=== PATIENT | male | born 1930 | race Caucasian/White ===

== ENCOUNTER 2019-10-20 19:46 | Inpatient (IN) | payer MEDICARE ==
--- NOTE | 2019-10-20 21:43 | XR ---
EXAMINATION TYPE: XR chest 2V DATE OF EXAM: 10/20/2019 COMPARISON: 07/04/2014 HISTORY: Difficulty breathing TECHNIQUE: Frontal and lateral views of the chest are obtained. FINDINGS: There is an enlarged cardiomediastinal silhouette. Retrocardiac opacity may represent conf luent pulmonary edema as there are is a small right and trace left pleural effusion. Bibasilar opacit ies are seen with moderate pulmonary vascular congestion. Osseous structures are suboptimally viewed however there is diffuse osseous demineralization seen. Right minor fissural fluid is present. No siz able pneumothorax seen. IMPRESSION: Findings suggesting cardiogenic fluid overload with small right and trace left pleural e ffusions, moderate pulmonary vascular congestion and marked cardiomegaly. Bibasilar airspace disease likely represents atelectasis or confluent pulmonary edema. Pneumonia is less likely.
[2019-10-20 21:46] LABS: Basophils % (A) 0 %; Eosinophils # (A) 0.1 k/uL (0-0.7); Eosinophils % (A) 1 %; HCT 47.4 % (39.0-53.0); HGB 14.9 gm/dL (13.0-17.5); Hypochromasia Slight; Lymphocytes # (A) 1.5 k/uL (1.0-4.8); Lymphocytes % (A) 15 %; MCH 29.2 pg (25.0-35.0); MCHC 31.5 g/dL (31.0-37.0); MCV 92.7 fL (80.0-100.0); Mean Platelet Volume 11.5; Monocytes # (A) 0.5 k/uL (0-1.0); Monocytes % (A) 5 %; Neutrophils # (A) 7.7 k/uL (1.3-7.7); Neutrophils % (A) 77 %; RBC 5.11 m/uL (4.30-5.90); RDW 13.8 % (11.5-15.5)
[2019-10-20 21:58] LABS: ALT 25 U/L (4-49); AST 29 U/L (17-59); African American GFR (CKD) >90 (>60 ml/min/1.73 sqM); Albumin 3.9 g/dL (3.5-5.0); Alkaline Phosphatase 114 U/L (38-126); Anion Gap 9 mmol/L; Blood Urea Nitrogen 24 mg/dL (9-20); Calcium 8.6 mg/dL (8.4-10.2); Carbon Dioxide 25 mmol/L (22-30); Chloride 109 mmol/L (98-107); Glucose 129 mg/dL (74-99); Magnesium 2.1 mg/dL (1.6-2.3); Non-African American GFR(CKD) 79 (>60 ml/min/1.73 sqM); Potassium 4.6 mmol/L (3.5-5.1); Sodium 143 mmol/L (137-145); Total Bilirubin 0.8 mg/dL (0.2-1.3)
[2019-10-20 22:01] LABS: Partial Thromboplastin Time 24.4 sec (22.0-30.0); Prothrombin Time 10.1 sec (9.0-12.0)
[2019-10-20 22:34] LABS: Platelet Count 136 k/uL (150-450)
[2019-10-20] MEDS ORDERED: FUROSEMIDE 10 MG/ML 4 ML VIAL IV STA (22:55)
--- NOTE | 2019-10-20 22:59 | ED ---
General Adult HPI - General Chief complaint: Shortness of Breath Stated complaint: SOB Time Seen by Provider: 10/20/19 20:06 Source: patient, EMS, RN notes reviewed Mode of arrival: EMS Limitations: no limitations - History of Present Illness Initial comments: 89-year-old male with a past medical history of CAD, heart failure, diabetes mellitus, hyperlipidemia, hypertension presents to the emergency department for a chief complaint of shortness of breath. Patient has had shortness of breath since yesterday. He states this worsens when he lies flat. Patient states he actually feels better at this time. He denies any associated chest pain whatso ever. Patient does have baseline dementia. We spoke with patient's legal guardian who does want him evaluated although he wanted to leave because he felt better.Patient has no other complaints at this time including chest pain, abdominal pain, nausea or vomiting, headache, or visual changes. - Related Data Home Medications Medication Instructions Recorded Confirmed Multivitamins, Thera [Multivitamin 1 tab PO DAILY 10/20/19 10/20/19 (formulary)] Allergies Allergy/AdvReac Type Severity Reaction Status Date / Time No Known Allergies Allergy Verified 10/20/19 23:02 Review of Systems ROS Statement: Those systems with pertinent positive or pertinent negative responses have been documented in the HPI. ROS Other: All systems not noted in ROS Statement are negative. Past Medical History Past Medical History: Coronary Artery Disease (CAD), Heart Failure, Diabetes Mellitus, Hyperlipidemia, Hypertension, Osteoarthritis (OA) Additional Past Medical History / Comment(s): obesity valley fever History of Any Multi-Drug Resistant Organisms: None Reported Additional Past Surgical History / Comment(s): lung surg Past Anesthesia/Blood Transfusion Reactions: No Reported Reaction Past Psychological History: No Psychological Hx Reported Smoking Status: Former smoker Past Alcohol Use History: Rare Past Drug Use History: None Reported - Past Family History Father Family Medical History: Myocardial Infarction ([place]) Additional Family Medical History / Comment(s): emphysema General Exam Limitations: no limitations General appearance: alert, in no apparent distress Head exam: Present: atraumatic, normocephalic, normal inspection Eye exam: Present: normal appearance, PERRL, EOMI. Absent: scleral icterus, conjunctival injection, periorbital swelling ENT exam: Present: normal exam, mucous membranes moist Neck exam: Present: normal inspection, full ROM. Absent: tenderness, meningismus, lymphadenopathy Respiratory exam: Present: decreased breath sounds. Absent: respiratory distress, wheezes, rales, rhonchi, stridor Cardiovascular Exam: Present: regular rate, normal rhythm, normal heart sounds. Absent: systolic murmur, diastolic murmur, rubs, gallop, clicks GI/Abdominal exam: Present: soft, normal bowel sounds. Absent: distended, tenderness, guarding, rebound, rigid Neurological exam: Present: alert Course Vital Signs 10/20/19 10/20/19 19:59 22:19 Temperature 98.1 F Pulse Rate 67 98 Respiratory 18 18 Rate Blood Pressure 148/109 151/100 O2 Sat by Pulse 97 96 Oximetry EKG Findings - EKG Comments: EKG Findings:: Sinus rhythm, right bundle branch, ventricular rate 110, VA to 140, QTC 535. This was compared to previous EKG from 2015 and appears similar Medical Decision Making - Medical Decision Making Vitals are stable however patient is requiring 4 L nasal cannula which she does not normally require at home. Heart rate is 67. Patient had exacerbation of CHF in 2014 and had an echo cardiogram performed which showed an ejection fraction of 25-30%. Today CBC CMP unremarkable. BNP is 13,500. Troponin 1 is 0.065. Chest x-ray suggestive of cardiogenic fluid overload with small right and trace left pleural effusion, moderate pulmonary vascular congestion and marked cardiomegaly. Bibasilar disease likely represents atelectasis or confluent pulmonary edema. She was started on Lasix. He does not have any chest pain and was therefore not heparinize. This is likely troponin leak. He will be admitted to [facility]. Dr. Hall did accept admission. - Lab Data Result diagrams: 10/20/19 21:28 10/20/19 21:28 Lab Results 10/20/19 10/20/19 10/20/19 Range/Units 21:28 21:28 21:28 WBC 10.0 (3.8-10.6) k/uL RBC 5.11 (4.30-5.90) m/uL Hgb 14.9 (13.0-17.5) gm/dL Hct 47.4 (39.0-53.0) % MCV 92.7 (80.0-100.0) fL MCH 29.2 (25.0-35.0) pg MCHC 31.5 (31.0-37.0) g/dL RDW 13.8 (11.5-15.5) % Plt Count 136 L (150-450) k/uL Neutrophils % 77 % Lymphocytes % 15 % Monocytes % 5 % Eosinophils % 1 % Basophils % 0 % Neutrophils # 7.7 (1.3-7.7) k/uL Lymphocytes # 1.5 (1.0-4.8) k/uL Monocytes # 0.5 (0-1.0) k/uL Eosinophils # 0.1 (0-0.7) k/uL Basophils # 0.0 (0-0.2) k/uL Hypochromasia Slight PT 10.1 (9.0-12.0) sec INR 1.0 (<1.2) APTT 24.4 (22.0-30.0) sec Sodium 143 (137-145) mmol/L Potassium 4.6 (3.5-5.1) mmol/L Chloride 109 H (98-107) mmol/L Carbon Dioxide 25 (22-30) mmol/L Anion Gap 9 mmol/L BUN 24 H (9-20) mg/dL Creatinine 0.84 (0.66-1.25) mg/dL Est GFR (CKD-EPI)AfAm >90 (>60 ml/min/1.73 sqM) Est GFR (CKD-EPI)NonAf 79 (>60 ml/min/1.73 sqM) Glucose 129 H (74-99) mg/dL Calcium 8.6 (8.4-10.2) mg/dL Magnesium 2.1 (1.6-2.3) mg/dL Total Bilirubin 0.8 (0.2-1.3) mg/dL AST 29 (17-59) U/L ALT 25 (4-49) U/L Alkaline Phosphatase 114 (38-126) U/L Troponin I (0.000-0.034) ng/mL NT-Pro-B Natriuret Pep pg/mL Total Protein 7.0 (6.3-8.2) g/dL Albumin 3.9 (3.5-5.0) g/dL 10/20/19 10/20/19 Range/Units 21:28 21:28 WBC (3.8-10.6) k/uL RBC (4.30-5.90) m/uL Hgb (13.0-17.5) gm/dL Hct (39.0-53.0) % MCV (80.0-100.0) fL MCH (25.0-35.0) pg MCHC (31.0-37.0) g/dL RDW (11.5-15.5) % Plt Count (150-450) k/uL Neutrophils % % Lymphocytes % % Monocytes % % Eosinophils % % Basophils % % Neutrophils # (1.3-7.7) k/uL Lymphocytes # (1.0-4.8) k/uL Monocytes # (0-1.0) k/uL Eosinophils # (0-0.7) k/uL Basophils # (0-0.2) k/uL Hypochromasia PT (9.0-12.0) sec INR (<1.2) APTT (22.0-30.0) sec Sodium (137-145) mmol/L Potassium (3.5-5.1) mmol/L Chloride (98-107) mmol/L Carbon Dioxide (22-30) mmol/L Anion Gap mmol/L BUN (9-20) mg/dL Creatinine (0.66-1.25) mg/dL Est GFR (CKD-EPI)AfAm (>60 ml/min/1.73 sqM) Est GFR (CKD-EPI)NonAf (>60 ml/min/1.73 sqM) Glucose (74-99) mg/dL Calcium (8.4-10.2) mg/dL Magnesium (1.6-2.3) mg/dL Total Bilirubin (0.2-1.3) mg/dL AST (17-59) U/L ALT (4-49) U/L Alkaline Phosphatase (38-126) U/L Troponin I 0.065 H* (0.000-0.034) ng/mL NT-Pro-B Natriuret Pep 24677 pg/mL Total Protein (6.3-8.2) g/dL Albumin (3.5-5.0) g/dL Disposition Clinical Impression: Bilateral pleural effusion, Acute pulmonary edema, HTN (hypertension), Shortness of breath, CHF exacerbation Disposition: ADMITTED IP TO THIS [facility] Condition: Fair Is patient prescribed a controlled substance at d/c from ED?: No Referrals: None,Stated [Primary Care Provider] - 1-2 days Time of Disposition: 22:59
[2019-10-20] MEDS ORDERED: NITROGLYCERIN SL TABS 0.4 MG TAB SUBLINGUAL PRN (23:14)
[2019-10-20] MEDS ORDERED: ASPIRIN 81 MG PO STA (23:14)
[2019-10-20] MEDS: FUROSEMIDE 10 MG/ML 4 ML VIAL IV SCH (23:51)
[2019-10-21 00:41] LABS: Glucose,Whole Blood 114 mg/dL (75-99)
[2019-10-21 04:06] LABS: Cholesterol 182 mg/dL (<200); HDL Cholesterol 33 mg/dL (40-60); LDL Cholesterol,Calculated 135 mg/dL (0-99); Triglycerides 69 mg/dL (<150)
[2019-10-21] MEDS: FUROSEMIDE 10 MG/ML 4 ML VIAL IV SCH ×2 (08:43→22:37)
[2019-10-21] MEDS ORDERED: ASPIRIN 325 MG TAB PO SCH (09:00)
[2019-10-21 11:26] LABS: Glucose,Whole Blood 99 mg/dL (75-99)
[2019-10-21 11:28] VITALS: BMI 35.6
[2019-10-21] MEDS: LOSARTAN 50 MG TAB PO SCH (12:57)
[2019-10-21 16:13] LABS: Glucose,Whole Blood 107 mg/dL (75-99)
[2019-10-21] MEDS: CARVEDILOL 3.125 MG TAB PO SCH (16:47)
--- NOTE | 2019-10-21 18:05 | HP ---
HISTORY AND PHYSICAL CHIEF COMPLAINT: Shortness of breath. HISTORY OF PRESENT ILLNESS: This is the first known admission for this 89-year-old white male who apparently lives in some type of a chcf. He does have a history of coronary artery disease and heart failure as well as diabetes and hyperlipidemia, but he is not on any medication. He is brought into the emergency room with shortness of breath. He was found to have cardiomegaly and small bilateral pleural effusions. He had no chest pain. He was admitted. REVIEW OF SYSTEMS: He denies any headaches, neurologic problems, difficulty with vision or hearing, chest pain, murmurs, rheumatic fever, abdominal pain, vomiting, diarrhea, melena, hematochezia, renal failure, hematuria, frequency, urgency, incontinence, nocturia, symptoms of hyperglycemia, etc. Past medical history, family history and personal and social histories are essentially otherwise unknown. He is only on a multivitamin apparently. He has no known allergies. He denies any surgery and denies smoking or drinking. 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 LABORATORY STUDIES: Demonstrated hemoglobin of 14 [place] [address]. Platelets were 166,000. INR was normal. Electrolytes were normal. BUN was slightly elevated at 24 with the creatinine 0.84. Blood sugar was 129. His troponin was elevated [place] [address]. PHYSICAL EXAMINATION: Blood pressure is 148/109 with a pulse of 67, respirations of 18. He is afebrile. Pulse ox was 97. In general, he appeared to be well developed, well nourished, in no acute distress. Skin color is normal. Skin is warm and dry. Lymph nodes are not enlarged. Head, ears, eyes, nose, mouth, and throat were normal. Neck veins not distended. Thyroid was not enlarged. Chest was clear. The cardiac exam demonstrated a grade 2/6 systolic murmur heard over the left precordium. The abdomen was slightly protuberant, soft, nontender without visceromegaly or masses. Bowel sounds were present. Extremities normal. Neurologically he was intact. 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 IMPRESSION: 1. Congestive heart failure. 2. Probable non ST segment elevation myocardial infarction. 3. Cardiac murmur. 4. Skin neoplasm on the left cheek. 5. Type 2 insulin dependent diabetes mellitus. 6. History of coronary artery disease. PLAN: 1. Bed rest. 2. IV fluids. 3. Serial EKGs and enzymes. 4. Consult with Cardiology. MMCODYL / IJN: [id number] /
--- NOTE | 2019-10-21 18:11 | PN ---
PROGRESS NOTE CHIEF COMPLAINT: Shortness of breath and congestive heart failure. HISTORY OF PRESENT ILLNESS: This gentleman is doing well. He has had no chest pain. Enzymes have been up. PHYSICAL EXAMINATION: Chest is clear posteriorly. Cardiac exam demonstrates his murmur and the abdomen is soft and nontender. Extremities are normal. IMPRESSION: 1. Acute congestive heart failure. 2. Chronic congestive heart failure. 3. Dilated cardiomyopathy. 4. Non ST segment elevation myocardial infarction. 5. Diabetes. 6. Lesion on the left cheek. PLAN: No change in program and await recommendations from Cardiology. MMODL / IJN: [id number] /
[2019-10-21 20:14] LABS: Glucose,Whole Blood 103 mg/dL (75-99)
[2019-10-22 06:11] LABS: Glucose,Whole Blood 89 mg/dL (75-99)
[2019-10-22] MEDS: CARVEDILOL 3.125 MG TAB PO SCH ×2 (06:20→17:27)
[2019-10-22] MEDS: LOSARTAN 50 MG TAB PO SCH (10:21)
[2019-10-22] MEDS: ASPIRIN 81 MG PO SCH (10:21)
[2019-10-22] MEDS: ATORVASTATIN 40 MG TAB PO SCH (10:21)
[2019-10-22 11:36] LABS: Glucose,Whole Blood 87 mg/dL (75-99)
[2019-10-22] MEDS: FUROSEMIDE 10 MG/ML 4 ML VIAL IV SCH ×2 (11:51→22:33)
--- NOTE | 2019-10-22 12:19 | P.CRDCN ---
History of Present Illness History of present illness: Miguel Angel Melchor This is Dr. Pradhan dictating a consult on this patient The patient was interviewed and examined by me IMPRESSION / ASSESSMENT: Patient admitted with increasing shortness of breath Hypertension and elevated blood pressure readings upon admission Abnormal troponins with a rising trend, non-Q-wave myocardial infarction Elevated LDL low HDL Past history of cardio myopathy and current symptoms of congestive heart failure likely systolic PLAN: Continue IV Lasix Start carvedilol 3.125 mg twice daily and losartan 50 mg by mouth daily Start atorvastatin Reduce aspirin to 81 mg daily IV heparin Strict intake output HPI Patient presents with increasing shortness of breath. Deny chest discomfort but his chronic enzymes are abnormal He has a history of cardio myopathy does not take his medications There is question in more detail his history was not very forthcoming. 70 stereo short of breath ROS: No fever chills or rigors, no cough, phlegm or expectoration, no nausea, vomiting or diarrhea, no hematuria, dysuria, no musculoskeletal complaints, no strokes or seizures, no skin lesions. EXAMINATION: Afebrile, blood pressure 157-89 and 126/80 short of breath Heart rates in the 60s REVIEW OF LABS, ECG & MEDICAL DATA Chest x-ray was reviewed and shows to increased pulmonary vascular markings/congestion Posterior retrocardiac density on the lateral view Twelve-lead ECG shows sinus tachycardia right bundle branch block left anterior fascicular block no ST segment abnormalities In 2015 he had severe LV dysfunction ejection fraction 25% (Across the aortic valve around 21 mmHg White count 10, hemoglobin 14.9, platelet count 136,000 Sodium 143 potassium 4.6 BUN 24 creatinine 0.84 Troponin 0.065 and 0.1 LDL 135 ProBNP 13,000 Renal function normal 0.84 creatinine Past Medical History Past Medical History: Coronary Artery Disease (CAD), Heart Failure, Diabetes Mellitus, Hyperlipidemia, Hypertension, Osteoarthritis (OA) Additional Past Medical History / Comment(s): obesity valley fever History of Any Multi-Drug Resistant Organisms: None Reported Additional Past Surgical History / Comment(s): lung surg Past Anesthesia/Blood Transfusion Reactions: No Reported Reaction Past Psychological History: No Psychological Hx Reported Smoking Status: Former smoker Past Alcohol Use History: Rare Past Drug Use History: None Reported - Past Family History Father Family Medical History: Myocardial Infarction ([place]) Additional Family Medical History / Comment(s): emphysema Medications and Allergies Home Medications Medication Instructions Recorded Confirmed Type Multivitamins, Thera [Multivitamin 1 tab PO DAILY 10/20/19 10/20/19 History (formulary)] Allergies Allergy/AdvReac Type Severity Reaction Status Date / Time No Known Allergies Allergy Verified 10/20/19 23:02 Physical Exam Vitals: Vital Signs Temp Pulse Pulse Resp BP BP Pulse Ox 10/21/19 08:00 96.9 F L 66 16 126/80 97 10/21/19 04:00 69 18 157/89 96 10/21/19 00:00 18 10/20/19 23:54 99 18 137/84 96 10/20/19 23:39 98.7 F 22 160/96 97 10/20/19 23:14 97 10/20/19 22:19 98 18 151/100 96 10/20/19 19:59 98.1 F 67 18 148/109 97 Intake and Output 10/20/19 10/21/19 10/21/19 22:59 06:59 14:59 Output Total 1500 550 Balance -1500 -550 Output: Urine 1500 550 Other: # Voids 2 Weight 112.491 kg 112.9 kg Results 10/20/19 21:28 10/20/19 21:28 Cardiac Enzymes 10/20/19 10/20/19 10/21/19 Range/Units 21:28 21:28 03:31 AST 29 (17-59) U/L Troponin I 0.065 H* 0.106 H* (0.000-0.034) ng/mL Coagulation 10/20/19 Range/Units 21:28 PT 10.1 (9.0-12.0) sec APTT 24.4 (22.0-30.0) sec Lipids 10/21/19 Range/Units 03:31 Triglycerides 69 (<150) mg/dL Cholesterol 182 (<200) mg/dL HDL Cholesterol 33 L (40-60) mg/dL CBC 10/20/19 Range/Units 21:28 WBC 10.0 (3.8-10.6) k/uL RBC 5.11 (4.30-5.90) m/uL Hgb 14.9 (13.0-17.5) gm/dL Hct 47.4 (39.0-53.0) % Plt Count 136 L (150-450) k/uL Comprehensive Metabolic Panel 10/20/19 Range/Units 21:28 Sodium 143 (137-145) mmol/L Potassium 4.6 (3.5-5.1) mmol/L Chloride 109 H (98-107) mmol/L Carbon Dioxide 25 (22-30) mmol/L BUN 24 H (9-20) mg/dL Creatinine 0.84 (0.66-1.25) mg/dL Glucose 129 H (74-99) mg/dL Calcium 8.6 (8.4-10.2) mg/dL AST 29 (17-59) U/L ALT 25 (4-49) U/L Alkaline Phosphatase 114 (38-126) U/L Total Protein 7.0 (6.3-8.2) g/dL Albumin 3.9 (3.5-5.0) g/dL Current Medications Generic Name Dose Route Start Last Admin Trade Name Freq PRN Reason Stop Dose Admin Aspirin 81 mg 10/22/19 09:00 Aspirin PO DAILY [facility] Atorvastatin Calcium 40 mg 10/22/19 09:00 Lipitor PO DAILY [facility] Carvedilol 3.125 mg 10/21/19 17:30 Coreg PO BID-W/MEALS [facility] Furosemide 40 mg 10/20/19 23:30 10/21/19 08:43 Lasix IV 40 mg Q12H [facility] Administration Losartan Potassium 50 mg 10/21/19 10:45 Cozaar PO DAILY [facility] Nitroglycerin 0.4 mg 10/20/19 23:14 Nitrostat SUBLINGUAL Q5M PRN Chest Pain Intake and Output 10/20/19 10/21/19 10/21/19 22:59 06:59 14:59 Output Total 1500 550 Balance -1500 -550 Output: Urine 1500 550 Other: # Voids 2 Weight 112.491 kg 112.9 kg 10/20/19 21:28 10/20/19 21:28
--- NOTE | 2019-10-22 12:32 | P.PN ---
Subjective Mr. Melchor Blood pressures 101/51, 126/78 mmHg afebrile pulse rate in the 50s and 60s Yesterday his blood pressure was elevated He is doing a lot better today. He is able to lie flat in bed not short of breath is a full history denies any chest discomfort No chest discomfort prior to admission either Only shortness of breath and coughing Feeling a lot better now On examination sitting up comfortably in bed No JVD, Blood pressures are well controlled Bibasilar crackles Systolic murmur No lower extremity edema Mucosae are moist He does not appear short of breath at all Impression Congestive heart failure likely systolic, 2-D echo pending Borderline abnormal troponins, likely non-Q-wave myocardial infarction Significant improvement with medical treatment This patient does not take any medications at home but in the past has had a history of cardio myopathy, systolic in the Suggest 2-D echo and Doppler study TSH CMP today The patient expressed his wishes that he wanted be treated medically only without any invasive procedures done He said he was 89 years old and he was still doing pretty well He promised he would come and see us in the office and take his medications regularly as prescribed He will see me in the office and I will maximize his medications prior to discharge Objective - Vital Signs Vital signs: Vital Signs Temp 98.3 F 10/22/19 11:56 Pulse 65 10/22/19 11:56 Resp 18 10/22/19 11:56 BP 126/78 10/22/19 11:56 Pulse Ox 99 10/22/19 11:56 Intake & Output 10/21/19 10/22/19 10/22/19 18:59 06:59 18:59 Intake Total 120 Output Total 1050 2125 Balance -1049 -2124 120 Weight 112.9 kg 104.5 kg Intake: Oral 120 Output: Urine 1050 2125 Other: Voiding Method Urinal Urinal # Voids 2 - Labs CBC & Chem 7: 10/20/19 21:28 10/20/19 21:28 Labs: Abnormal Lab Results - Last 24 Hours (Table) 10/21/19 10/21/19 Range/Units 16:11 20:12 POC Glucose (mg/dL) 107 H 103 H (75-99) mg/dL
[2019-10-22 13:24] LABS: African American GFR (CKD) >90 (>60 ml/min/1.73 sqM); Anion Gap 3 mmol/L; Blood Urea Nitrogen 24 mg/dL (9-20); Calcium 8.5 mg/dL (8.4-10.2); Carbon Dioxide 39 mmol/L (22-30); Chloride 96 mmol/L (98-107); Glucose 110 mg/dL (74-99); Non-African American GFR(CKD) 82 (>60 ml/min/1.73 sqM); Sodium 138 mmol/L (137-145)
[2019-10-22 13:28] LABS: Potassium 4.4 mmol/L (3.5-5.1)
--- NOTE | 2019-10-22 15:24 | PN ---
PROGRESS NOTE DATE OF SERVICE: 10/22/2019. CHIEF COMPLAINT: Congestive heart failure. HISTORY OF PRESENT ILLNESS: This gentleman is doing a little bit better. He is feeling a little bit less short of breath. PHYSICAL EXAMINATION: He still has scattered rales posteriorly and cardiac exam is unchanged with his murmur. Abdomen is soft, nontender. Neck veins not distended. IMPRESSION: 1. Acute congestive heart failure. 2. Pleural effusions. PLAN: 1. Continue with diuresis. 2. Repeat chest x-ray. 3. He can probably be discharged soon. MMODL / IJN: [id number] /
[2019-10-22 16:57] LABS: Glucose,Whole Blood 117 mg/dL (75-99)
[2019-10-22 20:36] LABS: Glucose,Whole Blood 119 mg/dL (75-99)
[2019-10-23 03:41] VITALS: RESP 18
[2019-10-23 06:19] LABS: Glucose,Whole Blood 99 mg/dL (75-99)
[2019-10-23] MEDS: CARVEDILOL 3.125 MG TAB PO SCH (06:23)
[2019-10-23 09:29] VITALS: TEMP 98.7
[2019-10-23] MEDS: ASPIRIN 81 MG PO SCH (09:30)
[2019-10-23] MEDS: ATORVASTATIN 40 MG TAB PO SCH (09:30)
[2019-10-23] MEDS: LOSARTAN 50 MG TAB PO SCH (09:30)
[2019-10-23] MEDS: FUROSEMIDE 10 MG/ML 4 ML VIAL IV SCH (09:30)
[2019-10-23 11:28] VITALS: BP 119/72; PULSE 57
[2019-10-23 12:14] LABS: Glucose,Whole Blood 108 mg/dL (75-99)
--- NOTE | 2019-10-23 15:07 | P.PN ---
Subjective Progress Note Date: 10/23/19 This is a pleasant 89-year-old gentleman with documented history of hypertension, hyperlipidemia congestive heart failure, who presented to the hospital with symptoms of worsening shortness of breath as well as accelerated hypertension. He was also noted to have abnormality in troponin, suggestive of a non-Q-wave myocardial infarction. Patient was seen in consultation by Dr. Pradhan over the weekend, he had diuresed well on IV Lasix and at the time of her examination today was feeling overall significantly better, breathing stable, up ambulating in the room and the vo without any difficulty. Denied any chest discomfort. Blood pressure 120/70 with a heart rate in the 60s, 97% on 2 L of oxygen. No lab data today. Objective - Vital Signs Vital signs: Vital Signs Temp 98.7 F 10/23/19 08:00 Pulse 57 L 10/23/19 11:48 Resp 18 10/23/19 11:48 BP 119/72 10/23/19 11:25 Pulse Ox 97 10/23/19 11:25 Intake & Output 10/22/19 10/23/19 10/23/19 18:59 06:59 18:59 Intake Total 714 110 360 Output Total 1675 Balance 714 -1565 360 Weight 101.5 kg Intake: IV 10 Invasive Line 2 10 Oral 714 100 360 Output: Urine 1675 Other: Voiding Method Urinal Urinal # Voids 1 0 # Bowel Movements 0 - Exam PHYSICAL EXAMINATION: GENERAL: 89-year-old gentleman in no acute distress at the time of my examination HEENT: Head is atraumatic, normocephalic. Pupils equal, round. Sclera anicteric. Conjunctiva are clear. Mucous membranes of the mouth are moist. Neck is supple. There is no elevated jugular venous pressure. No carotid bruit is heard. HEART EXAMINATION: Heart S1 S2 1 systolic murmur is heard CHEST EXAMINATION: Lungs are clear to auscultation and precussion. No chest wall tenderness is noted on palpation or with deep breathing. ABDOMEN: Soft, nontender. Bowel sounds are heard. No organomegaly noted. EXTREMITIES: 2+ peripheral pulses with no evidence of peripheral edema and no calf tenderness noted. NEUROLOGIC patient is awake, alert and oriented 3 . . - Labs CBC & Chem 7: 10/20/19 21:28 10/22/19 12:55 Labs: Abnormal Lab Results - Last 24 Hours (Table) 10/22/19 10/22/19 10/23/19 Range/Units 16:56 20:36 12:01 POC Glucose (mg/dL) 117 H 119 H 108 H (75-99) mg/dL Assessment and Plan Plan: Assessment and plan #1 accelerated hypertension #2 systolic congestive heart failure acute on chronic #3 hyperlipidemia #4 non-Q-wave FL Plan We will discontinue the IV Lasix and start the patient on oral diuretics. From cardiology's perspective he may be able to be discharged home today to follow-up in the office post discharge. DNP note has been reviewed, I agree with a documented findings and plan of care. Patient was seen and examined.
[2019-10-23] MEDS ORDERED: FUROSEMIDE 40 MG TAB PO SCH (16:00)
[2019-10-24] MEDS ORDERED: SPIRONOLACTONE 25 MG TAB PO SCH (09:00)
--- NOTE | 2019-10-24 21:24 | ECHOF ---
Referral Reason:sob MEASUREMENTS -------- HEIGHT: 177.8 cm WEIGHT: 101.2 kg BP: IVSd: 1.6 cm (0.6 - 1.1) LVIDd: 5.3 cm (3.9 - 5.3) LVPWd: 1.9 cm (0.6 - 1.1) IVSs: 1.7 cm LVIDs: 4.1 cm LVPWs: 2.0 cm RVIDd: 3.8 cm (< 3.3) LAESV Index (A-L): 62.79 ml/m Ao Diam: 4.1 cm (2.0 - 3.7) AV Cusp: 0.9 cm (1.5 - 2.6) EPSS: 1.1 cm MV E Jonathan: 0.67 m/s MV DecT: 172 ms MV A Jonathan: 0.85 m/s MV E/A Ratio: 0.79 AV maxP.75 mmHg AV meanP.63 mmHg RAP: 5.00 mmHg RVSP: 37.39 mmHg MV EF SLOPE: 45.41 mm/s (70 - 150) MV EXCURSION: 16.79 mm (> 18.000) FINDINGS -------- Undetermined rhythm. This was a technically difficult study with suboptimal apical views. The left ventricular size is normal. There is severe concentric left ventricular hypertrophy. The re is moderate global hypokinesis of LV . Overall left ventricular systolic function is moderately impaired with, an EF between 35 - 40 %. Mitral Doppler inflow pattern suggests diastolic filling ab normality {E/E'}. The right ventricle is mild to moderately enlarged. LA is severely dilated >40 ml/m2 The right atrium was not well visualized. Lumason used Interatrial and interventricular septum intact. There is moderate aortic stenosis present. Peak/mean gradient across the Aortic Valve is 33.75mmHg / 21.63mmHg. [id number] mitral regurgitation is present. Moderate tricuspid regurgitation present. There is mild pulmonary hypertension. The right ventric ular systolic pressure, as measured by Doppler, is 37.39mmHg. There is no pulmonic regurgitation present. The aortic root size is normal. IVC Not well visulized. There is a small, generalized pericardial effusion present. CONCLUSIONS -------- 1. Undetermined rhythm. 2. This was a technically difficult study with suboptimal apical views. 3. The left ventricular size is normal. 4. There is severe concentric left ventricular hypertrophy. 5. There is moderate global hypokinesis of LV . 6. Overall left ventricular systolic function is moderately impaired with, an EF between 35 - 40 %. 7. Mitral Doppler inflow pattern suggest diastolic filling abnormality {E/E'}. 8. The right ventricle is mild to moderately enlarged. 9. LA is severely dilated >40 ml/m2 10. The right atrium was not well visualized. 11. Lumason used 12. Interatrial and interventricular septum intact. 13. There is moderate aortic stenosis present. 14. Peak/mean gradient across the Aortic Valve is 33.75mmHg / 21.63mmHg. 15. Kfyo-ow-fqkkvcsv mitral regurgitation is present. 16. Moderate tricuspid regurgitation present. 17. There is mild pulmonary hypertension. 18. The right ventricular systolic pressure, as measured by Doppler, is 37.39mmHg. 19. There is no pulmonic regurgitation present. 20. The aortic root size is normal. 21. IVC Not well visulized. 22. There is a small, generalized pericardial effusion present. HEALTHCARE SOCIAL WORKER: Bryanna Seals RDCS
== END 2019-10-23 16:00 | disposition home or self-care (01) | DRG 280 ==
LOC: EEVIPCON 19:46 → EC 19:46 → 3SCARD 22:52
PROVIDERS: ADMIT Family Medicine; ATTEND Family Medicine
DX: I21.4 Non-ST elevation (NSTEMI) myocardial infarction (principal); I50.23 Acute on chronic systolic (congestive) heart failure; I42.0 Dilated cardiomyopathy; I45.2 Bifascicular block; I11.0 Hypertensive heart disease with heart failure; E11.9 Type 2 diabetes mellitus without complications; E78.5 Hyperlipidemia, unspecified; F03.90 Unspecified dementia, unspecified severity, without behavioral disturbance, psychotic disturbance, mood disturbance, and anxiety; I25.10 Atherosclerotic heart disease of native coronary artery without angina pectoris; Z79.4 Long term (current) use of insulin; Z82.49 Family history of ischemic heart disease and other diseases of the circulatory system; Z82.5 Family history of asthma and other chronic lower respiratory diseases; Z87.891 Personal history of nicotine dependence; E66.9 Obesity, unspecified; Z68.32 Body mass index [BMI] 32.0-32.9, adult; Z11.59 Encounter for screening for other viral diseases; R01.1 Cardiac murmur, unspecified; C44.309 Unspecified malignant neoplasm of skin of other parts of face
CPT/HCPCS: 36415; 71046; 80048; 80053; 80061; 83735; 83880; 84443; 84484; 85025; 85610; 85730; 87635; 93005; 93306; 96374; 99285

== ENCOUNTER 2019-11-18 10:21 | Emergency (ER) | payer MEDICARE ==
[2019-11-18 10:33] VITALS: RESP 18
[2019-11-18 10:49] LABS: Glucose,Whole Blood 109 mg/dL (75-99)
[2019-11-18 11:09] LABS: Partial Thromboplastin Time 24.6 sec (22.0-30.0); Prothrombin Time 10.7 sec (9.0-12.0)
[2019-11-18 11:10] LABS: Basophils % (A) 0 %; Eosinophils # (A) 0.2 k/uL (0-0.7); Eosinophils % (A) 2 %; HCT 42.6 % (39.0-53.0); HGB 14.2 gm/dL (13.0-17.5); Lymphocytes # (A) 1.7 k/uL (1.0-4.8); Lymphocytes % (A) 25 %; MCH 29.6 pg (25.0-35.0); MCHC 33.4 g/dL (31.0-37.0); MCV 88.7 fL (80.0-100.0); Mean Platelet Volume 10.6; Monocytes # (A) 0.4 k/uL (0-1.0); Monocytes % (A) 5 %; Neutrophils # (A) 4.6 k/uL (1.3-7.7); Neutrophils % (A) 66 %; Platelet Count 102 k/uL (150-450)
[2019-11-18 11:20] LABS: Albumin 3.5 g/dL (3.5-5.0); Calcium 8.8 mg/dL (8.4-10.2); Magnesium 2.1 mg/dL (1.6-2.3); Potassium 4.4 mmol/L (3.5-5.1); Total Bilirubin 1.1 mg/dL (0.2-1.3); Total Protein 6.4 g/dL (6.3-8.2)
--- NOTE | 2019-11-18 11:23 | XR ---
EXAMINATION TYPE: XR chest 2V DATE OF EXAM: 11/18/2019 HISTORY: difficulty breathing. REFERENCE: Previous study dated 10/20/2019. FINDINGS: The heart is enlarged. There is some minimal right basilar airspace disease. There is blunt ing of the right CP angle. I see no definite edema. IMPRESSION: 1. CARDIOMEGALY. 2. I COULD NOT EXCLUDE A DEVELOPING RIGHT LOWER LOBE INFILTRATE.
--- NOTE | 2019-11-18 12:06 | CT ---
EXAMINATION TYPE: CT brain wo con DATE OF EXAM: 11/18/2019 COMPARISON: NONE HISTORY: generalized weakness CT DLP: 1082.4 mGycm Automated exposure control for dose reduction was used. FINDINGS: There are generalized changes of sulcal prominence and ventriculomegaly compatible with atrophic garcia ge. There is physiologic calcification of the basal ganglia. There is diffuse periventricular white m atter lucency compatible with chronic white matter ischemic change. There is mild vascular calcificat ion. There is no acute focal lesion, mass effect or midline shift identified. I do not see evidence o f intracranial blood. Visualized portions of the paranasal sinuses and mastoids are clear. The bony calvarium is intact. IMPRESSION: 1. NO ACUTE INTRACRANIAL ABNORMALITY. 2. DEGENERATIVE CHANGE.
[2019-11-18] MEDS ORDERED: cefTRIAXone IN SWFI 1,000 MG/10 ML SYRINGE IVP STA (13:18)
--- NOTE | 2019-11-18 13:33 | ED ---
Weakness HPI - General Chief complaint: Weakness Stated complaint: weakness Time Seen by Provider: 11/18/19 10:28 Source: patient, EMS, RN notes reviewed Mode of arrival: EMS Limitations: no limitations - History of Present Illness Initial comments: This 89-year-old male who states he's been feeling wobbly when he tries to walk onset this morning he says slight cough no fevers chills no sweats just a dry cough. The chest pain no palpitations no focal weakness is felt wobbly MD Complaint: generalized weakness - Related Data Home Medications Medication Instructions Recorded Confirmed Multivitamins, Thera [Multivitamin 1 tab PO DAILY 10/20/19 10/20/19 (formulary)] Previous Rx's Medication Instructions Recorded Aspirin 81 mg PO DAILY #100 chew 10/23/19 Atorvastatin [Lipitor] 40 mg PO DAILY #30 tab 10/23/19 Carvedilol [Coreg] 3.125 mg PO BID-W/MEALS #60 tab 10/23/19 Furosemide [Lasix] 40 mg PO BID@0900,1600 #60 tab 10/23/19 Losartan [Cozaar] 50 mg PO DAILY #30 tab 10/23/19 Spironolactone [Aldactone] 25 mg PO DAILY #30 tab 10/23/19 Azithromycin [Zithromax Z-pack] 250 mg PO DIRECTED #6 tab 11/18/19 Allergies Allergy/AdvReac Type Severity Reaction Status Date / Time No Known Allergies Allergy Verified 11/18/19 10:29 Review of Systems ROS Statement: Those systems with pertinent positive or pertinent negative responses have been documented in the HPI. ROS Other: All systems not noted in ROS Statement are negative. Past Medical History Past Medical History: Coronary Artery Disease (CAD), Heart Failure, Diabetes Mellitus, Hyperlipidemia, Hypertension, Osteoarthritis (OA) Additional Past Medical History / Comment(s): obesity valley fever History of Any Multi-Drug Resistant Organisms: None Reported Additional Past Surgical History / Comment(s): lung surg Past Anesthesia/Blood Transfusion Reactions: No Reported Reaction Past Psychological History: No Psychological Hx Reported Smoking Status: Former smoker Past Alcohol Use History: Rare Past Drug Use History: None Reported - Past Family History Father Family Medical History: Myocardial Infarction ([place]) Additional Family Medical History / Comment(s): emphysema General Exam - General Exam Comments Initial Comments: This is a well-developed well-nourished awake alert oriented 3 male Limitations: no limitations General appearance: alert, in no apparent distress Head exam: Present: atraumatic, normocephalic, normal inspection Eye exam: Present: normal appearance, PERRL, EOMI. Absent: scleral icterus, conjunctival injection, periorbital swelling ENT exam: Present: mucous membranes dry Neck exam: Present: normal inspection. Absent: tenderness, meningismus, lymphadenopathy Respiratory exam: Present: normal lung sounds bilaterally. Absent: respiratory distress, wheezes, rales, rhonchi, stridor Cardiovascular Exam: Present: regular rate, normal rhythm, normal heart sounds. Absent: systolic murmur, diastolic murmur, rubs, gallop, clicks GI/Abdominal exam: Present: soft, normal bowel sounds. Absent: distended, tenderness, guarding, rebound, rigid Extremities exam: Present: normal inspection, full ROM, normal capillary refill. Absent: tenderness, pedal edema, joint swelling, calf tenderness Back exam: Present: normal inspection Neurological exam: Present: alert, oriented X3, CN II-XII intact Psychiatric exam: Present: normal affect, normal mood Skin exam: Present: warm, dry, intact, normal color. Absent: rash Course Vital Signs 11/18/19 10:22 Temperature 98.4 F Pulse Rate 84 Respiratory 18 Rate Blood Pressure 140/84 O2 Sat by Pulse 96 Oximetry Medical Decision Making - Medical Decision Making Patient was feeling much improved after IV hydration. He feels no chest pain no palpitations no shortness of breath is able ambulate without any difficulty whatsoever. We did discuss the findings he would like to be discharged he'll be placed on oral antibiotics. She did remove his own IV while in the room. Return parameters discussed - Lab Data Result diagrams: 11/18/19 10:40 11/18/19 10:40 Lab Results 11/18/19 11/18/19 11/18/19 Range/Units 10:40 10:40 10:40 WBC 7.0 (3.8-10.6) k/uL RBC 4.80 (4.30-5.90) m/uL Hgb 14.2 (13.0-17.5) gm/dL Hct 42.6 (39.0-53.0) % MCV 88.7 (80.0-100.0) fL MCH 29.6 (25.0-35.0) pg MCHC 33.4 (31.0-37.0) g/dL RDW 13.0 (11.5-15.5) % Plt Count 102 L (150-450) k/uL Neutrophils % 66 % Lymphocytes % 25 % Monocytes % 5 % Eosinophils % 2 % Basophils % 0 % Neutrophils # 4.6 (1.3-7.7) k/uL Lymphocytes # 1.7 (1.0-4.8) k/uL Monocytes # 0.4 (0-1.0) k/uL Eosinophils # 0.2 (0-0.7) k/uL Basophils # 0.0 (0-0.2) k/uL PT 10.7 (9.0-12.0) sec INR 1.0 (<1.2) APTT 24.6 (22.0-30.0) sec Sodium 139 (137-145) mmol/L Potassium 4.4 (3.5-5.1) mmol/L Chloride 105 (98-107) mmol/L Carbon Dioxide 30 (22-30) mmol/L Anion Gap 4 mmol/L BUN 27 H (9-20) mg/dL Creatinine 1.09 (0.66-1.25) mg/dL Est GFR (CKD-EPI)AfAm 70 (>60 ml/min/1.73 sqM) Est GFR (CKD-EPI)NonAf 61 (>60 ml/min/1.73 sqM) Glucose 114 H (74-99) mg/dL POC Glucose (mg/dL) (75-99) mg/dL POC Glu Brim Curler ID Plasma Lactic Acid Franklyn (0.7-2.0) mmol/L Calcium 8.8 (8.4-10.2) mg/dL Magnesium 2.1 (1.6-2.3) mg/dL Total Bilirubin 1.1 (0.2-1.3) mg/dL AST 22 (17-59) U/L ALT 18 (4-49) U/L Alkaline Phosphatase 78 (38-126) U/L Creatine Kinase 23 L (55-170) U/L Troponin I (0.000-0.034) ng/mL Total Protein 6.4 (6.3-8.2) g/dL Albumin 3.5 (3.5-5.0) g/dL 06/21/20 06/21/20 06/21/20 Range/Units 10:40 10:40 10:47 WBC (3.8-10.6) k/uL RBC (4.30-5.90) m/uL Hgb (13.0-17.5) gm/dL Hct (39.0-53.0) % MCV (80.0-100.0) fL MCH (25.0-35.0) pg MCHC (31.0-37.0) g/dL RDW (11.5-15.5) % Plt Count (150-450) k/uL Neutrophils % % Lymphocytes % % Monocytes % % Eosinophils % % Basophils % % Neutrophils # (1.3-7.7) k/uL Lymphocytes # (1.0-4.8) k/uL Monocytes # (0-1.0) k/uL Eosinophils # (0-0.7) k/uL Basophils # (0-0.2) k/uL PT (9.0-12.0) sec INR (<1.2) APTT (22.0-30.0) sec Sodium (137-145) mmol/L Potassium (3.5-5.1) mmol/L Chloride (98-107) mmol/L Carbon Dioxide (22-30) mmol/L Anion Gap mmol/L BUN (9-20) mg/dL Creatinine (0.66-1.25) mg/dL Est GFR (CKD-EPI)AfAm (>60 ml/min/1.73 sqM) Est GFR (CKD-EPI)NonAf (>60 ml/min/1.73 sqM) Glucose (74-99) mg/dL POC Glucose (mg/dL) 109 H (75-99) mg/dL POC Glu Brim Curler ID Svacha, II, Vignesh Plasma Lactic Acid Franklyn 1.4 (0.7-2.0) mmol/L Calcium (8.4-10.2) mg/dL Magnesium (1.6-2.3) mg/dL Total Bilirubin (0.2-1.3) mg/dL AST (17-59) U/L ALT (4-49) U/L Alkaline Phosphatase (38-126) U/L Creatine Kinase (55-170) U/L Troponin I 0.013 (0.000-0.034) ng/mL Total Protein (6.3-8.2) g/dL Albumin (3.5-5.0) g/dL - EKG Data -: EKG Interpreted by Me (Sinus rhythm with occasional PVCs by bundle-branch block left anterior fasc) EKG Comments: I bundle-branch block left anterior fascicular block rate 81 WI interval 150 QRS duration 160 QT since QTC 450/522 - Radiology Data Radiology results: report reviewed (Imaging was reviewed there is some evidence of early pneumonia and a right lower lobe.), image reviewed Disposition Clinical Impression: Pneumonitis, Dehydration, Premature ventricular contractions Disposition: HOME SELF-CARE Condition: Good Prescriptions: Azithromycin [Zithromax Z-pack] 250 mg PO DIRECTED #6 tab Is patient prescribed a controlled substance at d/c from ED?: No Referrals: None,Stated [Primary Care Provider] - 1-2 days
[2019-11-18] MEDS ORDERED: AZITHROMYCIN 500 MG TAB PO STA (13:59)
[2019-11-18 14:00] VITALS: BP 119/85; PULSE 78; TEMP 97.9
== END 2019-11-18 14:18 | disposition home or self-care (01) ==
LOC: EC 10:21
DX: I49.3 Ventricular premature depolarization (principal); E86.0 Dehydration; J18.9 Pneumonia, unspecified organism; Z87.891 Personal history of nicotine dependence; Z82.49 Family history of ischemic heart disease and other diseases of the circulatory system
CPT/HCPCS: 36415; 70450; 71046; 80053; 82550; 83605; 83735; 84484; 85025; 85610; 85730; 87040; 93005; 99285

== ENCOUNTER 2020-07-31 12:49 | Inpatient (IN) | payer MEDICARE ==
--- NOTE | 2020-07-31 13:10 | ED ---
General Adult HPI - General Chief complaint: Allergic Reaction Stated complaint: Scrotal edema Time Seen by Provider: 07/31/20 12:50 Source: patient, EMS Mode of arrival: EMS Limitations: no limitations - History of Present Illness Initial comments: Patient is a pleasant 89-year-old male presenting to the emergency department with concerns regarding scrotal edema. Onset of symptoms was around 2 weeks ago. Patient denies any associated discomfort or color change. No difficulty with urination. No history of similar symptoms previously. Patient does receive his injection for immunization of providers around this time. No dyspnea or leg swelling. - Related Data Home Medications Medication Instructions Recorded Confirmed Multivitamins, Thera [Multivitamin 1 tab PO DAILY 10/20/19 10/20/19 (formulary)] Previous Rx's Medication Instructions Recorded Aspirin 81 mg PO DAILY #100 chew 10/23/19 Atorvastatin [Lipitor] 40 mg PO DAILY #30 tab 10/23/19 Furosemide [Lasix] 40 mg PO BID@0900,1600 #60 tab 10/23/19 Losartan [Cozaar] 50 mg PO DAILY #30 tab 10/23/19 Spironolactone [Aldactone] 25 mg PO DAILY #30 tab 10/23/19 carvediloL [Coreg] 3.125 mg PO BID-W/MEALS #60 tab 10/23/19 Azithromycin [Zithromax Z-pack] 250 mg PO DIRECTED #6 tab 11/18/19 Allergies Allergy/AdvReac Type Severity Reaction Status Date / Time No Known Allergies Allergy Verified 07/31/20 12:58 Review of Systems ROS Statement: Those systems with pertinent positive or pertinent negative responses have been documented in the HPI. ROS Other: All systems not noted in ROS Statement are negative. Constitutional: Denies: fever Eyes: Denies: eye pain ENT: Denies: ear pain Respiratory: Denies: cough, dyspnea Cardiovascular: Denies: chest pain Endocrine: Denies: fatigue Gastrointestinal: Denies: abdominal pain Genitourinary: Reports: as per HPI. Denies: dysuria, testicular pain Musculoskeletal: Denies: back pain Skin: Denies: rash Neurological: Denies: weakness Past Medical History Past Medical History: Coronary Artery Disease (CAD), Heart Failure, Diabetes Mellitus, Hyperlipidemia, Hypertension, Osteoarthritis (OA) Additional Past Medical History / Comment(s): obesity valley fever History of Any Multi-Drug Resistant Organisms: None Reported Additional Past Surgical History / Comment(s): lung surg Past Anesthesia/Blood Transfusion Reactions: No Reported Reaction Past Psychological History: No Psychological Hx Reported Past Alcohol Use History: Rare Past Drug Use History: None Reported - Past Family History Father Family Medical History: Myocardial Infarction ([place]) Additional Family Medical History / Comment(s): emphysema General Exam Limitations: no limitations General appearance: alert, in no apparent distress Head exam: Present: atraumatic Eye exam: Present: other (Mild left-sided edema without erythema) Neck exam: Present: normal inspection Respiratory exam: Present: normal lung sounds bilaterally Cardiovascular Exam: Present: regular rate, normal rhythm GI/Abdominal exam: Present: soft. Absent: tenderness exam: Present: other (Moderate edema of the scrotum and penis. No tenderness. No erythema. No skin breakdown or lacerations.) Extremities exam: Present: normal inspection Neurological exam: Present: alert Psychiatric exam: Present: normal affect, normal mood Skin exam: Present: normal color Course Vital Signs 07/31/20 07/31/20 12:50 15:51 Temperature 97.8 F Pulse Rate 87 68 Respiratory 18 18 Rate Blood Pressure 147/97 99/70 O2 Sat by Pulse 94 L 94 L Oximetry Medical Decision Making - Medical Decision Making Patient reevaluated and updated. Case discussed with Dr. Weaver, who will admit covering for hospital call. - Radiology Data Radiology results: report reviewed (Ultrasound the scrotum concerning for third spacing versus cellulitis), image reviewed (Chest x-ray concerning for interstitial edema) Disposition Clinical Impression: Edema Disposition: ADMITTED IP TO THIS HOSP Is patient prescribed a controlled substance at d/c from ED?: No Referrals: None,Stated [Primary Care Provider] - 1-2 days Decision Time: 16:04
--- NOTE | 2020-07-31 14:35 | US ---
EXAMINATION TYPE: US scrotum with doppler. DATE OF EXAM: 07/31/2020 COMPARISON: NONE CLINICAL HISTORY: 89-year-old male with edema TECHNIQUE: Grayscale and color Doppler Duplex imaging performed of the scrotum. FINDINGS: Severe diffuse scrotal soft tissue thickening and edema up to 4.8 cm thick. EXAM MEASUREMENTS: TESTICLES: Right Testicle: 3.8 x 2.9 x 2.4 cm. Left Testicle: 3.8 x 2.5 x 2.6 cm. The testicles show normal homogeneous appearance without hyperemia. There is satisfactory arterial an d venous flow bilaterally. EPIDIDYMIS HEAD: Right Epididymis: .6 x 1.2 x .8 cm Left Epididymis: .8 x 1.5 x .8 cm Presence of hydroceles: yes, moderate on both sides. IMPRESSION: 1. Moderate bilateral hydroceles and severe edematous thickening of the scrotum. Correlate for severe third spacing or cellulitis. 2. No sonographic evidence for testicular torsion or epididymoorchitis.
--- NOTE | 2020-07-31 15:33 | XR ---
EXAMINATION TYPE: XR chest 2V DATE OF EXAM: 07/31/2020 COMPARISON: Chest x-ray 11/18/2019 HISTORY: Edema, abnormal chest x-ray TECHNIQUE: Frontal and lateral views of the chest are obtained. FINDINGS: Aorta appears dense and may be ectatic. Heart is enlarged, patient is rotated. No evident pneumothorax. Central vascularity and interstitium appears somewhat prominently. Possible small effus ion. IMPRESSION: Correlate for pulmonary venous hypertension and interstitial edema.
[2020-07-31] MEDS ORDERED: ASPIRIN 325 MG TAB PO STA (16:06)
[2020-07-31] MEDS: FUROSEMIDE 10 MG/ML 4 ML VIAL IV SCH (16:46)
[2020-07-31] MEDS: SODIUM CHLORIDE 0.9% 1,000 ML IV SCH (16:47)
[2020-07-31 16:54] LABS: Appearance,Urine Clear (Clear); Bilirubin,Urine Negative (Negative); Blood,Urine Negative (Negative); Color,Urine Light Yellow; Glucose,Urine (UA) Negative (Negative); Ketones,Urine Negative (Negative); Leukocyte Esterase,Urine Negative (Negative); Nitrite,Urine Negative (Negative); Protein,Urine Trace (Negative); Specific Gravity,Urine 1.009 (1.001-1.035); Urobilinogen,Urine <2.0 mg/dL (<2.0)
[2020-07-31 17:08] LABS: Albumin 3.9 g/dL (3.5-5.0); Calcium 8.8 mg/dL (8.4-10.2); Potassium 4.2 mmol/L (3.5-5.1); Total Bilirubin 1.7 mg/dL (0.2-1.3); Total Protein 7.1 g/dL (6.3-8.2)
[2020-07-31 17:12] LABS: Basophils % (A) 0 %; Eosinophils # (A) 0.1 k/uL (0-0.7); Eosinophils % (A) 2 %; HCT 42.9 % (39.0-53.0); Lymphocytes # (A) 1.4 k/uL (1.0-4.8); Lymphocytes % (A) 17 %; MCH 28.7 pg (25.0-35.0); MCHC 32.7 g/dL (31.0-37.0); MCV 87.7 fL (80.0-100.0); Mean Platelet Volume 11.5; Monocytes # (A) 0.6 k/uL (0-1.0); Monocytes % (A) 8 %; Neutrophils # (A) 5.6 k/uL (1.3-7.7); Neutrophils % (A) 72 %; RBC 4.89 m/uL (4.30-5.90); WBC 7.9 k/uL (3.8-10.6)
[2020-07-31 17:14] LABS: INR 1.1 (<1.2); Partial Thromboplastin Time 25.4 sec (22.0-30.0); Prothrombin Time 11.2 sec (9.0-12.0)
[2020-07-31 17:35] LABS: Platelet Count 98 k/uL (150-450)
[2020-07-31] MEDS ORDERED: NON FORMULARY DRUG (Acetaminophen [Tylenol Arthritis] 650 MG Tablet.Er) PO PRN (18:00)
[2020-07-31] MEDS ORDERED: ACETAMINOPHEN TAB 500 MG TAB PO PRN (18:03)
[2020-07-31] MEDS ORDERED: HYDROcodone/APAP 5-325MG 1 EACH TAB PO PRN (18:03)
[2020-07-31] MEDS: AMPICILLIN-SULBACTAM 3 GM in SODIUM CHLORIDE 0.9% 100 ML IVPB SCH (18:29)
[2020-07-31] MEDS: carvediloL 6.25 MG TAB PO SCH (18:30)
--- NOTE | 2020-07-31 18:40 | HP ---
HISTORY AND PHYSICAL DATE OF SERVICE: 07/31/2020 CHIEF COMPLAINTS: Scrotal edema and leg swelling. HISTORY OF PRESENT ILLNESS: This is an 89-year-old gentleman with a past medical history of multiple medical problems including coronary artery disease, history of CHF, diabetes mellitus type 2, hypertension, hyperlipidemia, who is a resident of an [facility] home and was apparently taken to [facility] with complaints of scrotal edema which started about 2 weeks ago. The patient had some pain and discomfort and discoloration and the patient also had some shortness of breath. The patient also has some bilateral leg edema. Patient admitted for further evaluation and treatment. Evaluation showed platelets are 98, and BNP was 15,000. Previous 2D echo done last year showed ejection fraction 35-40%. The chest x-ray done today which is personally reviewed showed some evidence of CHF and cardiomegaly. Also the scrotal ultrasound was also done which showed moderate bilateral hydroceles and severe edematous thickening of the scrotum and cellulitis was also noted. There is no history of fever, rigors, chills. No history of headache, loss of consciousness, seizures. The patient appears disheveled at this time. PAST MEDICAL HISTORY: 1. History of coronary artery disease. 2. History of CHF. 3. Diabetes mellitus type 2. 4. History of DJD. MEDICATIONS: Prior to admission include home medications are K-Dur 20 mEq daily, Cozaar, Lasix, vitamin B12, Coreg, Lipitor, aspirin, Tylenol Arthritis. ALLERGIES: None. FAMILY HISTORY: History of myocardial infarction and COPD. SOCIAL HISTORY: Previous history of smoking. No history of alcohol. REVIEW OF SYSTEMS: ENT: No diminished vision or hearing. CARDIOVASCULAR: No angina. RESPIRATORY: As mentioned earlier. GI: As mentioned earlier. : No dysuria. NERVOUS SYSTEM: No numbness or weakness. ALLERGY/IMMUNOLOGY: No asthma or hayfever. MUSCULOSKELETAL: As mentioned earlier. HEMATOLOGY: No history of anemia. ENDOCRINE: No history of diabetes or hypothyroidism. CONSTITUTIONAL: As mentioned earlier. DERMATOLOGY: Negative. RHEUMATOLOGY: Negative. PSYCHIATRY: As mentioned earlier. PHYSICAL EXAM: GENERAL: Patient is alert and oriented times two. VITAL SIGNS: Pulse 69, blood pressure 106/87, respirations 18, temperature 97.8, pulse ox 94% on room air. HEENT: Conjunctivae normal. Oral mucosa moist. NECK: No jugular venous distention. No carotid bruits. No lymph node enlargement. RESPIRATORY: Breath sounds diminished at the bases. A few scattered rhonchi and crackles. HEART: S1 and S2, muffled. ABDOMEN: Soft, no tenderness. Obese. : Bilateral scrotal edema and erythema also present, mildly tender. EXTREMITIES: Bilateral leg edema. NERVOUS: Higher functions as mentioned earlier. Moves all four limbs. No focal motor or sensory deficits. LYMPHATICS: No lymph nodes palpable in the neck or axillae. SKIN: No rashes. JOINTS: No active deforming arthropathy. LAB STUDIES: Platelets are 98. BUN is 26 and total bilirubin is 1.7. ASSESSMENT: 1. Bilateral scrotal cellulitis with hydroceles and failure of outpatient treatment. 2. Possible congestive heart failure acute exacerbation with acute on chronic systolic dysfunction with ejection fraction of 35-40%. 3. Elevated bilirubin. 4. Thrombocytopenia. 5. Increased BUN. 6. History of coronary artery disease. 7. Diabetes mellitus type 2. 8. Hypertension. 9. Hyperlipidemia. 10.History of degenerative joint disease. 11.History of valley fever. 12.Obesity with body mass index of 36.4. RECOMMENDATIONS AND DISCUSSION: In this 89-year-old gentleman with presented with multiple complex medical issues, we will monitor the patient closely. Continue the current medications. We will initiate IV diuretics. Monitor fluid and electrolyte balance closely. Cardiology consultation. Broad-spectrum IV antibiotics. I would also get infectious disease evaluation in view of the scrotum. Otherwise, resume the home medication after consultation. Prognosis guarded because of multiple complex medical issues. Further recommendations to follow. See orders for further details. DVT prophylaxis. Incentive spirometry. MMODL / IJN: [id number] /
[2020-07-31] MEDS: HEPARIN SODIUM,PORCINE 5,000 UNIT/ML 1 ML VIAL SQ SCH (22:14)
[2020-07-31] MEDS: ATORVASTATIN 40 MG TAB PO SCH (22:14)
[2020-08-01] MEDS: AMPICILLIN-SULBACTAM 3 GM in SODIUM CHLORIDE 0.9% 100 ML IVPB SCH ×4 (00:23→17:14)
[2020-08-01] MEDS: FUROSEMIDE 10 MG/ML 4 ML VIAL IV SCH ×3 (00:24→17:14)
[2020-08-01] MEDS: LORazepam 1 MG TAB PO PRN (03:52)
[2020-08-01 09:33] LABS: African American GFR (CKD) 75 (>60 ml/min/1.73 sqM); Anion Gap 4 mmol/L; Blood Urea Nitrogen 26 mg/dL (9-20); Calcium 8.2 mg/dL (8.4-10.2); Carbon Dioxide 35 mmol/L (22-30); Chloride 101 mmol/L (98-107); Glucose 86 mg/dL (74-99); Non-African American GFR(CKD) 65 (>60 ml/min/1.73 sqM); Potassium 3.6 mmol/L (3.5-5.1); Sodium 140 mmol/L (137-145)
[2020-08-01] MEDS: PANTOPRAZOLE 40 MG TABLET PO SCH (10:06)
[2020-08-01] MEDS: carvediloL 6.25 MG TAB PO SCH ×2 (10:06→17:14)
[2020-08-01] MEDS: THIAMINE 100 MG TAB PO SCH (10:06)
[2020-08-01] MEDS: HEPARIN SODIUM,PORCINE 5,000 UNIT/ML 1 ML VIAL SQ SCH ×2 (10:07→20:09)
[2020-08-01] MEDS: CYANOCOBALAMIN 500 MCG TAB PO SCH (10:07)
[2020-08-01] MEDS: LOSARTAN 50 MG TAB PO SCH (10:07)
[2020-08-01] MEDS: POTASSIUM CHLORIDE ER 20 MEQ TAB.ER PO SCH (10:08)
[2020-08-01] MEDS: MULTIVITAMINS, THERA 1 EACH TAB PO SCH (10:08)
[2020-08-01] MEDS: FOLIC ACID 1 MG TAB PO SCH (10:08)
[2020-08-01 11:17] VITALS: BMI 36.4
[2020-08-01 11:31] LABS: Basophils # (A) 0.02 X 10*3/uL (0.00-0.10); Basophils % (A) 0.3 %; Eosinophils # (A) 0.11 X 10*3/uL (0.04-0.35); Eosinophils % (A) 1.4 %; HCT 37.1 % (39.6-50.0); HGB 11.2 g/dL (13.0-17.0); Lymphocytes % (A) 17.1 %; MCH 27.5 pg (27.0-32.0); MCHC 30.2 g/dL (32.0-37.0); MCV 90.9 fL (80.0-97.0); Mean Platelet Volume 13.7 fL (9.5-12.2); Monocytes # (A) 0.75 X 10*3/uL (0.20-1.00); Monocytes % (A) 9.8 %; Neutrophils # (A) 5.42 X 10*3/uL (1.80-7.70); Neutrophils % (A) 71.1 %; Platelet Count 93 X 10*3/uL (140-440); RBC 4.08 X 10*6/uL (4.40-5.60); RDW 15.9 % (11.5-14.5); WBC 7.62 X 10*3/uL (4.50-10.00)
[2020-08-01] MEDS ORDERED: MINERAL OIL-WHITE PETROLATUM 120 GM JAR TOPICAL PRN (11:51)
[2020-08-01] MEDS ORDERED: ASPIRIN 325 MG TAB PO SCH (12:00)
--- NOTE | 2020-08-01 12:32 | P.CRDCN ---
History of Present Illness Consult date: 08/01/20 History of present illness: HISTORY OF PRESENT ILLNESS: This is a 89-year-old male with a past medical history significant for hypertension, hyperlipidemia, congestive heart failure, and diabetes mellitus. Patient is unsure if he follows with a abrasive sawyer. We have been asked to see the patient in consultation for congestive heart failure. Patient examined at the bedside. Patient is somewhat of a poor historian. However he is alert and oriented. Patient states he has been having shortness of breath over the last week. He also reports increased lower extremity edema and scrotal edema. He denies chest pain or pressure. Patient was started on IV Lasix in the emergency room. Patient reports his shortness of breath has improved and also his lower extremity edema has improved. Patient has a documented history of CAD, however upon further questioning of the patient he states he has never had a heart attack and denies having any previous stent placements. EKG reveals sinus mechanism with PVCs. Right bundle branch block. Left a nterior fascicular block. Bifascicular block. Chest xray pulmonary venous hypertension and interstitial edema. Ultrasound scrotum: Moderate bilateral hydrocele Laboratory data: WBC 7.62, Hemoglobin 11.2, Platelet count 93, Sodium 140, Potassium 3.6, BUN 26, Creatinine 1.04, Troponin negative 1, BNP 15,000 Current home cardiac medications include losartan 50 mg daily, Lasix 40 mg twice a day, carvedilol 6.25 g twice a day, atorvastatin 40 mg daily, and aspirin 81 mg daily. Most recent echocardiogram obtained in September 2019 reveals ejection fraction 35- 40%, moderate aortic stenosis, [id number] mitral regurgitation, and moderate tricuspid regurgitation. REVIEW OF SYSTEMS: At the time of my exam: CONSTITUTIONAL: Denies fever or chills. HEENT: Denies blurred vision, vision changes, or eye pain. Denies hemoptysis CARDIOVASCULAR: Denies chest pain. Denies orthopnea. Denies PND. Denies palpitations RESPIRATORY: Denies shortness of breath. GASTROINTESTINAL: Denies abdominal pain. Denies nausea or vomiting. HEMATOLOGIC: Denies bleeding disorders. GENITOURINARY: Denies any blood in urine. SKIN: Denies pruitis. Denies rash. PHYSICAL EXAM: VITAL SIGNS: Reviewed. GENERAL: Well-developed in no acute distress. Appears unkept with poor hygiene HEENT: Head is normocephalic. Pupils are equal, round. Sclerae anicteric. Mucous membranes of the mouth are moist. Neck supple. No JVD or thyromegaly LUNGS: Respirations even and unlabored. Lungs diminished with bibasilar rales HEART: Regular rate and rhythm. S1 and S2 heard. Systolic murmur. ABDOMEN: Soft. Nondistended. Nontender. EXTREMITIES: Normal range of motion. No clubbing or cyanosis. Peripheral pulses intact. Bilateral lower extremity edema as well as scrotal edema NEUROLOGIC: Awake and alert. Oriented x 3. ASSESSMENT: Acute exacerbation of systolic congestive heart failure, EF 35-40%, BNP 15,000 Scrotal edema, ultrasound revealing moderate bilateral hydroceles Valvular heart disease: Most recent echo reveals moderate aortic stenosis, mi [id number] mitral regurgitation, and moderate tricuspid regurgitation Hypertension Hyperlipidemia Diabetes mellitus Obesity: BMI 36.4 PLAN: Resume home cardiac medications Obtain 2-D echo to assess cardiac structure and function Continue IV Lasix Monitor kidney function Daily weight Accurate I&O Further recommendations pending patient course Nurse practitioner note has been reviewed by physician. Signing provider agrees with the documented findings, assessment, and plan of care. Past Medical History Past Medical History: Coronary Artery Disease (CAD), Heart Failure, Diabetes Mellitus, Hyperlipidemia, Hypertension, Osteoarthritis (OA) Additional Past Medical History / Comment(s): obesity valley fever History of Any Multi-Drug Resistant Organisms: None Reported Additional Past Surgical History / Comment(s): lung surg Past Anesthesia/Blood Transfusion Reactions: No Reported Reaction Past Psychological History: No Psychological Hx Reported Smoking Status: Former smoker Past Alcohol Use History: Rare Past Drug Use History: None Reported - Past Family History Father Family Medical History: Myocardial Infarction (CT) Additional Family Medical History / Comment(s): emphysema Medications and Allergies Home Medications Medication Instructions Recorded Confirmed Type Aspirin 81 mg PO DAILY #100 chew 10/23/19 07/31/20 Rx Furosemide [Lasix] 40 mg PO BID@0900,1600 #60 tab 10/23/19 07/31/20 Rx Losartan [Cozaar] 50 mg PO DAILY #30 tab 10/23/19 07/31/20 Rx Acetaminophen [Tylenol Arthritis] 650 mg PO Q6H PRN 07/31/20 07/31/20 History Atorvastatin [Lipitor] 40 mg PO HS 07/31/20 07/31/20 History Carvedilol [Coreg] 6.25 mg PO BID 07/31/20 07/31/20 History Cyanocobalamin (Vitamin B-12) 1,000 mcg PO DAILY 07/31/20 07/31/20 History [Vitamin B-12] Potassium Chloride ER [K-Dur 20] 20 meq PO DAILY 07/31/20 07/31/20 History Allergies Allergy/AdvReac Type Severity Reaction Status Date / Time No Known Allergies Allergy Verified 07/31/20 16:23 Physical Exam Vitals: Vital Signs Temp Pulse Pulse Resp BP BP Pulse Ox 08/01/20 08:00 75 18 08/01/20 02:00 97.8 F 75 18 91/46 91 L 07/31/20 20:07 98.5 F 66 20 99/81 96 07/31/20 20:00 97.9 F 70 18 144/78 96 07/31/20 18:32 69 18 117/60 93 L 07/31/20 16:52 69 18 106/87 94 L 07/31/20 15:51 68 18 99/70 94 L 07/31/20 12:50 97.8 F 87 18 147/97 94 L Intake and Output 07/31/20 08/01/20 08/01/20 22:59 06:59 14:59 Intake Total 680 Output Total 450 Balance 230 Intake: Intake, IV Titration 200 Amount Ampicillin-Sulbactam 3 gm 200 In Sodium Chloride 0.9% 100 ml @ 200 mls/hr IVPB Q6HR [facility] Rx#:[id number] Oral 480 Output: Urine 450 Other: # Voids 700 # Bowel Movements 1 Weight 115.212 kg 115.212 kg Results 08/01/20 07:22 08/01/20 07:22 Cardiac Enzymes 07/31/20 07/31/20 Range/Units 16:38 16:38 AST 27 (17-59) U/L Troponin I 0.017 (0.000-0.034) ng/mL Coagulation 07/31/20 Range/Units 16:38 PT 11.2 (9.0-12.0) sec APTT 25.4 (22.0-30.0) sec CBC 07/31/20 08/01/20 Range/Units 16:38 07:22 WBC 7.9 7.62 (3.8-10.6) k/uL RBC 4.89 4.08 L (4.30-5.90) m/uL Hgb 14.0 11.2 L (13.0-17.5) gm/dL Hct 42.9 37.1 L (39.0-53.0) % Plt Count 98 L 93 L (150-450) k/uL Comprehensive Metabolic Panel 07/31/20 08/01/20 Range/Units 16:38 07:22 Sodium 143 140 (137-145) mmol/L Potassium 4.2 3.6 (3.5-5.1) mmol/L Chloride 103 101 (98-107) mmol/L Carbon Dioxide 29 35 H (22-30) mmol/L BUN 26 H 26 H (9-20) mg/dL Creatinine 0.92 1.04 (0.66-1.25) mg/dL Glucose 94 86 (74-99) mg/dL Calcium 8.8 8.2 L (8.4-10.2) mg/dL AST 27 (17-59) U/L ALT 22 (4-49) U/L Alkaline Phosphatase 118 (38-126) U/L Total Protein 7.1 (6.3-8.2) g/dL Albumin 3.9 (3.5-5.0) g/dL Current Medications Generic Name Dose Route Start Last Admin Trade Name Freq PRN Reason Stop Dose Admin Acetaminophen 500 mg 07/31/20 18:03 Acetaminophen Tab 500 Mg Tab PO Q6HR PRN Fever and/ or Pain Hydrocodone Bitart/Acetaminophen 1 each 07/31/20 18:03 Hydrocodone/Apap 5-325mg 1 Each Tab PO Q6HR PRN Pain Aspirin 81 mg 08/02/20 09:00 Aspirin 81 Mg PO DAILY ADRIAN Atorvastatin Calcium 40 mg 07/31/20 21:00 07/31/20 22:14 Atorvastatin 40 Mg Tab PO 40 mg HS ADRIAN Administration Carvedilol 6.25 mg 07/31/20 18:00 08/01/20 10:06 Carvedilol 6.25 Mg Tab PO 6.25 mg AC-BID ADRIAN Administration Cyanocobalamin 1,000 mcg 08/01/20 09:00 08/01/20 10:07 Cyanocobalamin 500 Mcg Tab PO 1,000 mcg DAILY ADRIAN Administration Folic Acid 1 mg 08/01/20 12:00 08/01/20 10:08 Folic Acid 1 Mg Tab PO 1 mg DAILY@1200 ADRIAN Administration Furosemide 40 mg 07/31/20 17:00 08/01/20 10:07 Furosemide 10 Mg/Ml 4 Ml Vial IV 40 mg Q8H ADRIAN Administration Heparin Sodium (Porcine) 5,000 unit 07/31/20 21:00 08/01/20 10:07 Heparin Sodium,Porcine 5,000 Unit/Ml 1 Ml Vial SQ 5,000 unit Q12HR ADRIAN Administration Sodium Chloride 1,000 mls @ 20 mls/hr 07/31/20 16:15 07/31/20 16:47 Saline 0.9% IV 20 mls/hr .Q24H ADRIAN Administration Ampicillin Sodium/Sulbactam 100 mls @ 200 mls/hr 07/31/20 18:15 08/01/20 05:10 Sodium 3 gm/ Sodium Chloride IVPB 200 mls/hr Q6HR ADRIAN Administration Lorazepam 0.5 mg 07/31/20 18:03 08/01/20 03:52 Lorazepam 1 Mg Tab PO 0.5 mg Q8HR PRN Administration Anxiety Losartan Potassium 50 mg 08/01/20 09:00 08/01/20 10:07 Losartan 50 Mg Tab PO 50 mg DAILY ADRIAN Administration Multi-Ingred Cream/Lotion/Oil/Oint 1 applic 08/01/20 11:51 Mineral Oil-White Petrolatum 120 Gm Jar TOPICAL BID PRN Dry Skin Multivitamins 1 each 08/01/20 12:00 08/01/20 10:08 Multivitamins, Thera 1 Each Tab PO 1 each DAILY@1200 ADRIAN Administration Pantoprazole Sodium 40 mg 08/01/20 07:30 08/01/20 10:06 Pantoprazole 40 Mg Tablet PO 40 mg AC-[id number] ADRIAN Administration Potassium Chloride 20 meq 08/01/20 09:00 08/01/20 10:08 Potassium Chloride Er 20 Meq Tab.Er PO 20 meq DAILY ADRIAN Administration Temazepam 15 mg 07/31/20 18:03 Temazepam 15 Mg Cap PO HS PRN Insomnia Thiamine HCl 100 mg 08/01/20 12:00 08/01/20 10:06 Thiamine 100 Mg Tab PO 100 mg DAILY@1200 ADRIAN Administration Intake and Output 07/31/20 08/01/20 08/01/20 22:59 06:59 14:59 Intake Total 680 Output Total 450 Balance 230 Intake: Intake, IV Titration 200 Amount Ampicillin-Sulbactam 3 gm 200 In Sodium Chloride 0.9% 100 ml @ 200 mls/hr IVPB Q6HR [facility] Rx#:[id number] Oral 480 Output: Urine 450 Other: # Voids 700 # Bowel Movements 1 Weight 115.212 kg 115.212 kg Patient Weight 08/02/20 06:59 Weight 115.212 kg 08/01/20 07:22 08/01/20 07:22
--- NOTE | 2020-08-01 16:42 | PN ---
PROGRESS NOTE DATE OF SERVICE: 08/01/2020 This is an 89-year-old gentleman who was admitted with significant scrotal swelling and cellulitis, on broad-spectrum IV antibiotics. The patient also probably had some features of CHF also. Cardiology has seen the patient and recommended to continue with Lasix at this time. A 2D echo with Doppler was ordered. No chest pain. No palpitations. No fever. PHYSICAL EXAMINATION: GENERAL: Patient is alert and oriented times three. VITAL SIGNS: Pulse 80, blood pressure 101/64, respirations 16, temperature 98, pulse ox 98% on room air. HEENT: Conjunctivae normal. Oral mucosa moist. NECK: No jugular venous distention. No carotid bruits. No lymph node enlargement. RESPIRATORY: Breath sounds diminished at the bases. Scattered rhonchi. HEART: S1 and S2, muffled. ABDOMEN: Soft, obese. EXTREMITIES: Bilateral leg edema. : Examination of the scrotum shows significant swelling and erythema present. LABS: WBC 7.2, hemoglobin 11.2, platelets are 93, creatinine noted. COVID-19 is negative. ASSESSMENT: 1. Bilateral scrotal cellulitis with hydroceles and failure of outpatient treatment. 2. Possible congestive heart failure acute exacerbation with acute on chronic systolic dysfunction ejection fraction 35-40%. 3. Elevated bilirubin. 4. Thrombocytopenia. 5. Increased BUN. 6. History of coronary artery disease. 7. Diabetes mellitus type 2. 8. Hypertension. 9. Hyperlipidemia. 10.History of degenerative joint disease. 11.History of valley fever. 12.Obesity with body mass index 36.4. RECOMMENDATIONS AND DISCUSSION: Recommend to continue current management, continue with monitoring and symptomatic treatment. Continue with IV Lasix. Monitor fluid/electrolyte balance closely. Continue with empiric antibiotics. Otherwise infectious disease evaluation and neurology evaluation also has been sought. Further recommendations to follow. MMODL / IJN: [id number] /
[2020-08-01] MEDS: SODIUM CHLORIDE 0.9% 1,000 ML IV SCH (17:14)
[2020-08-01] MEDS: ATORVASTATIN 40 MG TAB PO SCH (20:09)
--- NOTE | 2020-08-01 21:48 | CONS ---
CONSULTATION DATE OF SERVICE: 08/01/2020 REASON FOR CONSULTATION: Scrotal cellulitis. HISTORY OF PRESENT ILLNESS: The patient is an 89-year-old male presenting to the ER with significant scrotal edema. The patient mentioned his symptoms started about 2 weeks ago after he got his first dose of the Og vaccine. The patient did have a dull, aching pain to the scrotal area. Most of it is tension. Stretch, intensity 3 to 4 out of 10 and no radiation. The patient currently does not have any open wound or any drainage. No blister formation. Denies having any difficulty urination. Denies having any fever or chills. Did have lower extremity swelling and some shortness of breath. With these symptoms, the patient has been evaluated by the ER physician. On arrival to the ER, the patient has been afebrile. The patient was not tachycardic. He did have a normal white count with no left shift. Kidney function was normal. Urine is normal. Og PCR was negative. The patient did have a scrotal ultrasound which did show moderate bilateral hydroceles and severe erythematous thickening of the scrotum, correlate with severe third spacing cellulitis. No evidence of torsion or epididymo-orchitis. The patient did have chest x-ray shows correlate for pulmonary venous hypertension and interstitial edema. Patient currently being treated with Unasyn. Infectious Disease was consulted this evening for further management of antibiotic therapy. The patient did mention some improvement in his symptoms since being in the hospital and started on IV Lasix. REVIEW OF SYSTEMS: Positive points have been mentioned in HPI. Rest of systems are negative. PAST MEDICAL HISTORY: Coronary artery disease, heart failure, diabetes mellitus, hyperlipidemia, hypertension, osteoarthritis. PAST SURGICAL HISTORY: No major surgeries. SOCIAL HISTORY: Remote history of smoking. No drinking or drug use. FAMILY HISTORY: Father history of [place]. ALLERGIES: No known drug allergies. MEDICATIONS: The patient is currently on Tylenol, [place], Unasyn 3 grams q.6 hours, aspirin, Lipitor, Coreg, vitamin B12, folic acid, Lasix, heparin, Cozaar, Theragran, Protonix, K-Dur, Restoril. PHYSICAL EXAMINATION: Blood pressure 101/61, pulse of 80, temperature 98, he is 98% on room air. General description: The patient is an elderly male lying in bed in no distress. No tachypnea or accessory muscles of respiration use. HEENT: Shows pallor. No scleral icterus. Oral mucous membranes dry. NECK: Trachea central. No thyromegaly. LUNGS: Unlabored breathing with decreased breath sounds at the bases. No wheeze. HEART: S1, S2. Regular rate and rhythm. ABDOMEN: Soft, no tenderness. No guarding. No rigidity. EXTREMITIES about 2+ edema feet. Scrotal area did show significant swelling, redness, slightly warm, no blister, no black discoloration. No drainage. NEUROLOGICAL: Patient is awake, alert, oriented times three. Mood and affect normal. LABS: Hemoglobin 11.1, white count 7.6 with a BUN of 26, creatinine 1.04. Electrolytes normal. Liver enzymes are normal. Urine is negative. Blood culture so far negative. DIAGNOSTIC IMPRESSION AND PLAN: Patient with significant scrotal swelling, more likely from third-spacing and redness more likely from significant swelling, scrotal cellulitis, infection less likely in this patient with no fever or elevated white count but not entirely excluded. I will need to cover for the enteric Gram-negative and gram-positive skin ran. PLAN: 1. Unasyn 3 grams q.6 hours to continue. 2. May benefit from urology evaluation. 3. We will check a CRP and CBC. 4. We will follow on his clinical condition and culture to further adjust medication if needed. Thank you for this consultation. Will follow this patient along with you. MMODL / IJN: [id number] /
[2020-08-02] MEDS: TEMAZEPAM 15 MG CAP PO PRN ×2 (00:07→21:47)
[2020-08-02] MEDS: AMPICILLIN-SULBACTAM 3 GM in SODIUM CHLORIDE 0.9% 100 ML IVPB SCH ×5 (00:08→23:15)
[2020-08-02] MEDS: FUROSEMIDE 10 MG/ML 4 ML VIAL IV SCH ×3 (00:08→17:21)
[2020-08-02] MEDS: LORazepam 1 MG TAB PO PRN ×2 (02:39→17:24)
[2020-08-02] MEDS: ASPIRIN 81 MG PO SCH (09:07)
[2020-08-02] MEDS: LOSARTAN 50 MG TAB PO SCH (09:07)
[2020-08-02] MEDS: CYANOCOBALAMIN 500 MCG TAB PO SCH (09:07)
[2020-08-02] MEDS: POTASSIUM CHLORIDE ER 20 MEQ TAB.ER PO SCH (09:07)
[2020-08-02] MEDS: HEPARIN SODIUM,PORCINE 5,000 UNIT/ML 1 ML VIAL SQ SCH ×2 (09:08→21:47)
[2020-08-02] MEDS: carvediloL 6.25 MG TAB PO SCH ×2 (09:08→17:21)
[2020-08-02] MEDS: PANTOPRAZOLE 40 MG TABLET PO SCH (09:08)
[2020-08-02 11:37] LABS: African American GFR (CKD) 69 (>60 ml/min/1.73 sqM); Anion Gap 9 mmol/L; Blood Urea Nitrogen 31 mg/dL (9-20); C Reactive Protein 12.5 mg/L (<10.0); Calcium 8.3 mg/dL (8.4-10.2); Carbon Dioxide 29 mmol/L (22-30); Chloride 101 mmol/L (98-107); Glucose 114 mg/dL (74-99); Non-African American GFR(CKD) 60 (>60 ml/min/1.73 sqM); Potassium 3.9 mmol/L (3.5-5.1); Sodium 139 mmol/L (137-145)
[2020-08-02] MEDS: FOLIC ACID 1 MG TAB PO SCH (12:49)
[2020-08-02] MEDS: MULTIVITAMINS, THERA 1 EACH TAB PO SCH (12:49)
[2020-08-02] MEDS: THIAMINE 100 MG TAB PO SCH (12:49)
--- NOTE | 2020-08-02 17:13 | PN ---
PROGRESS NOTE DATE OF SERVICE: 08/02/2020 This 89-year-old gentleman who was admitted with bilateral scrotal cellulitis and hydrocele is being closely monitored. The patient started on broad spectrum IV antibiotics at this time. Dr. Klein has seen the patient and recommend IV Unasyn and urology evaluation possibly. Otherwise, the patient is complaining of severe pain. Past medical history reviewed. REVIEW OF SYSTEMS: Cardiovascular System: No angina or palpitations. Respiration: As mentioned earlier. GI as mentioned earlier. as mentioned earlier. NERVOUS SYSTEM: No numbness or weakness. CURRENT MEDICATIONS: Reviewed and include: [place], IV Unasyn. Lipitor, Coreg, folic acid and Lasix. Doses are reviewed. PHYSICAL EXAMINATION: Alert and oriented times three. Pulse 63, blood pressure 87/54, respirations 16, temperature 98 degrees, pulse ox 94% on room air. HEENT: Conjunctivae normal. NECK: No JVD. CARDIOVASCULAR: S1, S2 muffled. RESPIRATORY SYSTEM: Breath sounds diminished at the bases. A few scattered rhonchi. ABDOMEN: Soft, obese, nontender. LEGS: Significant scrotal cellulitis and scrotal edema. NERVOUS SYSTEM: No focal deficits. LABS: Sodium 130, potassium noted, BUN is 31, creatinine is 1.11 and CRP is 12.5. ASSESSMENT: 1. Bilateral scrotal cellulitis and hydrocele with failure of outpatient treatment. 2. Possible congestive heart failure acute exacerbation with acute on chronic systolic dysfunction, ejection fraction 35-40 percent. 3. Elevated bilirubin. 4. Thrombocytopenia. 5. Elevated CRP. 6. Increased BUN. 7. History of coronary artery disease. 8. Diabetes mellitus type 2. 9. Hypertension. 10.Hyperlipidemia. 11.History of degenerative joint disease. 12.History of valley fever. 13.Obesity with body mass of 36.4. RECOMMENDATIONS AND DISCUSSION: Recommend to continue current management and symptomatic treatment. Continue with Lasix. Multiple consultants including Cardiology and Infectious Disease following the patient closely. The cultures are negative so far. The prognosis guarded. I would recommend repeat labs. Further recommendations to follow. The patient has also had some relative hypotension. I would also recommend decrease the dose of losartan to 12.5 mg. Further recommendation to follow. MMODL / IJN: [id number] /
--- NOTE | 2020-08-02 17:34 | ECHOF ---
Referral Reason:LV function MEASUREMENTS -------- HEIGHT: 177.8 cm WEIGHT: 115.2 kg BP: 110/61 RVIDd: 4.6 cm (< 3.3) IVSd: 1.7 cm (0.6 - 1.1) LVIDd: 5.7 cm (3.9 - 5.3) LVPWd: 2.0 cm (0.6 - 1.1) IVSs: 1.9 cm LVIDs: 4.8 cm LVPWs: 1.7 cm Ao Diam: 3.4 cm (2.0 - 3.7) AV Cusp: 1.1 cm (1.5 - 2.6) LA Diam: 5.4 cm (2.7 - 3.8) MV EXCURSION: 23.818 mm (> 18.000) MV EF SLOPE: 147 mm/s (70 - 150) EPSS: 1.1 cm AV maxP.09 mmHg AV maxP.09 mmHg AV meanP.87 mmHg RAP: 5.00 mmHg RVSP: 28.63 mmHg FINDINGS -------- This was a technically difficult study with suboptimal views. Pt. not compliant. The left ventricle is mildly dilated. There is severe concentric left ventricular hypertrophy. Ov erall left ventricular systolic function is moderate-severely impaired with, an EF between 30 - 35 %. The right ventricle is severely enlarged. The left atrium was not well visualized. The right atrium was not well visualized. xx ml of Lumason was utilized for enhancement of images. Peak/mean gradient across the Aortic Valve is 21.09mmHg / 11.87mmHg. There is moderate to severe ca lcification and sclerosis of the aortic valve. Doppler velocities consistent with mild to moderate a ortic stenosis however degree of aortic stenosis may be underestimated due to low EF. The mitral valve was not well visualized. The tricuspid valve was not well visualized. Mild tricuspid regurgitation present. There is no ev idence of pulmonary hypertension. The right ventricular systolic pressure, as measured by Doppler, is 28.63mmHg. There is no pulmonic regurgitation present. The aortic root size is normal. IVC Not well visulized. There is no pericardial effusion. CONCLUSIONS -------- 1. The left ventricle is mildly dilated. 2. There is severe concentric left ventricular hypertrophy. 3. Overall left ventricular systolic function is moderate-severely impaired with, an EF between 30 - 35 %. 4. The right ventricle is severely enlarged. 5. Peak/mean gradient across the Aortic Valve is 21.09mmHg / 11.87mmHg. 6. There is moderate to severe calcification and sclerosis of the aortic valve. Doppler velocities c onsistent with mild to moderate aortic stenosis however degree of aortic stenosis may be underestimat ed due to low EF. 7. Mild tricuspid regurgitation present. OPERATIONS ARCHITECT: Bryanna Seals RDCS
[2020-08-02] MEDS ORDERED: SODIUM CHLORIDE 0.9% 500 ML 500 ML IV ONE (17:36)
[2020-08-02] MEDS: SODIUM CHLORIDE 0.9% 1,000 ML IV SCH (17:44)
[2020-08-02 18:21] LABS: Basophils # (A) 0.02 X 10*3/uL (0.00-0.10); Basophils % (A) 0.3 %; Eosinophils # (A) 0.12 X 10*3/uL (0.04-0.35); Eosinophils % (A) 1.7 %; HCT 39.5 % (39.6-50.0); Lymphocytes # (A) 1.23 X 10*3/uL (0.90-5.00); MCHC 30.4 g/dL (32.0-37.0); MCV 92.1 fL (80.0-97.0); Monocytes # (A) 0.73 X 10*3/uL (0.20-1.00); Monocytes % (A) 10.1 %; Neutrophils % (A) 70.6 %; Platelet Count 93 X 10*3/uL (140-440); RBC 4.29 X 10*6/uL (4.40-5.60); RDW 15.9 % (11.5-14.5); WBC 7.22 X 10*3/uL (4.50-10.00)
--- NOTE | 2020-08-02 20:30 | P.PN ---
Subjective HISTORY OF PRESENT ILLNESS: This is a 89-year-old male with a past medical history significant for hypertension, hyperlipidemia, congestive heart failure, and diabetes mellitus. 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 We have been asked to see the patient in consultation for congestive heart failure. Patient examined at the bedside. Patient is somewhat of a poor historian. However he is alert and oriented. Patient states he has been having shortness of breath over the last week. He also reports increased lower extremity edema and scrotal edema. He denies chest pain or pressure. Patient was started on IV Lasix in the emergency room. Patient reports his shortness of breath has improved and also his lower extremity edema has improved. Patient has a documented history of CAD, however upon further questioning of the patient he states he has never had a heart attack and denies having any previous stent placements. 08/02/20 Patient seen and examined. Losartan decreased to 12.5mg daily given low BP with systolics in the 80's. Remains on Lasix tid. Unclear of I's and O's. Echo with EF 30-35%, at least mild to moderate . REVIEW OF SYSTEMS: At the time of my exam: CONSTITUTIONAL: Denies fever or chills. HEENT: Denies blurred vision, vision changes, or eye pain. Denies hemoptysis CARDIOVASCULAR: Denies chest pain. Denies orthopnea. Denies PND. Denies palpitations RESPIRATORY: Denies shortness of breath. GASTROINTESTINAL: Denies abdominal pain. Denies nausea or vomiting. HEMATOLOGIC: Denies bleeding disorders. GENITOURINARY: Denies any blood in urine. SKIN: Denies pruitis. Denies rash. PHYSICAL EXAM: VITAL SIGNS: Reviewed. GENERAL: Well-developed in no acute distress. Appears unkept with poor hygiene HEENT: Head is normocephalic. Pupils are equal, round. Sclerae anicteric. Mucous membranes of the mouth are moist. Neck supple. No JVD or thyromegaly LUNGS: Respirations even and unlabored. Lungs diminished with bibasilar rales HEART: Regular rate and rhythm. S1 and S2 heard. Systolic murmur. ABDOMEN: Soft. Nondistended. Nontender. EXTREMITIES: Normal range of motion. No clubbing or cyanosis. Peripheral pulses intact. Bilateral lower extremity edema as well as scrotal edema NEUROLOGIC: Awake and alert. Oriented x 3. ASSESSMENT: Acute exacerbation of systolic congestive heart failure, EF 35-40%, BNP 15,000 Scrotal edema, ultrasound revealing moderate bilateral hydroceles Valvular heart disease: Most recent echo reveals moderate aortic stenosis, [id number] mitral regurgitation, and moderate tricuspid regurgitation Hypertension Hyperlipidemia Diabetes mellitus Obesity: BMI 36.4 Hypotension PLAN: Agree with decreasing Losartan for now Continue IV Lasix for now however if BP's remain low, may consider decreasing Monitor kidney function Daily weight Accurate I&O Objective - Vital Signs Vital signs: Vital Signs Temp 97.9 F 08/02/20 20:03 Pulse 72 08/02/20 20:03 Resp 18 08/02/20 20:03 BP 117/75 08/02/20 20:03 Pulse Ox 92 L 08/02/20 20:03 Intake & Output 08/02/20 08/02/20 08/03/20 06:59 18:59 06:59 Weight 127.5 kg Other: Voiding Method Urinal - Labs CBC & Chem 7: 08/02/20 08:42 08/02/20 08:42 Labs: Abnormal Lab Results - Last 24 Hours (Table) 08/02/20 08/02/20 Range/Units 08:42 08:42 RBC 4.29 L (4.40-5.60) X 10*6/uL Hgb 12.0 L (13.0-17.0) g/dL Hct 39.5 L (39.6-50.0) % MCHC 30.4 L (32.0-37.0) g/dL RDW 15.9 H (11.5-14.5) % Plt Count 93 L (140-440) X 10*3/uL Plt Count Comment DECREASED A MPV 14.0 H (9.5-12.2) fL BUN 31 H (9-20) mg/dL Glucose 114 H (74-99) mg/dL Calcium 8.3 L (8.4-10.2) mg/dL C-Reactive Protein 12.5 H (<10.0) mg/L Microbiology - Last 24 Hours (Table) 07/31/20 16:36 Blood Culture - Preliminary Blood No Growth after 48 hours 07/31/20 16:14 Blood Culture - Preliminary Blood No Growth after 48 hours
[2020-08-02] MEDS: ATORVASTATIN 40 MG TAB PO SCH (21:47)
[2020-08-03] MEDS: FUROSEMIDE 10 MG/ML 4 ML VIAL IV SCH ×3 (00:12→18:03)
[2020-08-03] MEDS: LORazepam 1 MG TAB PO PRN (01:23)
[2020-08-03] MEDS: AMPICILLIN-SULBACTAM 3 GM in SODIUM CHLORIDE 0.9% 100 ML IVPB SCH ×3 (05:15→17:51)
[2020-08-03] MEDS: ASPIRIN 81 MG PO SCH (07:54)
[2020-08-03] MEDS: CYANOCOBALAMIN 500 MCG TAB PO SCH (07:54)
[2020-08-03] MEDS: THIAMINE 100 MG TAB PO SCH (07:54)
[2020-08-03] MEDS: PANTOPRAZOLE 40 MG TABLET PO SCH (07:54)
[2020-08-03] MEDS: carvediloL 6.25 MG TAB PO SCH ×2 (07:55→17:51)
[2020-08-03] MEDS: FOLIC ACID 1 MG TAB PO SCH (07:55)
[2020-08-03] MEDS: MULTIVITAMINS, THERA 1 EACH TAB PO SCH (07:55)
[2020-08-03] MEDS: POTASSIUM CHLORIDE ER 20 MEQ TAB.ER PO SCH (07:55)
[2020-08-03] MEDS: HEPARIN SODIUM,PORCINE 5,000 UNIT/ML 1 ML VIAL SQ SCH ×2 (07:55→21:28)
[2020-08-03] MEDS ORDERED: LOSARTAN 25 MG TAB PO SCH (09:00)
[2020-08-03 09:36] LABS: African American GFR (CKD) 62.6 (60.0-200.0); Anion Gap 7.3 mmol/L (4.00-12.00); Calcium 8.4 mg/dL (8.7-10.3); Carbon Dioxide 34.7 mmol/L (21.6-31.8); Potassium 3.7 mmol/L (3.5-5.5)
[2020-08-03 10:40] LABS: Basophils # (A) 0.02 X 10*3/uL (0.00-0.10); Basophils % (A) 0.3 %; Eosinophils # (A) 0.18 X 10*3/uL (0.04-0.35); Eosinophils % (A) 2.3 %; HCT 38.4 % (39.6-50.0); HGB 11.6 g/dL (13.0-17.0); Lymphocytes # (A) 1.39 X 10*3/uL (0.90-5.00); Lymphocytes % (A) 17.9 %; MCH 27.4 pg (27.0-32.0); MCHC 30.2 g/dL (32.0-37.0); MCV 90.8 fL (80.0-97.0); Monocytes # (A) 0.73 X 10*3/uL (0.20-1.00); Monocytes % (A) 9.4 %; Neutrophils # (A) 5.41 X 10*3/uL (1.80-7.70); Neutrophils % (A) 69.8 %; Platelet Count 91 X 10*3/uL (140-440); RBC 4.23 X 10*6/uL (4.40-5.60); RDW 15.8 % (11.5-14.5); WBC 7.75 X 10*3/uL (4.50-10.00)
[2020-08-03] MEDS ORDERED: SODIUM CHLORIDE 0.9% 500 ML 500 ML IV ONE (11:18)
[2020-08-03] MEDS: SODIUM CHLORIDE 0.9% 1,000 ML IV SCH (17:51)
--- NOTE | 2020-08-03 18:39 | PN ---
PROGRESS NOTE DATE OF SERVICE: 08/03/2020. This 89-year-old gentleman who was admitted with bilateral scrotal cellulitis and hydrocele is being closely monitored. Patient is on broad-spectrum IV antibiotics. The cultures are negative so far. No chest pain. No palpitations. Complaining of weakness also. 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 The patient is receiving multiple medications including Lasix in the morning. PAST MEDICAL HISTORY: Reviewed. REVIEW OF SYSTEMS: CARDIOVASCULAR system: No angina. RESPIRATORY: As mentioned earlier. GI: As mentioned earlier. : No dysuria. NERVOUS SYSTEM: No numbness or weakness. CURRENT MEDS: Reviewed and include: Tylenol. [place]. Unasyn. Lipitor, Coreg, other medications noted. PHYSICAL EXAMINATION: Patient is alert and oriented times three. Pulse 58, blood pressure 88/47, respiration 20, temperature 97.2, pulse ox 94% on room air. HEENT: Conjunctivae normal. NECK: No JVD. CARDIOVASCULAR: S1, S2 muffled. RESPIRATORY SYSTEM: Breath sounds diminished at the bases. A few scattered rhonchi. ABDOMEN: Soft, obese. Cellulitis and scrotal swelling was present. LABS: Hemoglobin 11.6, white count 7.75 and sodium is 140, potassium 3.7, and BUN and creatinine is 25. C-reactive protein 12.5. Cortisol is 10. ASSESSMENT: 1. Bilateral scrotal cellulitis and hydrocele with failure of outpatient treatment with possible sepsis, present on admission. 2. Possible congestive heart failure acute exacerbation with acute on chronic systolic dysfunction, ejection fraction 35 to 40%. 3. Relative hypotension. 4. Elevated bilirubin. 5. Thrombocytopenia. 6. Elevated CRP. 7. Increased BUN. 8. History of coronary artery disease. 9. Diabetes mellitus type 2. 10.Hypertension. 11.Hyperlipidemia. 12.History of degenerative joint disease. 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 14.Obesity with body mass index of 36.4. RECOMMENDATIONS AND DISCUSSION: I recommend to continue current medications, monitoring, and symptomatic treatment. I would recommend hold Coreg and reduce dose of Lasix. Otherwise, guarded prognosis because of multiple complex medical issues. Further recommendations to follow. MMODL / IJN: [id number] /
--- NOTE | 2020-08-03 19:26 | P.PN ---
Subjective HISTORY OF PRESENT ILLNESS: This is a 89-year-old male with a past medical history significant for hypertension, hyperlipidemia, congestive heart failure, and diabetes mellitus. Patient is unsure if he follows with a mechanical service representative. We have been asked to see the patient in consultation for congestive heart failure. Patient examined at the bedside. Patient is somewhat of a poor historian. However he is alert and oriented. Patient states he has been having shortness of breath over the last week. He also reports increased lower extremity edema and scrotal edema. He denies chest pain or pressure. Patient was started on IV Lasix in the emergency room. Patient reports his shortness of breath has improved and also his lower extremity edema has improved. Patient has a documented history of CAD, however upon further questioning of the patient he states he has never had a heart attack and denies having any previous stent placements. 08/03/20 Patient seen and examined. Echo with EF 30-35%, at least mild to moderate . Remains on Lasix 40mg bid. No complaints today. Occasional low BP, systolic at 88 today however asymptomatic. Cr stable at 1.2 today. REVIEW OF SYSTEMS: At the time of my exam: CONSTITUTIONAL: Denies fever or chills. HEENT: Denies blurred vision, vision changes, or eye pain. Denies hemoptysis CARDIOVASCULAR: Denies chest pain. Denies orthopnea. Denies PND. Denies palpitations RESPIRATORY: Denies shortness of breath. GASTROINTESTINAL: Denies abdominal pain. Denies nausea or vomiting. HEMATOLOGIC: Denies bleeding disorders. GENITOURINARY: Denies any blood in urine. SKIN: Denies pruitis. Denies rash. PHYSICAL EXAM: VITAL SIGNS: Reviewed. GENERAL: Well-developed in no acute distress. Appears unkept with poor hygiene HEENT: Head is normocephalic. Pupils are equal, round. Sclerae anicteric. Mucous membranes of the mouth are moist. Neck supple. No JVD or thyromegaly LUNGS: Respirations even and unlabored. Lungs diminished with bibasilar rales HEART: Regular rate and rhythm. S1 and S2 heard. Systolic murmur. ABDOMEN: Soft. Nondistended. Nontender. EXTREMITIES: Normal range of motion. No clubbing or cyanosis. Peripheral pulses intact. Bilateral lower extremity edema as well as scrotal edema NEUROLOGIC: Awake and alert. Oriented x 3. ASSESSMENT: Acute exacerbation of systolic congestive heart failure, EF 35-40%, BNP 15,000 Scrotal edema, ultrasound revealing moderate bilateral hydroceles Valvular heart disease: Most recent echo reveals moderate aortic stenosis, [id number] mitral regurgitation, and moderate tricuspid regurgitation Hypertension Hyperlipidemia Diabetes mellitus Obesity: BMI 36.4 Hypotension PLAN: Continue decreased Losartan dose for now given soft BP readings Continue PO Lasix for now however if BP's remain low, may consider decreasing Monitor kidney function Daily weight Accurate I&O Objective - Vital Signs Vital signs: Vital Signs Temp 97.8 F 08/03/20 12:14 Pulse 58 L 08/03/20 12:14 Resp 20 08/03/20 12:14 BP 126/67 08/03/20 17:47 Pulse Ox 94 L 08/03/20 12:14 Intake & Output 08/03/20 08/03/20 08/04/20 06:59 18:59 06:59 Weight 126.3 kg Other: Voiding Method Urinal - Labs CBC & Chem 7: 08/03/20 05:20 08/03/20 05:20 Labs: Abnormal Lab Results - Last 24 Hours (Table) 08/03/20 08/03/20 Range/Units 05:20 05:20 RBC 4.23 L (4.40-5.60) X 10*6/uL Hgb 11.6 L (13.0-17.0) g/dL Hct 38.4 L (39.6-50.0) % MCHC 30.2 L (32.0-37.0) g/dL RDW 15.8 H (11.5-14.5) % Plt Count 91 L (140-440) X 10*3/uL Plt Count Comment DECREASED A Carbon Dioxide 34.7 H (21.6-31.8) mmol/L BUN 30.0 H (9.0-27.0) mg/dL Est GFR (CKD-EPI)NonAf 54.0 L (60.0-200.0) BUN/Creatinine Ratio 25.00 H (12.00-20.00) Ratio Calcium 8.4 L (8.7-10.3) mg/dL Microbiology - Last 24 Hours (Table) 07/31/20 16:14 Blood Culture - Preliminary Blood No Growth after 72 hours 07/31/20 16:36 Blood Culture - Preliminary Blood No Growth after 72 hours
--- NOTE | 2020-08-03 20:39 | P.GSCN ---
History of Present Illness Consult date: 08/03/20 Reason for Consult: Scrotal edema Requesting physician: Erica Weaver History of present illness: The patient is an 89-year-old white male with a history of congestive heart failure. He was admitted with increased shortness of breath, lower extremity edema, and scrotal edema. Scrotal ultrasound shows marked scrotal edema, with the scrotal wall measuring 4.8 cm in diameter. There is also evidence of bilateral hydroceles. The patient denies testicular pain. He states that his dyspnea is much improved. Review of Systems - Constitutional Denies chills, Denies fever - Respiratory Reports dyspnea - Genitourinary Denies dysuria, Denies hematuria, Denies testicular pain Past Medical History Past Medical History: Coronary Artery Disease (CAD), Heart Failure, Diabetes M ellitus, Hyperlipidemia, Hypertension, Osteoarthritis (OA) Additional Past Medical History / Comment(s): obesity valley fever History of Any Multi-Drug Resistant Organisms: None Reported Additional Past Surgical History / Comment(s): lung surg Past Anesthesia/Blood Transfusion Reactions: No Reported Reaction Past Psychological History: No Psychological Hx Reported Smoking Status: Former smoker Past Alcohol Use History: Rare Past Drug Use History: None Reported - Past Family History Father Family Medical History: Myocardial Infarction (PR) Additional Family Medical History / Comment(s): emphysema Medications and Allergies Home Medications Medication Instructions Recorded Confirmed Type Aspirin 81 mg PO DAILY #100 chew 10/23/19 07/31/20 Rx Furosemide [Lasix] 40 mg PO BID@0900,1600 #60 tab 10/23/19 07/31/20 Rx Losartan [Cozaar] 50 mg PO DAILY #30 tab 10/23/19 07/31/20 Rx Acetaminophen [Tylenol Arthritis] 650 mg PO Q6H PRN 07/31/20 07/31/20 History Atorvastatin [Lipitor] 40 mg PO HS 07/31/20 07/31/20 History Carvedilol [Coreg] 6.25 mg PO BID 07/31/20 07/31/20 History Cyanocobalamin (Vitamin B-12) 1,000 mcg PO DAILY 07/31/20 07/31/20 History [Vitamin B-12] Potassium Chloride ER [K-Dur 20] 20 meq PO DAILY 07/31/20 07/31/20 History Allergies Allergy/AdvReac Type Severity Reaction Status Date / Time No Known Allergies Allergy Verified 07/31/20 16:23 Surgical - Exam Vital Signs Temp Pulse Resp BP Pulse Ox 97.8 F 87 18 147/97 94 L 07/31/20 12:50 07/31/20 12:50 07/31/20 12:50 07/31/20 12:50 07/31/20 12:50 - General well developed, well nourished, no distress - Respiratory normal respiratory effort - Abdomen Abdomen: soft, non tender, no guarding, no rigid, no rebound - Genitourinary The penis is uncircumcised. Significant penoscrotal edema is noted. It is not possible to palpate the testes due to the significant edema. There is no skin excoriation. - Psychiatric oriented to time, oriented to person, oriented to place, speech is normal, memory intact Results - Labs 08/03/20 05:20 08/03/20 05:20 Abnormal Lab Results - Last 24 Hours (Table) 08/02/20 08/03/20 08/03/20 Range/Units 08:42 05:20 05:20 RBC 4.29 L 4.23 L (4.40-5.60) X 10*6/uL Hgb 12.0 L 11.6 L (13.0-17.0) g/dL Hct 39.5 L 38.4 L (39.6-50.0) % MCHC 30.4 L 30.2 L (32.0-37.0) g/dL RDW 15.9 H 15.8 H (11.5-14.5) % Plt Count 93 L 91 L (140-440) X 10*3/uL Plt Count Comment DECREASED A DECREASED A MPV 14.0 H (9.5-12.2) fL Carbon Dioxide 34.7 H (21.6-31.8) mmol/L BUN 30.0 H (9.0-27.0) mg/dL Est GFR (CKD-EPI)NonAf 54.0 L (60.0-200.0) BUN/Creatinine Ratio 25.00 H (12.00-20.00) Ratio Calcium 8.4 L (8.7-10.3) mg/dL Microbiology - Last 24 Hours (Table) 07/31/20 16:36 Blood Culture - Preliminary Blood No Growth after 48 hours 07/31/20 16:14 Blood Culture - Preliminary Blood No Growth after 48 hours Diabetes panel 08/03/20 Range/Units 05:20 Sodium 144 (135-145) mmol/L Potassium 3.7 (3.5-5.5) mmol/L Chloride 102 (96-109) mmol/L Carbon Dioxide 34.7 H (21.6-31.8) mmol/L BUN 30.0 H (9.0-27.0) mg/dL Creatinine 1.2 (0.6-1.5) mg/dL Glucose 93 (70-110) mg/dL Calcium 8.4 L (8.7-10.3) mg/dL Calcium panel 08/03/20 Range/Units 05:20 Calcium 8.4 L (8.7-10.3) mg/dL Pituitary panel 08/03/20 Range/Units 05:20 Sodium 144 (135-145) mmol/L Potassium 3.7 (3.5-5.5) mmol/L Chloride 102 (96-109) mmol/L Carbon Dioxide 34.7 H (21.6-31.8) mmol/L BUN 30.0 H (9.0-27.0) mg/dL Creatinine 1.2 (0.6-1.5) mg/dL Glucose 93 (70-110) mg/dL Calcium 8.4 L (8.7-10.3) mg/dL Adrenal panel 08/03/20 Range/Units 05:20 Sodium 144 (135-145) mmol/L Potassium 3.7 (3.5-5.5) mmol/L Chloride 102 (96-109) mmol/L Carbon Dioxide 34.7 H (21.6-31.8) mmol/L BUN 30.0 H (9.0-27.0) mg/dL Creatinine 1.2 (0.6-1.5) mg/dL Glucose 93 (70-110) mg/dL Calcium 8.4 L (8.7-10.3) mg/dL Assessment and Plan (1) Scrotal edema Current Visit: Yes Status: Acute Code(s): N50.89 - OTHER SPECIFIED DISORDERS OF THE MALE GENITAL ORGANS SNOMED Code(s): 19998680 Plan: I reassured the patient that his penoscrotal edema is not the result of genitourinary pathology, but rather the results of fluid overload secondary to congestive heart failure. The edema should improve with diuresis, and I also suggested scrotal elevation. Please notify us if we can be of further assistance. Should be noted that this consultation was placed on 07/31/2020 but I was not notified of it. This is the reason he was not seen by me until today. Time with Patient: Less than 30
[2020-08-03] MEDS: ATORVASTATIN 40 MG TAB PO SCH (21:28)
[2020-08-03] MEDS: TEMAZEPAM 15 MG CAP PO PRN (21:28)
--- NOTE | 2020-08-03 23:13 | PN ---
PROGRESS NOTE DATE OF SERVICE: 08/03/2020 REASON FOR FOLLOWUP: Scrotal cellulitis. INTERVAL HISTORY: Patient is currently afebrile. The patient is breathing more comfortably. Denies having any sharp pain. Pain and swelling to the scrotal area has decreased. PHYSICAL EXAMINATION: Blood pressure 126/67, pulse of 80, temperature is 97.8. General description: The patient is an elderly male lying in bed in no distress. Respiratory system: Unlabored breathing, decreased intensity of breath sounds. No wheeze. Heart S1, S2. Regular rate and rhythm. Abdomen soft no tenderness. Scrotal swelling present and has decreased. LABS: White count normal. Creatinine 1.2. DIAGNOSTIC IMPRESSION AND PLAN: Patient with significant swelling of the scrotum area with associated redness, more likely from fluid overload in this patient with underlying congestive heart failure. Cellulitis less likely but not entirely excluded. Clinically improved. Currently on Unasyn. Continue supportive care. MMODL / IJN: [id number] /
[2020-08-04] MEDS: AMPICILLIN-SULBACTAM 3 GM in SODIUM CHLORIDE 0.9% 100 ML IVPB SCH ×5 (01:00→23:48)
[2020-08-04] MEDS: LORazepam 1 MG TAB PO PRN (01:01)
[2020-08-04] MEDS: POTASSIUM CHLORIDE ER 20 MEQ TAB.ER PO SCH (08:53)
[2020-08-04] MEDS: CYANOCOBALAMIN 500 MCG TAB PO SCH (08:53)
[2020-08-04] MEDS: HEPARIN SODIUM,PORCINE 5,000 UNIT/ML 1 ML VIAL SQ SCH ×2 (08:53→21:06)
[2020-08-04] MEDS: FUROSEMIDE 40 MG TAB PO SCH ×2 (08:53→15:46)
[2020-08-04] MEDS: ASPIRIN 81 MG PO SCH (08:53)
[2020-08-04] MEDS: PANTOPRAZOLE 40 MG TABLET PO SCH (08:53)
[2020-08-04] MEDS: carvediloL 6.25 MG TAB PO SCH ×2 (08:54→17:00)
[2020-08-04] MEDS: MULTIVITAMINS, THERA 1 EACH TAB PO SCH (12:28)
[2020-08-04] MEDS: FOLIC ACID 1 MG TAB PO SCH (12:28)
[2020-08-04] MEDS: THIAMINE 100 MG TAB PO SCH (12:28)
--- NOTE | 2020-08-04 15:04 | P.PN ---
Subjective This is a pleasant 89-year-old male past medical history significant for hypertension, dyslipidemia, heart failure and diabetes mellitus. 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 He is currently being treated for acute exacerbation of systolic congestive heart failure with ejection fraction of 35-40%. He has been maintained on oral diuretics for the last 24 hours. He is seen and examined resting comfortably lying flat in bed in no acute distress. Blood pressure 126/80 heart rate 76 afebrile maintaining oxygen saturation on room air. Currently maintained on aspirin 81 mg daily, atorvastatin 40 mg daily, coreg 6.25 mg BID and lasix 40 mg BID. GENERAL: Well-appearing, well-nourished and in no acute distress. NECK: Supple without JVD or thyromegaly. LUNGS: Breath sounds clear to auscultation bilaterally. Respiration equal and unlabored. No wheezes, rales or rhonchi. Diminished bilaterally. HEART: Regular rate and rhythm with systolic ejection murmur at the base, no rubs or gallops. S1 and S2 heard. EXTREMITIES: Normal range of motion, 1+ bilateral lower extremity edema. No clubbing or cyanosis. Peripheral pulses intact. ASSESSMENT Acute on chronic systolic heart failure Scrotal cellulitis Hypertension Dyslipidemia Diabetes mellitus PLAN Continue current medical regimen. If blood pressure remains stable we can add LILIANE inhibitor. Continue medical therapy for infection. Clinically he is euvolemic. Nurse Practitioner note has been reviewed, I agree with a documented findings and plan of care. Patient was seen and examined. Objective - Vital Signs Vital signs: Vital Signs Temp 98.6 F 08/04/20 12:55 Pulse 76 08/04/20 12:55 Resp 16 08/04/20 04:10 BP 126/80 08/04/20 12:55 Pulse Ox 96 08/04/20 12:55 Intake & Output 08/03/20 08/04/20 08/04/20 18:59 06:59 18:59 Weight 128.5 kg Other: Voiding Method Urinal - Labs CBC & Chem 7: 08/03/20 05:20 08/03/20 05:20 Labs: Microbiology - Last 24 Hours (Table) 07/31/20 16:14 Blood Culture - Preliminary Blood No Growth after 72 hours 07/31/20 16:36 Blood Culture - Preliminary Blood No Growth after 72 hours
--- NOTE | 2020-08-04 15:28 | P.PN ---
Subjective Progress Note Date: 08/04/20 This is an 89-year-old male who was recently admitted with bilateral scrotal cellulitis and hydrocele and is being closely monitored. Infectious disease, cardiology, along with urology following. Patient is maintained on IV antibiotics in the form of Unasyn and will continue at this time. Swelling has slightly improved of the scrotum. Will discuss with infectious disease about discharge antibiotics for the possibility of IV antibiotic therapy. Patient is maintained on oral Lasix and will continue at this time. Patient is currently on Coreg 6.25 twice daily along with 40 of Lasix twice daily and will continue to monitor the blood pressure closely as he has had low blood pressure readings. Will further adjust accordingly. Patient denies any chest pain or palpitations. Patient is afebrile. Review of systems: Constitutional: No reports of fatigue, fever, or chills Cardiovascular: No reports of chest pain or palpitations Respiratory: No reports of shortness of breath or cough GI: No reports of nausea, vomiting, or diarrhea : No reports of dysuria or retention, reports continued scrotal swelling and redness although slightly improved Neurovascular: Reports generalized weakness All medications have been reviewed Objective - Vital Signs Vital signs: Vital Signs Temp 98.6 F 08/04/20 12:55 Pulse 76 08/04/20 12:55 Resp 16 08/04/20 04:10 BP 126/80 08/04/20 12:55 Pulse Ox 96 08/04/20 12:55 Intake & Output 08/03/20 08/04/20 08/04/20 18:59 06:59 18:59 Weight 128.5 kg Other: Voiding Method Urinal - Exam Gen: This is a 89-year-old male awake, alert and oriented 3, well-developed, well-nourished, obese. Present is 98.6F, pulse is 76, respirations are 16, blood pressure 126/80, oxygen saturation is 96% on room air HEENT: Head is atraumatic, normocephalic. Pupils equal, round. Sclerae is anicteric. NECK: Supple. No JVD. No lymphadenopathy. No thyromegaly. LUNGS: Breath sounds diminished bilaterally with a few scattered rhonchi noted. No intercostal retractions. HEART: S1, S2 are muffled ABDOMEN: Soft. Bowel sounds are present. No masses. No tenderness. Scrotal swelling with cellulitis noted EXTREMITIES: No pedal edema. No calf tenderness. NEUROLOGICAL: Patient is awake, alert and oriented x3. diffusely weak - Labs CBC & Chem 7: 08/03/20 05:20 08/03/20 05:20 Labs: Microbiology - Last 24 Hours (Table) 07/31/20 16:14 Blood Culture - Preliminary Blood No Growth after 72 hours 07/31/20 16:36 Blood Culture - Preliminary Blood No Growth after 72 hours Assessment and Plan Assessment: Bilateral scrotal cellulitis and hydrocele with failure of outpatient treatment with possible sepsis, present on admission Possible congestive heart failure, acute exacerbation with acute on chronic sy stolic dysfunction, ejection fraction 35-40% Relative hypotension Elevated bilirubin Thrombocytopenia elevated CRP Increased BUN history of coronary artery disease Diabetes mellitus type 2 hypertension Hyperlipidemia History of degenerative joint disease History of valley fever obesity with body mass index of 36.4 Recommendations and discussion: Recommend continue with current medications, management, and symptomatic treatment. Continue with IV antibiotic therapy and infectious disease is foll owing. Urology and cardiology also following as well and patient is currently maintained on Lasix twice daily along with Coreg and will monitor blood pressure closely as blood pressure is been on the lower side. Recommend holding Coreg and Lasix if blood pressure continues to drop and will adjust. Case management and social work following this patient will be going to [facility]. Infectious disease also following and patient is maintained on IV Unasyn and will discuss with ID about discharge antibiotics and/or the possibility of IV antibiotic therapy upon discharge. Possible discharge in 24-48 hours.
[2020-08-04] MEDS: SODIUM CHLORIDE 0.9% 1,000 ML IV SCH (15:47)
--- NOTE | 2020-08-04 18:48 | PN ---
PROGRESS NOTE DATE OF SERVICE: 08/04/2020 REASON FOR FOLLOW UP: Scrotal cellulitis. INTERVAL HISTORY: The patient is currently afebrile. The patient is breathing comfortably. Denies having any chest pain. No shortness of breath, abdominal pain, or any worsening pain to the scrotal area. PHYSICAL EXAMINATION: Blood pressure 126/80, pulse of 76, temperature 98.6, he is 96% on room air. General description is an elderly male lying in bed in no distress. Respiratory system: Unlabored breathing, clear to auscultation anteriorly. Heart S1, S2. Regular rate and rhythm. Abdomen is soft, no tenderness. Scrotal swelling persists. Redness decreased. LABS: No new labs been obtained today. DIAGNOSTIC IMPRESSION AND PLAN: Patient with scrotal swelling and redness, possibly due to fluid overload, underlying cellulitis less likely but not entirely excluded. The patient is covered with Unasyn to cover for short course and monitor clinical course closely. MMODL / IJN: [id number] / MTDD
[2020-08-04 19:22] VITALS: RESP 18
[2020-08-04] MEDS: TEMAZEPAM 15 MG CAP PO PRN (21:05)
[2020-08-04] MEDS: ATORVASTATIN 40 MG TAB PO SCH (21:06)
[2020-08-05 04:22] VITALS: BP 113/76; PULSE 61; TEMP 97.6
[2020-08-05] MEDS: AMPICILLIN-SULBACTAM 3 GM in SODIUM CHLORIDE 0.9% 100 ML IVPB SCH ×2 (05:16→12:12)
[2020-08-05] MEDS: PANTOPRAZOLE 40 MG TABLET PO SCH (08:22)
[2020-08-05] MEDS: carvediloL 6.25 MG TAB PO SCH (08:22)
[2020-08-05] MEDS: ASPIRIN 81 MG PO SCH (08:22)
[2020-08-05] MEDS: MULTIVITAMINS, THERA 1 EACH TAB PO SCH (08:23)
[2020-08-05] MEDS: FUROSEMIDE 40 MG TAB PO SCH (08:23)
[2020-08-05] MEDS: CYANOCOBALAMIN 500 MCG TAB PO SCH (08:23)
[2020-08-05] MEDS: THIAMINE 100 MG TAB PO SCH (08:23)
[2020-08-05] MEDS: POTASSIUM CHLORIDE ER 20 MEQ TAB.ER PO SCH (08:23)
[2020-08-05] MEDS: HEPARIN SODIUM,PORCINE 5,000 UNIT/ML 1 ML VIAL SQ SCH (08:23)
[2020-08-05] MEDS: FOLIC ACID 1 MG TAB PO SCH (08:23)
[2020-08-05 10:59] LABS: African American GFR (CKD) 69.6 (60.0-200.0); Anion Gap 6.4 mmol/L (4.00-12.00); BUN/Creat Ratio 26.36 Ratio (12.00-20.00); Calcium 8.2 mg/dL (8.7-10.3); Carbon Dioxide 31.6 mmol/L (21.6-31.8); Potassium 4.3 mmol/L (3.5-5.5)
[2020-08-05 11:05] LABS: Basophils # (A) 0.02 X 10*3/uL (0.00-0.10); Basophils % (A) 0.3 %; Eosinophils % (A) 2.9 %; HGB 11.2 g/dL (13.0-17.0); Lymphocytes # (A) 1.56 X 10*3/uL (0.90-5.00); Lymphocytes % (A) 22.5 %; MCH 27.6 pg (27.0-32.0); MCHC 30.3 g/dL (32.0-37.0); MCV 91.1 fL (80.0-97.0); Mean Platelet Volume 13.2 fL (9.5-12.2); Monocytes # (A) 0.67 X 10*3/uL (0.20-1.00); Monocytes % (A) 9.7 %; Neutrophils # (A) 4.44 X 10*3/uL (1.80-7.70); Neutrophils % (A) 64.2 %; Platelet Count 86 X 10*3/uL (140-440); RBC 4.06 X 10*6/uL (4.40-5.60); RDW 15.9 % (11.5-14.5); WBC 6.92 X 10*3/uL (4.50-10.00)
--- NOTE | 2020-08-05 11:22 | P.PN ---
Subjective This is a pleasant 89-year-old male past medical history significant for hypertension, dyslipidemia, heart failure and diabetes mellitus. 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 He is seen and examined sitting up the recliner in no acute distress. He denies chest pain, shortness of breath, dizziness or palpitations. Blood pressure 113/76 heart rate 61 afebrile and maintaining oxygen saturation on room air. GENERAL: Well-appearing, well-nourished and in no acute distress. NECK: Supple without JVD or thyromegaly. LUNGS: Breath sounds clear to auscultation bilaterally. Respiration equal and unlabored. No wheezes, rales or rhonchi. Diminished bilaterally. HEART: Regular rate and rhythm with systolic ejection murmur at the base, no rubs or gallops. S1 and S2 heard. EXTREMITIES: Normal range of motion, 1+ bilateral lower extremity edema. No clubbing or cyanosis. Peripheral pulses intact. ASSESSMENT Acute on chronic systolic heart failure Scrotal cellulitis Hypertension Dyslipidemia Diabetes mellitus PLAN Continue current medical regimen. Add small dose of lisinopril 2.5 mg daily. Increase as tolerated. Continue medical therapy for infection. Clinically he is euvolemic. Nurse Practitioner note has been reviewed, I agree with a documented findings and plan of care. Patient was seen and examined. Objective - Vital Signs Vital signs: Vital Signs Temp 97.6 F 08/05/20 04:20 Pulse 61 08/05/20 04:20 Resp 18 08/05/20 04:20 BP 113/76 08/05/20 04:20 Pulse Ox 92 L 08/05/20 08:41 Intake & Output 08/04/20 08/05/20 08/05/20 18:59 06:59 18:59 Intake Total 200 800 Balance 200 800 Weight 133.5 kg Intake: Intake, IV Titration 200 200 Amount Ampicillin-Sulbactam 3 gm 200 200 In Sodium Chloride 0.9% 100 ml @ 200 mls/hr IVPB Q6HR [facility] Rx#:[id number] Oral 600 Other: Voiding Method Urinal Urinal # Voids 3 - Labs CBC & Chem 7: 08/05/20 05:51 08/05/20 05:51 Labs: Abnormal Lab Results - Last 24 Hours (Table) 08/05/20 08/05/20 Range/Units 05:51 05:51 RBC 4.06 L (4.40-5.60) X 10*6/uL Hgb 11.2 L (13.0-17.0) g/dL Hct 37.0 L (39.6-50.0) % MCHC 30.3 L (32.0-37.0) g/dL RDW 15.9 H (11.5-14.5) % Plt Count 86 L (140-440) X 10*3/uL Plt Count Comment DECREASED A MPV 13.2 H (9.5-12.2) fL BUN 29.0 H (9.0-27.0) mg/dL BUN/Creatinine Ratio 26.36 H (12.00-20.00) Ratio Calcium 8.2 L (8.7-10.3) mg/dL Microbiology - Last 24 Hours (Table) 07/31/20 16:14 Blood Culture - Preliminary Blood No Growth after 96 hours 07/31/20 16:36 Blood Culture - Preliminary Blood No Growth after 96 hours
--- NOTE | 2020-08-05 16:32 | P.DS ---
Providers Date of admission: 07/31/20 16:06 Expected date of discharge: 08/05/20 Attending physician: Erica Weaver Consults: 07/31/20 16:06 Consult Physician Routine Consulting Provider: James Mark Consult Reason/Comments: edema, correlate for scrotal edema versus cellulitis Do you want consulting provider notified?: Yes 07/31/20 18:01 Consult Physician Routine Consulting Provider: Blanca Ellsworth Consult Reason/Comments: chf Do you want consulting provider notified?: Yes 08/01/20 15:34 Consult Physician Routine Consulting Provider: Edgardo Klein Consult Reason/Comments: scrotal celluliitis Do you want consulting provider notified?: Yes Primary care physician: Stated None Hospital Course: Final diagnosis Bilateral scrotal cellulitis and hydrocele with failure of outpatient treatment with possible sepsis, present on admission Possible congestive heart failure, acute exacerbation with acute on chronic systolic dysfunction, ejection fraction 35-40% Relative hypotension Elevated bilirubin Thrombocytopenia elevated CRP Increased BUN history of coronary artery disease Diabetes mellitus type 2 hypertension Hyperlipidemia History of degenerative joint disease History of valley fever obesity with body mass index of 36.4 Discharge disposition Patient is being discharged in a stable condition with guarded prognosis to [facility] home where he is a resident. Patient will follow-up with Dr. Nj upon discharge. Patient also instructed to follow-up with cardiology Dr. Monroy along with infectious disease in the outpatient setting. Patient will continue with a short course of oral antibiotics in the form of Augmentin twice daily for the next 7 days and then may discontinue. Patient will also continue Lasix 40 mg twice daily in the outpatient setting. Total time taken is greater than 35 minutes. History of present illness This is an 89-year-old male who was recently admitted with bilateral scrotal cellulitis and hydrocele and was being closely monitored. Infectious disease was following. Patient was continued on IV antibiotics and we'll transition to oral Augmentin twice daily for the next 1 week and then may discontinue. Patient will also continue with furosemide 40 mg twice daily in the outpatient setting. Patient instructed to continue to elevate lower extremities while at rest along with scrotum as he continues to have some swelling although somewhat improved. Patient will follow-up with wound care center in the outpatient setting. Patient continues to be weak although has improved and will be returning to [facility] home as recommended by legal guardian. Increased supervision and/or placement will be discussed in the outpatient setting. Currently no reports of chest pain, shortness of breath, or palpitations. Patient is afebrile. No reports of nausea or vomiting and patient is tolerating diet. Guarded prognosis. On exam vital signs are stable. Cardio S1, S2 are muffled. Respiratory shows diminished breath sounds at the bases with no wheezing or rhonchi noted. Abdomen is soft and nontender. Nervous system shows mild diffuse weakness. Please refer to medication reconciliation sheet for a list of medications. Patient Condition at Discharge: Stable Plan - Discharge Summary Discharge Rx Participant: No New Discharge Prescriptions: New Amoxic-Pot Clav 875-125Mg [Augmentin 875-125] 1 tab PO Q12HR 7 Days #14 tab Folic Acid 1 mg PO DAILY@1200 30 Days #30 tab Multivitamins, Thera [Multivitamin (formulary)] 1 each PO DAILY@1200 30 Days #30 tab HYDROcodone/APAP 5-325MG [Peck 5-325] 1 each PO Q6HR PRN #12 tab PRN Reason: Pain Acetaminophen Tab [Tylenol] 500 mg PO Q6HR PRN tab PRN Reason: Fever And/ Or Pain Thiamine [Vitamin B-1] 100 mg PO DAILY@1200 30 Days #30 tab lisinopriL [Zestril] 2.5 mg PO DAILY 30 Days #30 tab Continue Aspirin 81 mg PO DAILY #100 chew Furosemide [Lasix] 40 mg PO BID@0900,1600 #60 tab Carvedilol [Coreg] 6.25 mg PO BID Acetaminophen [Tylenol Arthritis] 650 mg PO Q6H PRN PRN Reason: Pain Potassium Chloride ER [K-Dur 20] 20 meq PO DAILY Cyanocobalamin (Vitamin B-12) [Vitamin B-12] 1,000 mcg PO DAILY Atorvastatin [Lipitor] 40 mg PO HS Discontinued Losartan [Cozaar] 50 mg PO DAILY #30 tab Discharge Medication List Aspirin 81 mg PO DAILY #100 chew 10/23/19 [Rx] Furosemide [Lasix] 40 mg PO BID@0900,1600 #60 tab 10/23/19 [Rx] Acetaminophen [Tylenol Arthritis] 650 mg PO Q6H PRN 07/31/20 [History] Atorvastatin [Lipitor] 40 mg PO HS 07/31/20 [History] Carvedilol [Coreg] 6.25 mg PO BID 07/31/20 [History] Cyanocobalamin (Vitamin B-12) [Vitamin B-12] 1,000 mcg PO DAILY 07/31/20 [History] Potassium Chloride ER [K-Dur 20] 20 meq PO DAILY 07/31/20 [History] Acetaminophen Tab [Tylenol] 500 mg PO Q6HR PRN tab 08/05/20 [Rx] Amoxic-Pot Clav 875-125Mg [Augmentin 875-125] 1 tab PO Q12HR 7 Days #14 tab 08/05/20 [Rx] Folic Acid 1 mg PO DAILY@1200 30 Days #30 tab 08/05/20 [Rx] HYDROcodone/APAP 5-325MG [Peck 5-325] 1 each PO Q6HR PRN #12 tab 08/05/20 [Rx] Multivitamins, Thera [Multivitamin (formulary)] 1 each PO DAILY@1200 30 Days #30 tab 08/05/20 [Rx] Thiamine [Vitamin B-1] 100 mg PO DAILY@1200 30 Days #30 tab 08/05/20 [Rx] lisinopriL [Zestril] 2.5 mg PO DAILY 30 Days #30 tab 08/05/20 [Rx] Follow up Appointment(s)/Referral(s): Denisse Nj MD [REFERRING] - 1-2 Days (patient to call office to set up appt.) Steve Monroy DO [STAFF PHYSICIAN] - 2 Weeks (left information with office they will get back to him and schedule appt.) Edgardo Klein MD [STAFF PHYSICIAN] - 08/12/20 1:15 pm Ambulatory/Diagnostic Orders: Complete Blood Count w/diff [LAB.AMB] Time Frame: 3 Days, Location: None Selected Patient Instructions/Handouts: Pulmonary Edema (DC) Activity/Diet/Wound Care/Special Instructions: Patient is returning to AF Activity as tolerated Continue to elevate lower extremities and scrotum while at rest Continue with antibiotics for 1 week and then may discontinue Follow-up outpatient with primary care provider Follow-up with cardiology outpatient Follow-up infectious disease outpatient Labs in 2-3 days Continue heart healthy diet Discharge Disposition: TRANSFER TO SNF/ECF
--- NOTE | 2020-08-08 15:15 | P.PN ---
Progress Note - Text Progress Note Date: 08/05/20 REASON FOR FOLLOW UP: Scrotal cellulitis. INTERVAL HISTORY: The patient remains to be afebrile. The patient is breathing comfortably. The patient denies any chest pain. No shortness of breath, abdominal pain, and currently denies pain to the scrotal area. PHYSICAL EXAMINATION: Blood pressure 120/80, pulse of 76, temperature 98.6, he is 96% on room air. General description is an elderly male lying in bed in no distress. Respiratory system: Unlabored breathing, clear to auscultation anteriorly. Heart S1, S2. Regular rate and rhythm. Abdomen is soft, no tenderness. Scrotal swelling persists however redness has significantly decreased. LABS: Reviewed. DIAGNOSTIC IMPRESSION AND PLAN: Patient with scrotal swelling and redness, possibly due to fluid overload, underlying cellulitis less likely but not entirely excluded. The patient will finish therapy with 1 week of oral Augmentin and close outpatient follow-up
== END 2020-08-05 14:55 | DRG 727 ==
LOC: EC 12:49 → 5NMEDONC 16:06
PROVIDERS: ADMIT Hospitalist; ATTEND Hospitalist
DX: N49.2 Inflammatory disorders of scrotum (principal); I50.23 Acute on chronic systolic (congestive) heart failure; I45.2 Bifascicular block; R17 Unspecified jaundice; N43.3 Hydrocele, unspecified; D69.6 Thrombocytopenia, unspecified; E11.9 Type 2 diabetes mellitus without complications; E66.9 Obesity, unspecified; E78.5 Hyperlipidemia, unspecified; I08.1 Rheumatic disorders of both mitral and tricuspid valves; I11.0 Hypertensive heart disease with heart failure; I25.10 Atherosclerotic heart disease of native coronary artery without angina pectoris; Z68.36 Body mass index [BMI] 36.0-36.9, adult; Z79.82 Long term (current) use of aspirin; Z79.899 Other long term (current) drug therapy; Z82.49 Family history of ischemic heart disease and other diseases of the circulatory system; Z82.5 Family history of asthma and other chronic lower respiratory diseases; Z87.891 Personal history of nicotine dependence; I95.9 Hypotension, unspecified; Z20.822 Contact with and (suspected) exposure to COVID-19
CPT/HCPCS: 71046; 76870; 80048; 80053; 81003; 82533; 83880; 84484; 85025; 85610; 85730; 86140; 87040; 87635; 93005; 93306; 93975; 94760; 96361; 96365; 96374; 96375; 99285

== ENCOUNTER 2020-09-20 09:21 | Inpatient (IN) | payer MEDICARE, OTHER ==
--- NOTE | 2020-09-20 09:38 | ED ---
General Adult HPI - General Chief complaint: Weakness Stated complaint: slurred speech Time Seen by Provider: 09/20/20 09:26 Source: patient, EMS, RN notes reviewed Mode of arrival: EMS Limitations: no limitations - History of Present Illness Initial comments: Patient is a pleasant 89-year-old male presenting to the emergency Department with concerns for her balance and speech problems. Onset of symptoms was yesterday afternoon, sometime between lunch and dinner. Patient states symptoms do continue. Patient states he did have somewhat similar symptoms around a month ago. Patient is somewhat a poor historian. Patient denies any confusion. Patient has not identified isolated area of weakness. - Related Data Home Medications Medication Instructions Recorded Confirmed Acetaminophen [Tylenol Arthritis] 650 mg PO Q6H PRN 07/31/20 09/20/20 Atorvastatin [Lipitor] 40 mg PO HS 07/31/20 09/20/20 Carvedilol [Coreg] 6.25 mg PO BID 07/31/20 09/20/20 Cyanocobalamin (Vitamin B-12) 1,000 mcg PO DAILY 07/31/20 09/20/20 [Vitamin B-12] Potassium Chloride ER [K-Dur 20] 20 meq PO DAILY 07/31/20 09/20/20 Multivitamins, Thera [Multivitamin 1 tab PO DAILY@1200 09/20/20 09/20/20 (formulary)] Previous Rx's Medication Instructions Recorded Aspirin 81 mg PO DAILY #100 chew 10/23/19 Furosemide [Lasix] 40 mg PO BID@0900,1600 #60 tab 10/23/19 Acetaminophen Tab [Tylenol] 500 mg PO Q6HR PRN tab 08/05/20 Folic Acid 1 mg PO DAILY@1200 30 Days #30 tab 08/05/20 Thiamine [Vitamin B-1] 100 mg PO DAILY@1200 30 Days #30 08/05/20 tab lisinopriL [Zestril] 2.5 mg PO DAILY 30 Days #30 tab 08/05/20 Allergies Allergy/AdvReac Type Severity Reaction Status Date / Time No Known Allergies Allergy Verified 09/20/20 09:51 Review of Systems ROS Statement: Those systems with pertinent positive or pertinent negative responses have been documented in the HPI. ROS Other: All systems not noted in ROS Statement are negative. Constitutional: Denies: fever Eyes: Denies: eye pain ENT: Denies: ear pain Respiratory: Denies: cough Cardiovascular: Denies: chest pain Endocrine: Denies: fatigue Gastrointestinal: Denies: abdominal pain Genitourinary: Denies: dysuria Musculoskeletal: Denies: back pain Skin: Denies: rash Neurological: Reports: as per HPI, weakness. Denies: headache Past Medical History Past Medical History: Coronary Artery Disease (CAD), Heart Failure, Diabetes Mellitus, Hyperlipidemia, Hypertension, Osteoarthritis (OA) Additional Past Medical History / Comment(s): obesity valley fever History of Any Multi-Drug Resistant Organisms: None Reported Additional Past Surgical History / Comment(s): lung surg Past Anesthesia/Blood Transfusion Reactions: No Reported Reaction Past Psychological History: No Psychological Hx Reported Smoking Status: Former smoker Past Alcohol Use History: Rare Past Drug Use History: None Reported - Past Family History Father Family Medical History: Myocardial Infarction (DC) Additional Family Medical History / Comment(s): emphysema General Exam Limitations: no limitations General appearance: alert, in no apparent distress, other (Disheveled appearance) Head exam: Present: atraumatic Eye exam: Present: conjunctival injection (With purulent discharge, mild, bilateral) ENT exam: Present: normal oropharynx Neck exam: Present: normal inspection Respiratory exam: Present: normal lung sounds bilaterally Cardiovascular Exam: Present: regular rate, normal rhythm GI/Abdominal exam: Present: soft. Absent: tenderness Extremities exam: Present: normal inspection Neurological exam: Present: alert, CN II-XII intact Expanded Patient oriented to: Present: person, place. Absent: time Speech: Present: expressive aphasia Motor strength exam: RUE: 5, LUE: 5, RLE: 3, LLE: 3 Eye Response: (4) open spontaneously Motor Response: (6) obeys commands Verbal Response: (4) confused conversation Psychiatric exam: Present: normal affect, normal mood Skin exam: Present: normal color Course Vital Signs 09/20/20 09/20/20 09/20/20 09:28 10:35 11:00 Temperature 97.6 F Pulse Rate 89 72 70 Respiratory 18 16 16 Rate Blood Pressure 141/100 147/99 124/83 O2 Sat by Pulse 95 96 96 Oximetry EKG Findings - EKG Comments: EKG Findings:: Sinus rhythm at 75. PVC is present. [place] 158. QRS 172. QTC 464. QTC 518. Left axis. Right bundle branch block. No acute ST change. Medical Decision Making - Medical Decision Making Patient reevaluated and updated. Case discussed in detail with Dr. Weaver who will admit covering for hospital call. He is familiar with this patient. Patient is not a TPA candidate secondary to onset greater than 4.5 hours. BNP will be added. - Lab Data Result diagrams: 09/20/20 10:18 09/20/20 10:18 Lab Results 09/20/20 09/20/20 09/20/20 Range/Units 10:18 10:18 10:18 WBC 7.7 (3.8-10.6) k/uL RBC 4.67 (4.30-5.90) m/uL Hgb 13.0 (13.0-17.5) gm/dL Hct 40.6 (39.0-53.0) % MCV 86.9 (80.0-100.0) fL MCH 27.9 (25.0-35.0) pg MCHC 32.1 (31.0-37.0) g/dL RDW 14.8 (11.5-15.5) % Plt Count 75 L (150-450) k/uL MPV 12.3 Neutrophils % 75 % Lymphocytes % 14 % Monocytes % 8 % Eosinophils % 1 % Basophils % 0 % Neutrophils # 5.8 (1.3-7.7) k/uL Lymphocytes # 1.1 (1.0-4.8) k/uL Monocytes # 0.6 (0-1.0) k/uL Eosinophils # 0.1 (0-0.7) k/uL Basophils # 0.0 (0-0.2) k/uL Manual Slide Review Performed PT 11.4 (9.0-12.0) sec INR 1.1 (<1.2) APTT 24.1 (22.0-30.0) sec Sodium 139 (137-145) mmol/L Potassium 4.1 (3.5-5.1) mmol/L Chloride 102 (98-107) mmol/L Carbon Dioxide 31 H (22-30) mmol/L Anion Gap 6 mmol/L BUN 32 H (9-20) mg/dL Creatinine 1.02 (0.66-1.25) mg/dL Est GFR (CKD-EPI)AfAm 76 (>60 ml/min/1.73 sqM) Est GFR (CKD-EPI)NonAf 66 (>60 ml/min/1.73 sqM) Glucose 103 H (74-99) mg/dL Calcium 8.6 (8.4-10.2) mg/dL Total Bilirubin 1.3 (0.2-1.3) mg/dL AST 23 (17-59) U/L ALT 13 (4-49) U/L Alkaline Phosphatase 91 (38-126) U/L Troponin I (0.000-0.034) ng/mL Total Protein 6.8 (6.3-8.2) g/dL Albumin 3.6 (3.5-5.0) g/dL 09/20/20 Range/Units 10:18 WBC (3.8-10.6) k/uL RBC (4.30-5.90) m/uL Hgb (13.0-17.5) gm/dL Hct (39.0-53.0) % MCV (80.0-100.0) fL MCH (25.0-35.0) pg MCHC (31.0-37.0) g/dL RDW (11.5-15.5) % Plt Count (150-450) k/uL MPV Neutrophils % % Lymphocytes % % Monocytes % % Eosinophils % % Basophils % % Neutrophils # (1.3-7.7) k/uL Lymphocytes # (1.0-4.8) k/uL Monocytes # (0-1.0) k/uL Eosinophils # (0-0.7) k/uL Basophils # (0-0.2) k/uL Manual Slide Review PT (9.0-12.0) sec INR (<1.2) APTT (22.0-30.0) sec Sodium (137-145) mmol/L Potassium (3.5-5.1) mmol/L Chloride (98-107) mmol/L Carbon Dioxide (22-30) mmol/L Anion Gap mmol/L BUN (9-20) mg/dL Creatinine (0.66-1.25) mg/dL Est GFR (CKD-EPI)AfAm (>60 ml/min/1.73 sqM) Est GFR (CKD-EPI)NonAf (>60 ml/min/1.73 sqM) Glucose (74-99) mg/dL Calcium (8.4-10.2) mg/dL Total Bilirubin (0.2-1.3) mg/dL AST (17-59) U/L ALT (4-49) U/L Alkaline Phosphatase (38-126) U/L Troponin I 0.042 H* (0.000-0.034) ng/mL Total Protein (6.3-8.2) g/dL Albumin (3.5-5.0) g/dL - Radiology Data Radiology results: report reviewed (CT scan the brain shows atrophy and chronic small vessel ischemia.), image reviewed (Chest x-ray: Correlate for CHF) Disposition Clinical Impression: CVA (cerebral vascular accident) Disposition: ADMITTED IP TO THIS HOSP Is patient prescribed a controlled substance at d/c from ED?: No Referrals: None,Stated [Primary Care Provider] - 1-2 days Decision Time: 11:58
[2020-09-20 10:31] LABS: Basophils % (A) 0 %; Eosinophils # (A) 0.1 k/uL (0-0.7); Eosinophils % (A) 1 %; HCT 40.6 % (39.0-53.0); Lymphocytes # (A) 1.1 k/uL (1.0-4.8); Lymphocytes % (A) 14 %; MCH 27.9 pg (25.0-35.0); MCHC 32.1 g/dL (31.0-37.0); MCV 86.9 fL (80.0-100.0); Mean Platelet Volume 12.3; Monocytes # (A) 0.6 k/uL (0-1.0); Monocytes % (A) 8 %; Neutrophils # (A) 5.8 k/uL (1.3-7.7); Neutrophils % (A) 75 %; RBC 4.67 m/uL (4.30-5.90); RDW 14.8 % (11.5-15.5); WBC 7.7 k/uL (3.8-10.6)
[2020-09-20 10:36] LABS: Albumin 3.6 g/dL (3.5-5.0); Calcium 8.6 mg/dL (8.4-10.2); INR 1.1 (<1.2); Partial Thromboplastin Time 24.1 sec (22.0-30.0); Potassium 4.1 mmol/L (3.5-5.1); Prothrombin Time 11.4 sec (9.0-12.0); Total Bilirubin 1.3 mg/dL (0.2-1.3); Total Protein 6.8 g/dL (6.3-8.2)
[2020-09-20 11:02] LABS: Platelet Count 75 k/uL (150-450)
--- NOTE | 2020-09-20 11:40 | CT ---
EXAMINATION TYPE: CT brain wo con DATE OF EXAM: 09/20/2020 COMPARISON: CT brain 11/18/2019 HISTORY: Neuro deficits CT DLP: 1063.4 mGycm Automated exposure control for dose reduction was used. Helical imaging through the brain. FINDINGS: There is no interval change. Cortical atrophy is present. There are basal ganglia calcifications. Cer ebral vascular calcifications are present. There is no hemorrhage or hydrocephalus. Periventricular w luz marina matter shows patchy low attenuation. The calvarium is intact. Mucosal disease present within the bilateral maxillary sinuses. 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 IMPRESSION: AGE-RELATED CHANGES OF ATROPHY AND CHRONIC SMALL VESSEL ISCHEMIA. CONSIDER BRAIN MRI FOR INCREASED SE NSITIVITY INDICATED.
--- NOTE | 2020-09-20 11:41 | XR ---
EXAMINATION TYPE: XR chest 2V DATE OF EXAM: 09/20/2020 COMPARISON: Chest x-ray 07/31/2020 HISTORY: Altered mental status, weakness, slurred speech, abnormal chest x-ray TECHNIQUE: Frontal and lateral views of the chest are obtained. FINDINGS: The heart is enlarged. There is prominence of interstitium and central vascularity as on p rior exam. There is no evident pneumothorax or sizable effusion. Aorta is dense. There are overlying leads. IMPRESSION: Correlate for congestive heart failure.
[2020-09-20] MEDS ORDERED: ASPIRIN 325 MG TAB PO STA (11:59)
[2020-09-20 12:39] LABS: Appearance,Urine Clear (Clear); Bilirubin,Urine Negative (Negative); Blood,Urine Negative (Negative); Color,Urine Light Yellow; Glucose,Urine (UA) Negative (Negative); Ketones,Urine Negative (Negative); Leukocyte Esterase,Urine Negative (Negative); Nitrite,Urine Negative (Negative); Protein,Urine Negative (Negative); Specific Gravity,Urine 1.008 (1.001-1.035); Urobilinogen,Urine <2.0 mg/dL (<2.0)
[2020-09-20] MEDS: SODIUM CHLORIDE 0.9% 1,000 ML IV SCH (12:40)
--- NOTE | 2020-09-20 13:38 | US ---
EXAMINATION TYPE: US carotid duplex BILAT DATE OF EXAM: 09/20/2020 COMPARISON: CT brain 09/20/2020 CLINICAL HISTORY: Stenosis. slurred speech, cerebrovascular disease, neuro deficit EXAM MEASUREMENTS: RIGHT: Peak Systolic Velocity (PSV) cm/sec ----- Right CCA: 53.3 ----- Right ICA: 90.5 ----- Right ECA: 34.8 ICA/CCA ratio: 1.7 RIGHT: End Diastole cm/sec ----- Right CCA: 7.0 ----- Right ICA: 32.2 ----- Right ECA: 6.3 LEFT: Peak Systolic Velocity (PSV) cm/sec ----- Left CCA: 51.6 ----- Left ICA: 73.2 ----- Left ECA: 67.1 ICA/CCA ratio: 1.4 LEFT: End Diastole cm/sec ----- Left CCA: 14.2 ----- Left ICA: 30.4 ----- Left ECA: 7.8 VERTEBRALS (direction of flow): Right Vertebral: Antegrade Left Vertebral: Antegrade Rhythm: Arrhythmia Grayscale, color Doppler, spectral Doppler imaging performed of the carotid arteries. Waveform analys is does not show significant stenosis of the proximal internal carotid arteries. Moderate to severe p laque bilateral bifurcations. IMPRESSION: No hemodynamic significant stenosis of the proximal internal carotid arteries by Doppler criteria, an indirect measurement of carotid stenosis Criteria for Assigning % of Stenosis / Diameter reduction (Estimation based on the indirect measurements of the internal carotid artery velocities (ICA PSV). 1. Normal (no stenosis)=ICA PSV < 125 cm/s: ratio < 2.0: ICA EDV<40 cm/s. 2. Less than 50% stenosis=ICA PSV < 125 cm/s: ratio < 2.0: ICA EDV<40 cm/s. 3. 50 to 69% stenosis=ICA PSV of 125 to 230 cm/s: ration 2.0 ? 4.0: ICA EDV 40-100 cm/s. 4. Greater than 70% stenosis to near occlusion= ICA PSV > 230 cm/s: ratio > 4.0: ICA EDV > 100 cm/s. 5. Near occlusion= ICA PSV velocities may be low or undetectable: variable ratio and ICA EDV. 6. Total occlusion=unable to detect flow.
[2020-09-20] MEDS ORDERED: ACETAMINOPHEN TAB 500 MG TAB PO PRN (18:10)
[2020-09-20] MEDS ORDERED: HYDROcodone/APAP 5-325MG 1 EACH TAB PO PRN (18:11)
[2020-09-20] MEDS ORDERED: ALPRAZolam 0.25 MG TAB PO PRN (18:11)
[2020-09-20] MEDS: carvediloL 6.25 MG TAB PO SCH (18:53)
[2020-09-20] MEDS: HEPARIN SODIUM,PORCINE/PF 5,000 UNIT/0.5 ML SYRINGE SQ SCH (20:31)
[2020-09-20] MEDS: ATORVASTATIN 40 MG TAB PO SCH (20:31)
--- NOTE | 2020-09-20 22:20 | HP ---
HISTORY AND PHYSICAL DATE OF SERVICE: 09/20/2020 CHIEF COMPLAINT: Weakness and slurring of speech. HISTORY OF PRESENT ILLNESS: This 89-year-old gentleman with a past medical history of multiple medical problems including CAD, CHF, diabetes, hypertension, DJD, was previously admitted with edema and other multiple medical problems. Currently the patient woke up today and the patient complaining of weakness. Patient had concerns of balance. The patient had slurring of speech and difficulty speech which has gradually become better. The patient came to [facility] and was admitted for further evaluation and treatment. Initial evaluation showed troponin elevated 0.042. Cardiology consultation in progress. Patient also had a full neurovascular workup including a CT scan of the brain showed age-related atrophy and chronic small-vessel ischemia. No acute abnormalities noted. There is no history of fever, rigors, chills at this time. PAST MEDICAL HISTORY: History of CAD, CHF, diabetes, hypertension, hyperlipidemia, history of DJD, history of obesity. MEDICATIONS: Home medications are: Zestril, vitamin B1, K-Dur, multivitamins, Lasix, folic acid, vitamin B12, Coreg. Lipitor, aspirin, Tylenol. ALLERGIES: None. FAMILY HISTORY: History of myocardial infarction and emphysema in the family. SOCIAL HISTORY: Previous history of smoking. No current smoking or alcohol intake. REVIEW OF SYSTEMS: ENT: Diminished vision. Diminished hearing. CARDIOVASCULAR: As mentioned earlier. RESPIRATORY: As mentioned earlier. GI: As mentioned earlier. : No dysuria. NERVOUS SYSTEM: No numbness, weakness. ALLERGY/IMMUNOLOGY: No asthma or hayfever. MUSCULOSKELETAL: As mentioned earlier. HEMATOLOGY/ONCOLOGY: No history of anemia. ENDOCRINE: No history of diabetes or hypothyroidism. CONSTITUTIONAL: As mentioned earlier. DERMATOLOGY: Negative. RHEUMATOLOGY: Negative. PSYCHIATRIC: As mentioned earlier. PHYSICAL EXAMINATION: Alert and oriented times three. Pulse 61. Blood pressure 117/84, respiration 18, temperature 97.4, pulse ox 96% on 2 L. HEENT: Conjunctivae normal. NECK: No JVD. CARDIOVASCULAR: S1, S2 muffled. RESPIRATORY: Breath sounds diminished in the bases. A few scattered rhonchi and crackles. ABDOMEN: Soft, obese, nontender. LEGS: No edema. No swelling. NERVOUS SYSTEM: Higher functions as mentioned earlier. Moves all limbs. No focal motor or sensory deficits. Speech is mild dysarthria present. LYMPHATICS: No lymph nodes palpable in the neck, axillae or groin. SKIN: No ulcer, no rash and no bleeding. JOINTS: No active deforming arthropathy. LABS: Platelets 75. The previous platelets also low. ASSESSMENT: 1. Weakness and slurring of speech, most likely acute transient ischemic attack involving the left hemisphere. 2. Thrombocytopenia. 3. Troponin 0.042. Rule out acute myocardial infarction. 4. History of coronary artery disease. 5. History of congestive heart failure. 6. Diabetes mellitus type 2. 7. Hypertension. 8. Hyperlipidemia. 9. History of degenerative joint disease. 10.Obesity with body mass of 34.5. 11.Remote history of nicotine dependence .. 12.NO CODE, NO CPR, NO VENT. RECOMMENDATIONS AND DISCUSSION: In this 89-year-old gentleman who presented with multiple complex medical issues, we will monitor the patient closely, continue the current medications, management and symptomatic treatment. We will obtain Neurology consultation. Complete neurovascular workup. Antiplatelet agents. Otherwise, resume the home medications. Guarded prognosis. Further recommendations to follow. Discussed with the patient who understands and agrees. Also obtain the PT/OT evaluation and assess the gait. See orders for details. MMODL / IJN: [id number] /
--- NOTE | 2020-09-21 02:28 | P.CNNES ---
History of Present Illness Consult date: 09/20/20 Requesting physician: Cornelius Saldaña Reason for Consult: CVA History of Present Illness: This is a tele-neurology consultation performed in this very pleasant 89-year-old male came to the hospital this morning at 9:21 AM came to the hospital for balance and speech problems. Symptoms started yesterday at around 9:30 PM. He was noted to be generalized weak more than usual. Also some report of slurred speech. There was no facial droop. According to the EMS flow sheet, when they arrive patient was sitting in the chair. Patient was alert and oriented 4. Patient is slurring his speech and complaining of generalized weakness. 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 Patient has mentioned that symptoms started last night around 9:30 PM. Patient was hypertensive. EKG showed sinus rhythm with occasional PVCs and possible right bundle branch block. Patient had several bedbugs on his person. Patient's blood pressure was 157/113, pulse 81, respiration 18 and saturation 95%. Patient's vitals on arrival blood pressure 141/100, pulse rate 89 temperature 97.6. Computed tomography scan of head showed age-related changes of atrophy and chronic small vessel ischemia. Consider brain MRI for increase sensitivity as indicated. Chest x-ray correlate for congestive heart failure EKG shows sinus rhythm with occasional PVCs and possible premature atrial complexes with aberrant conduction. Left axis deviation. Carotid Doppler showed no hemodynamically significant stenosis of the proximal ICAs. Antegrade flow in both vertebral arteries. Patient had a 2-D echocardiogram performed recently on 08/01/2020 in which the left ventricle is mildly dilated. Severe concentric LVH. Overall left ventricular systolic function is moderate to severely impaired with an EF between 30-35%. Right ventricle is severely enlarged. Moderate to severe calcification and sclerosis of the aortic valve. Patient's blood test shows normal CBC, platelets are low 75. PT/PTT is normal. Chem-7 is normal, BUN slightly elevated 32. Patient's last hemoglobin A1c 6.2 on 06/26/2014. Troponin is borderline 0.042 patient's previous cholesterol 182, LDL 135, HDL 33 and triglycerides 69 on 10/21/2019. UA is negative. Og virus PCR negative. Patient takes aspirin 81 mg, Lasix 40 mg, carvedilol 6.25 mg twice a day, potassium, B12 1000 g daily, Lipitor 40 mg, folic acid 1 mg, thiamine 100 mg, lisinopril 2.5 mg. Patient apparently lives in adult foster care. Patient since arrival to the ER, was given a bath because of bedbugs. Patient speech is at baseline. After getting food, he was appeared to be more stronger. He was able to sit by himself on the edge of the bed and 8 the lunch. At present his NIH stroke scale is 0. He is back to baseline. Patient has significantly swollen scrotum and has to be catheterized. Patient also states that he received first Og virus vaccination shot about 1-2 weeks ago, the first one. Afterwards he was slightly feeling swollen, headache weekend different doing things. Patient states he went to bed at 9 PM. He woke up at 10 minutes later and felt like his body was trapped inside a cocoon. Patient states that afterwards he managed to go to the bathroom, and fell in the bathroom, and was stuck on the floor. He called, no one came to check on him until the breakfast time. He feels so weak, that he couldn't do anything. He states that his quality of life his so affected that he just wants to sleep. Patient quit smoking 20 years ago. He smokes marijuana whenever he can get some. Not on a regular basis. Denies diabetes, is diet controlled. He denies hypertension. He uses walker, and lives by himself, no family. Review of Systems Patient does have some headache, states his eyesight is not as good. As me ntioned above in detail. All other review of systems reviewed and noncontributory. He does have some problem with urine. No incontinence of stools. Complains of abdominal bloating. Complains of some blurred vision. No dysphagia. Past Medical History Past Medical History: Coronary Artery Disease (CAD), Heart Failure, Diabetes Mellitus, Hyperlipidemia, Hypertension, Osteoarthritis (OA) Additional Past Medical History / Comment(s): obesity valley fever History of Any Multi-Drug Resistant Organisms: None Reported Additional Past Surgical History / Comment(s): lung surg Past Anesthesia/Blood Transfusion Reactions: No Reported Reaction Past Psychological History: No Psychological Hx Reported Smoking Status: Former smoker Past Alcohol Use History: Rare Past Drug Use History: None Reported - Past Family History Father Family Medical History: Myocardial Infarction (AR) Additional Family Medical History / Comment(s): emphysema Medications and Allergies Home Medications Medication Instructions Recorded Confirmed Type Aspirin 81 mg PO DAILY #100 chew 10/23/19 09/20/20 Rx Furosemide [Lasix] 40 mg PO BID@0900,1600 #60 tab 10/23/19 09/20/20 Rx Acetaminophen [Tylenol Arthritis] 650 mg PO Q6H PRN 07/31/20 09/20/20 History Atorvastatin [Lipitor] 40 mg PO HS 07/31/20 09/20/20 History Carvedilol [Coreg] 6.25 mg PO BID 07/31/20 09/20/20 History Cyanocobalamin (Vitamin B-12) 1,000 mcg PO DAILY 07/31/20 09/20/20 History [Vitamin B-12] Potassium Chloride ER [K-Dur 20] 20 meq PO DAILY 07/31/20 09/20/20 History Acetaminophen Tab [Tylenol] 500 mg PO Q6HR PRN tab 08/05/20 09/20/20 Rx Folic Acid 1 mg PO DAILY@1200 30 Days #30 tab 08/05/20 09/20/20 Rx Thiamine [Vitamin B-1] 100 mg PO DAILY@1200 30 Days #30 08/05/20 09/20/20 Rx tab lisinopriL [Zestril] 2.5 mg PO DAILY 30 Days #30 tab 08/05/20 09/20/20 Rx Multivitamins, Thera [Multivitamin 1 tab PO DAILY@1200 09/20/20 09/20/20 History (formulary)] Allergies Allergy/AdvReac Type Severity Reaction Status Date / Time No Known Allergies Allergy Verified 09/20/20 09:51 Physical Examination - Vital Signs Vital Signs: Vital Signs Temp Pulse Resp BP Pulse Ox 09/20/20 14:00 97.8 F 69 18 115/88 96 09/20/20 13:00 69 16 130/88 96 09/20/20 12:00 97.6 F 70 16 109/89 98 09/20/20 11:00 70 16 124/83 96 09/20/20 10:35 72 16 147/99 96 09/20/20 09:28 97.6 F 89 18 141/100 95 Intake and Output 09/20/20 09/20/20 09/20/20 06:59 14:59 22:59 Other: Weight 99.79 kg On examination patient is an elderly male, in no acute distress. Patient is alert and awake, very well oriented. He knows he is in [facility], his age 87 and that Mr. Amaya is the president. Speech is slightly hoarse, but no aphasia or dysarthria. On cranial examination pupils are round and reactive to light, visual kent are full on confrontation, extraocular muscles are intact with no nystagmus. Face is symmetric, tongue protrudes the midline. Palatal elevation sensation normal, hearing and shoulder shrug normal, facial sensation normal. On muscle strength testing there is no pronator drift. The strength is normal in both upper extremities distally and proximally. In the lower limbs his hip flexion is about 2+ to 3, knee extension is 4+ to 5-, ankle dorsiflexion 4+. Deep tendon reflexes are almost absent. Plantars are downgoing. Sensory to touch is equal with no neglect. No ataxia for [id number] testing. Cannot check [id number] testing. Patient has positive peripheral edema. He has some old healed cellulitis. Gait was deferred. Abdomen is protuberant. He has swollen scrotum. No obvious bruit, S1 and S2 audible. Results - Laboratory Findings CBC and BMP: 09/20/20 10:18 09/20/20 10:18 Abnormal Lab Findings: Abnormal Labs 09/20/20 09/20/20 09/20/20 10:18 10:18 10:18 Plt Count 75 L Carbon Dioxide 31 H BUN 32 H Glucose 103 H Troponin I 0.042 H* Assessment and Plan Assessment: * 89-year-old male admitted with episode of possible slurred speech, fall, with inability to get up. Rule out TIA. * Hypertension * Borderline diabetes * Obesity * Bedbug infestation Plan: * Patient underwent carotid Doppler, which revealed no hemodynamic significant stenosis of the proximal ICA. Antegrade flow in both vertebral artery. * Await 2-D echo. * Continue aspirin 325 mg daily and Lipitor 40 mg. * Check hemoglobin A1c, fasting lipid panel. B12, folate. * We will follow.
[2020-09-21] MEDS: SODIUM CHLORIDE 0.9% 1,000 ML IV SCH (04:15)
[2020-09-21] MEDS: PANTOPRAZOLE 40 MG TABLET PO SCH (06:19)
[2020-09-21] MEDS: carvediloL 6.25 MG TAB PO SCH ×2 (06:20→17:27)
[2020-09-21] MEDS: FUROSEMIDE 40 MG TAB PO SCH ×2 (08:21→17:26)
[2020-09-21] MEDS: POTASSIUM CHLORIDE ER 20 MEQ TAB.ER PO SCH (08:21)
[2020-09-21] MEDS: ASPIRIN 325 MG TAB PO SCH (08:21)
[2020-09-21] MEDS: THIAMINE 100 MG TAB PO SCH (08:21)
[2020-09-21] MEDS: MULTIVITAMINS, THERA 1 EACH TAB PO SCH (08:21)
[2020-09-21] MEDS: HEPARIN SODIUM,PORCINE/PF 5,000 UNIT/0.5 ML SYRINGE SQ SCH ×2 (08:21→20:31)
[2020-09-21] MEDS: CYANOCOBALAMIN 500 MCG TAB PO SCH (08:22)
[2020-09-21] MEDS: FOLIC ACID 1 MG TAB PO SCH (08:22)
[2020-09-21 08:56] LABS: Basophils % (A) 0 %; Eosinophils # (A) 0.2 k/uL (0-0.7); Eosinophils % (A) 2 %; HCT 39.1 % (39.0-53.0); HGB 12.5 gm/dL (13.0-17.5); Lymphocytes # (A) 1.1 k/uL (1.0-4.8); Lymphocytes % (A) 16 %; MCH 28.1 pg (25.0-35.0); MCHC 31.9 g/dL (31.0-37.0); MCV 88.2 fL (80.0-100.0); Mean Platelet Volume 11.5; Monocytes # (A) 0.5 k/uL (0-1.0); Monocytes % (A) 8 %; Neutrophils % (A) 72 %; RBC 4.43 m/uL (4.30-5.90); RDW 14.7 % (11.5-15.5)
[2020-09-21 09:11] LABS: Platelet Count 89 k/uL (150-450)
[2020-09-21 09:59] LABS: Albumin 3.3 g/dL (3.5-5.0); Calcium 8.5 mg/dL (8.4-10.2); Total Bilirubin 1.4 mg/dL (0.2-1.3); Total Protein 6.4 g/dL (6.3-8.2)
--- NOTE | 2020-09-21 15:35 | PN ---
PROGRESS NOTE DATE OF SERVICE: 09/21/2020 This 89-year-old gentleman was admitted with confusion and weakness, suspected of acute transient ischemic attack. The patient had neurology evaluation. Neurology is following the patient closely. The confusion has improved significantly. A carotid Doppler study was done which showed no evidence of any hemodynamic stenosis. PHYSICAL EXAM: Patient is alert, oriented x2. Pulse is 67, blood pressure 120/159, respiration 18, temperature 98.2, pulse ox 98% on 2 L. HEENT: Conjunctivae normal. Oral mucosa moist. NECK: No jugular venous distention. No lymph node enlargement. CARDIOVASCULAR: S1, S2, muffled. No S3, no S4, RESPIRATORY: Diminished breath sounds at the bases. Bilateral scattered rhonchi and crackles. ABDOMEN: Soft, nontender. LEGS: No edema, no swelling. NERVOUS SYSTEM: Diffusely weak. LABS: WBC 7, hemoglobin 12.5. COVID-19 is negative. ASSESSMENT: 1. Weakness and slurring of speech, most likely acute transient ischemic attack involving the left hemisphere. 2. Thrombocytopenia. 3. Troponin 0.014, rule out acute myocardial infarction. 4. History of coronary artery disease. 5. History of congestive heart failure. 6. Diabetes mellitus type 2. 7. Hypertension. 8. Hyperlipidemia. 9. History of degenerative joint disease. 10.Obesity with body mass of 34.8. 11.Remote history of nicotine dependence. 12.NO CODE, NO CPR, NO VENT. RECOMMENDATIONS AND DISCUSSION: Recommend to continue current management, continue current medications, continue to monitor and continue symptomatic treatment. Otherwise, at this time I would follow the patient closely with Neurology. Guarded prognosis because of multiple complex medical issues. Further recommendations to follow. MMODL / IJN: [id number] /
[2020-09-21] MEDS: ATORVASTATIN 40 MG TAB PO SCH (20:31)
--- NOTE | 2020-09-21 23:30 | P.PN ---
Subjective Progress Note Date: 09/21/20 This is a tele-Neurology follow-up performed on the patient. Patient was sleeping at this time. Patient on waking up, offers no complaints. No pain, no headache. No further syncopal spells. Objective - Vital Signs Vital signs: Vital Signs Temp 97.7 F 09/21/20 19:36 Pulse 76 09/21/20 19:36 Resp 15 09/21/20 19:36 BP 118/67 09/21/20 19:36 Pulse Ox 98 09/21/20 19:36 Intake & Output 09/21/20 09/21/20 09/22/20 06:59 18:59 06:59 Intake Total 610 Output Total 1 1 Balance -1 609 Weight 80 kg Intake: Oral 610 Output: Stool 1 1 Other: Voiding Method Urinal Urinal # Voids 1 2 # Bowel Movements 1 - Exam Patient is alert and awake, in no distress. Detail testing deferred. - Labs CBC & Chem 7: 09/21/20 08:07 09/21/20 08:07 Labs: Abnormal Lab Results - Last 24 Hours (Table) 09/21/20 09/21/20 Range/Units 08:07 08:07 Hgb 12.5 L (13.0-17.5) gm/dL Plt Count 89 L (150-450) k/uL BUN 30 H (9-20) mg/dL Glucose 113 H (74-99) mg/dL Total Bilirubin 1.4 H (0.2-1.3) mg/dL Albumin 3.3 L (3.5-5.0) g/dL HDL Cholesterol 29 L (40-60) mg/dL Assessment and Plan Assessment: * 89-year-old male admitted with episode of possible slurred speech, fall, with inability to get up. Rule out TIA. * Hypertension * Borderline diabetes * Obesity * Bedbug infestation Plan: * Patient underwent carotid Doppler, which revealed no hemodynamic significant stenosis of the proximal ICA. Antegrade flow in both vertebral artery. * Await 2-D echo. * Continue aspirin 325 mg daily and Lipitor 40 mg. * Check hemoglobin A1c B12, folate. * Lipid panel showed cholesterol 101, LDL 58, HDL 29, triglycerides 69. TSH 1.93. * Continue telemetry monitoring. * PT and OT evaluate gait.
[2020-09-22 04:25] VITALS: RESP 18
[2020-09-22] MEDS: carvediloL 6.25 MG TAB PO SCH ×2 (06:19→17:23)
[2020-09-22] MEDS: PANTOPRAZOLE 40 MG TABLET PO SCH (06:19)
[2020-09-22] MEDS: ASPIRIN 325 MG TAB PO SCH (09:26)
[2020-09-22] MEDS: SODIUM CHLORIDE 0.9% 1,000 ML IV SCH ×2 (09:26→21:06)
[2020-09-22] MEDS: CYANOCOBALAMIN 500 MCG TAB PO SCH (09:26)
[2020-09-22] MEDS: FUROSEMIDE 40 MG TAB PO SCH ×2 (09:27→17:24)
[2020-09-22] MEDS: POTASSIUM CHLORIDE ER 20 MEQ TAB.ER PO SCH (09:27)
[2020-09-22] MEDS: HEPARIN SODIUM,PORCINE/PF 5,000 UNIT/0.5 ML SYRINGE SQ SCH ×2 (09:27→20:17)
[2020-09-22] MEDS: THIAMINE 100 MG TAB PO SCH (12:56)
[2020-09-22] MEDS: FOLIC ACID 1 MG TAB PO SCH (12:56)
[2020-09-22] MEDS: MULTIVITAMINS, THERA 1 EACH TAB PO SCH (12:56)
[2020-09-22 15:22] LABS: Folate, Serum 17.1 ng/mL
--- NOTE | 2020-09-22 18:13 | PN ---
PROGRESS NOTE DATE OF SERVICE: 09/22/2020 This 89-year-old gentleman who was admitted with weakness and slurring of speech was thought to have TIA. The patient is being closely monitored. No chest pain. No palpitations. No fever. The sensorium is slightly improved. PHYSICAL EXAMINATION: Alert and oriented x2. Pulse 74, blood pressure 100/60, respiration 18, temperature 98.2, pulse ox 98% on 2 L. HEENT: Conjunctivae normal. NECK: No jugular venous distention. CARDIOVASCULAR SYSTEM: S1, S2 muffled. RESPIRATORY SYSTEM: Breath sounds diminished at the bases. Scattered rhonchi. ABDOMEN: Soft, non-tender. LEGS: No edema. No swelling. NERVOUS SYSTEM: No focal deficit. LABS: WBC 7, hemoglobin 12.5, sodium 140. ASSESSMENT: 1. Weakness and slurring of speech, most likely acute transient ischemic attack involving the left hemisphere. 2. Thrombocytopenia. 3. Troponin 0.014, indeterminate origin. 4. History of coronary artery disease. 5. History of congestive heart failure. 6. Change in mental status, acute metabolic encephalopathy. 7. Diabetes mellitus, type 2. 8. Hypertension. 9. Hyperlipidemia. 10.History of degenerative joint disease. 11.Obesity with body mass index of 34.6. 12.Remote history of nicotine dependence. 13.NO CODE, NO CPR, NO VENT. RECOMMENDATIONS AND DISCUSSION: I recommend to continue current medications, continue with the monitoring, symptomatic treatment. Continue with antiplatelet agents. Otherwise, closely follow. PT/OT evaluation. Increase ambulation. Possible ECF rehab. Guarded prognosis. Further recommendations to follow. MMODL / IJN: [id number] /
[2020-09-22] MEDS: ATORVASTATIN 40 MG TAB PO SCH (20:17)
[2020-09-22 21:22] LABS: Hemoglobin A1C 5.4 % (4.0-6.0)
--- NOTE | 2020-09-23 00:53 | P.PN ---
Subjective Progress Note Date: 09/22/20 Patient was seen for a follow-up. Patient is alert and awake. Offers no complaints. No further syncopal spells. Denies any headache problem with the vision. Objective - Vital Signs Vital signs: Vital Signs Temp 98.9 F 09/22/20 15:30 Pulse 74 09/22/20 15:30 Resp 18 09/22/20 15:30 BP 105/60 09/22/20 15:30 Pulse Ox 98 09/22/20 15:30 Intake & Output 09/22/20 09/22/20 09/23/20 06:59 18:59 06:59 Intake Total 480 360 Output Total 251 252 Balance -251 228 360 Weight 121.5 kg Intake: Oral 480 360 Output: Urine 250 250 Stool 1 2 Other: Voiding Method Urinal Bedside Commode Urinal # Voids 1 - Exam Patient is alert and awake, in no distress. Patient's mental status, speech and language functions are normal. Patient's visual kent are full. Face is symmetric. Pupils are round and reacting to light. Extraocular muscles intact. Tongue protrudes to the midline. On muscle strength testing there is no prona tor drift and the strength is completely normal in arms and legs distally and proximally. Reflexes are trace in the upper limbs, trace in the lower limbs. Sensory to touch is equal with no neglect. No ataxia for [id number] testing. Tone and bulk of muscles normal. - Labs CBC & Chem 7: 09/21/20 08:07 09/21/20 08:07 Assessment and Plan Assessment: * 89-year-old male admitted with episode of possible slurred speech, fall, with inability to get up. Rule out TIA. * Hypertension * Borderline diabetes * Obesity * Bedbug infestation Plan: * Carotid Doppler, which revealed no hemodynamic significant stenosis of the proximal ICA. Antegrade flow in both vertebral artery. * 2-D echo completed, results pending. * Continue aspirin 325 mg daily and Lipitor 40 mg. * Hemoglobin A1c 5.4 normal, B12 525, folate 17.1. * Lipid panel showed cholesterol 101, LDL 58, HDL 29, triglycerides 69. TSH 1.93. * Continue aspirin 325 mg daily and Lipitor 40 mg. * Continue telemetry monitoring. * PT and OT evaluate gait. * Dr. Saul Bocanegra to resume neurology service from am.
[2020-09-23] MEDS: PANTOPRAZOLE 40 MG TABLET PO SCH (06:30)
[2020-09-23] MEDS: carvediloL 6.25 MG TAB PO SCH (06:30)
[2020-09-23] MEDS: POTASSIUM CHLORIDE ER 20 MEQ TAB.ER PO SCH (08:53)
[2020-09-23] MEDS: ASPIRIN 325 MG TAB PO SCH (08:53)
[2020-09-23] MEDS: FUROSEMIDE 40 MG TAB PO SCH (08:53)
[2020-09-23] MEDS: CYANOCOBALAMIN 500 MCG TAB PO SCH (08:53)
[2020-09-23] MEDS: HEPARIN SODIUM,PORCINE/PF 5,000 UNIT/0.5 ML SYRINGE SQ SCH (08:54)
--- NOTE | 2020-09-23 10:29 | P.DS ---
Providers Date of admission: 09/20/20 11:59 Attending physician: Erica Weaver Consults: 09/20/20 12:00 Consult Physician Urgent Consulting Provider: Katie Mosley Consult Reason/Comments: cva Do you want consulting provider notified?: Yes Primary care physician: Stated None Hospital Course: 89-year-old male was admitted after slurred speech and for workup of her TIA. All the workup is negative echo cardiac exam is still pending once echocardiogram results are back patient will be discharged. Patient doesn't have any other weakness, TIA cannot be ruled out or ruled in. Neurology is recommending aspirin and Plavix for 21 days and after 21 days aspirin can be discontinued and continue on Plavix. Patient was also treated for heart failure presently euvolemic patient is on oral Lasix at this time patient had ejection fraction of around 30-35%. Carotid Doppler did not show any significant abnormality. Patient had falls at home patient blood pressure is low normal at this time because of which I'm changing Coreg to metoprolol. Patient is also on lisinopril which is being continued for now but if his blood pressure remains low probably lisinopril need to be discontinued if he continues to have falls. PHYSICAL EXAMINATION: GENERAL: The patient is alert and oriented x2-3, not in any acute distress. Obese HEENT: Pupils are round and equally reacting to light. EOMI. No scleral icterus. No conjunctival pallor. Normocephalic, atraumatic. No pharyngeal erythema. No thyromegaly. CARDIOVASCULAR: S1 and S2 present. No murmurs, rubs, or gallops. PULMONARY: Chest is clear to auscultation, no wheezing or crackles. ABDOMEN: Soft, nontender, nondistended, normoactive bowel sounds. No palpable organomegaly. MUSCULOSKELETAL: No joint swelling or deformity. EXTREMITIES: No cyanosis, clubbing, or pedal edema. NEUROLOGICAL: Gross neurological examination did not reveal any focal deficits. Advised weakness SKIN: No rashes. -Workup for TIA -Congestive heart failure chronic systolic dysfunction with acute exacerbation, presently euvolemic. Patient the EF is presently 30-35% . -History of coronary artery disease -Type 2 diabetes mellitus blood sugars are bit elevated but and if his medications can be titrated as an outpatient -hypertension -Hyperlipidemia For rest of the chronic medical problems please refer to progress note from Dr. Weaver from yesterday Plan - Discharge Summary Discharge Rx Participant: No New Discharge Prescriptions: New Clopidogrel Bisulfate [Plavix] 75 mg PO DAILY #30 tab Metoprolol Tartrate [Lopressor] 25 mg PO BID #10 tablet Continue Aspirin 81 mg PO DAILY #100 chew Furosemide [Lasix] 40 mg PO BID@0900,1600 #60 tab Acetaminophen [Tylenol Arthritis] 650 mg PO Q6H PRN PRN Reason: Pain Potassium Chloride ER [K-Dur 20] 20 meq PO DAILY Cyanocobalamin (Vitamin B-12) [Vitamin B-12] 1,000 mcg PO DAILY Atorvastatin [Lipitor] 40 mg PO HS Folic Acid 1 mg PO DAILY@1200 30 Days #30 tab Acetaminophen Tab [Tylenol] 500 mg PO Q6HR PRN tab PRN Reason: Fever And/ Or Pain Thiamine [Vitamin B-1] 100 mg PO DAILY@1200 30 Days #30 tab lisinopriL [Zestril] 2.5 mg PO DAILY 30 Days #30 tab Multivitamins, Thera [Multivitamin (formulary)] 1 tab PO DAILY@1200 Discontinued Carvedilol [Coreg] 6.25 mg PO BID Discharge Medication List Aspirin 81 mg PO DAILY #100 chew 10/23/19 [Rx] Furosemide [Lasix] 40 mg PO BID@0900,1600 #60 tab 10/23/19 [Rx] Acetaminophen [Tylenol Arthritis] 650 mg PO Q6H PRN 07/31/20 [History] Atorvastatin [Lipitor] 40 mg PO HS 07/31/20 [History] Cyanocobalamin (Vitamin B-12) [Vitamin B-12] 1,000 mcg PO DAILY 07/31/20 [History] Potassium Chloride ER [K-Dur 20] 20 meq PO DAILY 07/31/20 [History] Acetaminophen Tab [Tylenol] 500 mg PO Q6HR PRN tab 08/05/20 [Rx] Folic Acid 1 mg PO DAILY@1200 30 Days #30 tab 08/05/20 [Rx] Thiamine [Vitamin B-1] 100 mg PO DAILY@1200 30 Days #30 tab 08/05/20 [Rx] lisinopriL [Zestril] 2.5 mg PO DAILY 30 Days #30 tab 08/05/20 [Rx] Multivitamins, Thera [Multivitamin (formulary)] 1 tab PO DAILY@1200 09/20/20 [History] Clopidogrel Bisulfate [Plavix] 75 mg PO DAILY #30 tab 09/23/20 [Rx] Metoprolol Tartrate [Lopressor] 25 mg PO BID #10 tablet 09/23/20 [Rx] Follow up Appointment(s)/Referral(s): Abdulaziz Durán MD [STAFF PHYSICIAN] - 1 Week Discharge Disposition: TRANSFER TO SNF/ECF
[2020-09-23 11:10] VITALS: TEMP 97.9
[2020-09-23] MEDS: THIAMINE 100 MG TAB PO SCH (13:18)
[2020-09-23] MEDS: MULTIVITAMINS, THERA 1 EACH TAB PO SCH (13:18)
[2020-09-23] MEDS: FOLIC ACID 1 MG TAB PO SCH (13:18)
[2020-09-23 16:25] VITALS: BP 103/58; PULSE 59
--- NOTE | 2020-09-25 11:39 | ECHOF ---
Referral Reason:Thrombus MEASUREMENTS -------- HEIGHT: 170.2 cm WEIGHT: 99.8 kg BP: 109/89 IVSd: 1.4 cm (0.6 - 1.1) LVIDd: 4.9 cm (3.9 - 5.3) LVPWd: 1.4 cm (0.6 - 1.1) IVSs: 1.9 cm LVIDs: 4.2 cm LVPWs: 1.6 cm FINDINGS -------- Sinus rhythm. This was a technically difficult study with suboptimal views. Limited Study The left ventricular size is normal. There is moderate concentric left ventricular hypertrophy. O verall left ventricular systolic function is moderate-severely impaired with, an EF between 30 - 35 % . Doppler images obtained with bubbles which may alter degree of regurgitation. Would recommend repeat study without bubbles if regurgitation of concern. Doppler images obtained with bubbles which may alter degree of regurgitation. Would recommend repeat study without bubbles if regurgitation of concern. Doppler images obtained with bubbles which may alter degree of regurgitation. Would recommend repeat study without bubbles if regurgitation of concern. There is a small, generalized pericardial effusion present. CONCLUSIONS -------- 1. The left ventricular size is normal. 2. There is moderate concentric left ventricular hypertrophy. 3. Overall left ventricular systolic function is moderate-severely impaired with, an EF between 30 - 35 %. 4. There is a small, generalized pericardial effusion present. TABLE TENDER: Bryanna Seals, [facility]
== END 2020-09-23 16:34 | DRG 69 ==
LOC: EC 09:21 → 3SCARD 11:59
PROVIDERS: ADMIT Hospitalist; ATTEND Hospitalist
DX: G45.9 Transient cerebral ischemic attack, unspecified (principal); G93.41 Metabolic encephalopathy; I50.23 Acute on chronic systolic (congestive) heart failure; Z20.822 Contact with and (suspected) exposure to COVID-19; B88.8 Other specified infestations; D69.6 Thrombocytopenia, unspecified; E11.65 Type 2 diabetes mellitus with hyperglycemia; R79.89 Other specified abnormal findings of blood chemistry; Z91.81 History of falling; R29.6 Repeated falls; E66.9 Obesity, unspecified; E78.5 Hyperlipidemia, unspecified; I11.0 Hypertensive heart disease with heart failure; I25.10 Atherosclerotic heart disease of native coronary artery without angina pectoris; I49.3 Ventricular premature depolarization; M19.90 Unspecified osteoarthritis, unspecified site; R47.81 Slurred speech; N50.89 Other specified disorders of the male genital organs; Z68.34 Body mass index [BMI] 34.0-34.9, adult; Z79.82 Long term (current) use of aspirin; Z79.899 Other long term (current) drug therapy; Z82.49 Family history of ischemic heart disease and other diseases of the circulatory system; Z82.5 Family history of asthma and other chronic lower respiratory diseases; Z87.891 Personal history of nicotine dependence; I45.10 Unspecified right bundle-branch block; Z60.2 Problems related to living alone; Z66 Do not resuscitate
CPT/HCPCS: 36415; 70450; 71046; 80053; 80061; 81003; 82607; 82746; 83036; 83880; 84484; 85025; 85610; 85730; 87635; 93005; 93308; 93880; 99285

== ENCOUNTER 2022-05-29 10:42 | Inpatient (IN) | payer MEDICARE, OTHER ==
[2022-05-29 11:26] LABS: INR 1.1 (<1.2); Partial Thromboplastin Time 26.3 sec (22.0-30.0); Prothrombin Time 11.2 sec (9.0-12.0)
[2022-05-29 11:31] LABS: Basophils # (A) 0.1 k/uL (0-0.2); Basophils % (A) 1 %; Eosinophils % (A) 0 %; HCT 41.8 % (39.0-53.0); HGB 13.7 gm/dL (13.0-17.5); Hypochromasia Slight; Lymphocytes # (A) 0.8 k/uL (1.0-4.8); Lymphocytes % (A) 6 %; MCH 29.4 pg (25.0-35.0); MCHC 32.9 g/dL (31.0-37.0); MCV 89.4 fL (80.0-100.0); Mean Platelet Volume 10.3; Monocytes % (A) 9 %; Neutrophils # (A) 9.9 k/uL (1.3-7.7); Neutrophils % (A) 81 %; Platelet Count 162 k/uL (150-450); RBC 4.68 m/uL (4.30-5.90); RDW 13.6 % (11.5-15.5); WBC 12.3 k/uL (3.8-10.6)
--- NOTE | 2022-05-29 11:36 | XR ---
EXAMINATION TYPE: XR chest 2V DATE OF EXAM: 05/29/2022 11:32 AM COMPARISON: Chest radiographs from TECHNIQUE: XR chest 2V Frontal and lateral views of the chest. CLINICAL INDICATION:Male, 89 years old with history of difficulty breathing; FINDINGS: Lungs/Pleura: No evidence of focal consolidation or pneumothorax. Blunting of the costophrenic angles is present. Pulmonary vascularity: Pulmonary vascular congestion. Heart/mediastinum: Cardiomediastinal silhouette is enlarged and stable. Musculoskeletal: No acute osseous pathology. IMPRESSION: Cardiomegaly, pulmonary vascular congestion and bilateral pleural effusions. Correlate with BNP for c ongestive heart failure.
[2022-05-29 11:40] LABS: Albumin 3.6 g/dL (3.5-5.0); Calcium 8.1 mg/dL (8.4-10.2); Potassium 5.6 mmol/L (3.5-5.1); Total Bilirubin 0.9 mg/dL (0.2-1.3); Total Protein 6.8 g/dL (6.3-8.2)
[2022-05-29 11:49] LABS: ABG Base Excess 1.8 mmol/L; ABG HCO3 30 mmol/L (21-25); ABG Oxygen Saturation 93.9 % (94-97); ABG PO2 81 mmHg (83-108); ABG TCO2 32 mmol/L (19-24); Allen Test Performed? Yes
[2022-05-29 11:50] LABS: ABG PCO2 78 mmHg (35-45); ABG PH 7.19 (7.35-7.45)
[2022-05-29] MEDS ORDERED: FUROSEMIDE 10 MG/ML 10 ML VIAL IV STA (12:57)
[2022-05-29] MEDS ORDERED: NALOXONE 0.4 MG/ML 1 ML VIAL IV PRN (12:58)
[2022-05-29] MEDS ORDERED: LORazepam 2 MG/ML INJ IV STA (13:18)
--- NOTE | 2022-05-29 13:18 | ED ---
SOB HPI - General Chief Complaint: Shortness of Breath Stated Complaint: Altered, low oxygen Time Seen by Provider: 05/29/22 10:50 Source: EMS Mode of arrival: EMS Limitations: no limitations - History of Present Illness Initial Comments: 89-year-old male with past medical history of coronary artery disease, congestive heart failure, diabetes, COPD who presents to the emergency department with worsening shortness of breath. Patient resides at [facility]. He has had worsening shortness of breath for the past 2 days. He was placed on antibiotics and oxygen by the nursing facility without any improvement in his symptoms. Today EMS states that they were called to the facility for a man that was not responsive. They arrived and found the patient cyanotic. They state that he had no lung exchange. They gave the patient's 2 albuterol and 1 ipratropium treatments. They additionally gave him 125 of Solu-Medrol. Patient became more alert. End title was 65. Patient arrives lethargic. He will arouse to verbal stimuli. Denies being any pain. He cannot provide any history. No other alleviating, precipitating or moifying factors - Related Data Home Medications Medication Instructions Recorded Confirmed Acetaminophen [Tylenol Arthritis] 650 mg PO Q6H PRN 07/31/20 05/29/22 Atorvastatin [Lipitor] 40 mg PO HS 07/31/20 05/29/22 Cyanocobalamin (Vitamin B-12) 1,000 mcg PO DAILY 07/31/20 05/29/22 [Vitamin B-12] Potassium Chloride ER [K-Dur 20] 20 meq PO DAILY 07/31/20 05/29/22 Multivitamins, Thera [Multivitamin 1 tab PO DAILY 09/20/20 05/29/22 (formulary)] Acetaminophen Tab [Tylenol] 650 mg PO BID 05/29/22 05/29/22 Albuterol Nebulized [Ventolin 2.5 mg INHALATION RT-Q4H 05/29/22 05/29/22 Nebulized] Amoxic-Pot Clav 875-125Mg 1 tab PO Q12HR 05/29/22 05/29/22 [Augmentin 875-125] Cholecalciferol [Vitamin D3 (25 50 mcg PO DAILY 05/29/22 05/29/22 Mcg = 1000 Iu)] Fluticasone Nasal [place] [Flonase 1 spray EA NOSTRIL DAILY@0800 05/29/22 05/29/22 Nasal [place]] Folic Acid 0.8 mg PO DAILY@0800 05/29/22 05/29/22 Furosemide [Lasix] 40 mg PO BID@0700,1600 PRN 05/29/22 05/29/22 Gabapentin 300 mg PO HS 05/29/22 05/29/22 LORazepam [Ativan] 0.5 mg PO HS 05/29/22 05/29/22 Loratadine 10 mg PO DAILY 05/29/22 05/29/22 Melatonin 5 mg PO HS PRN 05/29/22 05/29/22 Menthol [Biofreeze] 1 applic TOPICAL Q8H PRN 05/29/22 05/29/22 Thiamine [Vitamin B-1] 100 mg PO DAILY 05/29/22 05/29/22 guaiFENesin [guaiFENesin ER] 600 mg PO BID@0800,2000 05/29/22 05/29/22 guaiFENesin [guaiFENesin Oral 10 mg PO Q6H PRN 05/29/22 05/29/22 Solution] metFORMIN HCL 500 mg PO DAILY 05/29/22 05/29/22 traMADol HCL 50 mg PO Q8H PRN 05/29/22 05/29/22 Previous Rx's Medication Instructions Recorded Aspirin 81 mg PO DAILY #100 chew 10/23/19 Clopidogrel Bisulfate [Plavix] 75 mg PO DAILY #30 tab 09/23/20 Allergies Allergy/AdvReac Type Severity Reaction Status Date / Time No Known Allergies Allergy Verified 05/29/22 11:33 Review of Systems ROS Statement: Those systems with pertinent positive or pertinent negative responses have been documented in the HPI. ROS Other: All systems not noted in ROS Statement are negative. Past Medical History Past Medical History: Coronary Artery Disease (CAD), Heart Failure, Diabetes Mellitus, Hyperlipidemia, Hypertension, Osteoarthritis (OA) Additional Past Medical History / Comment(s): obesity [place] fever History of Any Multi-Drug Resistant Organisms: None Reported Additional Past Surgical History / Comment(s): lung surg Past Anesthesia/Blood Transfusion Reactions: No Reported Reaction Past Psychological History: No Psychological Hx Reported Smoking Status: Former smoker Past Alcohol Use History: Rare Past Drug Use History: None Reported - Past Family History Father Family Medical History: Myocardial Infarction ([place]) Additional Family Medical History / Comment(s): emphysema General Exam Limitations: altered mental status General appearance: lethargic Head exam: Present: atraumatic, normocephalic, normal inspection Eye exam: Present: normal appearance, PERRL, EOMI. Absent: scleral icterus, conjunctival injection, periorbital swelling ENT exam: Present: mucous membranes dry Respiratory exam: Present: respiratory distress, accessory muscle use, decreased breath sounds Cardiovascular Exam: Present: regular rate, normal rhythm, normal heart sounds. Absent: systolic murmur, diastolic murmur, rubs, gallop, clicks GI/Abdominal exam: Present: soft, normal bowel sounds, other (large obese abdomen). Absent: distended, tenderness, guarding, rebound, rigid Extremities exam: Present: normal inspection, full ROM, normal capillary refill, pedal edema. Absent: tenderness, joint swelling, calf tenderness Neurological exam: Present: altered Psychiatric exam: Present: flat affect Skin exam: Present: warm, dry, intact, normal color. Absent: rash Course Vital Signs 05/29/22 05/29/22 05/29/22 10:47 10:48 12:02 Temperature 97.8 F Pulse Rate 89 90 Respiratory 18 Rate Blood Pressure 131/66 131/66 O2 Sat by Pulse 96 Oximetry Fraction of 50 Inspired Oxygen (FIO2) 05/29/22 05/29/22 05/29/22 12:55 14:42 15:32 Temperature Pulse Rate 86 86 Respiratory 20 Rate Blood Pressure 101/56 150/117 O2 Sat by Pulse 94 L 97 Oximetry Fraction of 50 Inspired Oxygen (FIO2) 05/29/22 05/29/22 05/29/22 15:37 18:49 19:09 Temperature 98 F Pulse Rate 87 81 82 Respiratory 24 22 Rate Blood Pressure 109/77 100/61 O2 Sat by Pulse 96 94 L Oximetry Fraction of 50 Inspired Oxygen (FIO2) 05/29/22 19:22 Temperature Pulse Rate 83 Respiratory Rate Blood Pressure O2 Sat by Pulse Oximetry Fraction of Inspired Oxygen (FIO2) Procedures - ABG Interpretation Ph: 7.19 PCO2: 78.4 PO2: 80.6 Bicarbonate: 30 Interpretation: respiratory acidosis Medical Decision Making - Medical Decision Making Upon arrival the patient was placed into room 6. A thorough history and physical exam was performed. Patient placed on continuous pulse ox and cardiac monitoring. 12-lead EKG was obtained. Portable chest x-ray was performed. Laboratory studies are conducted. I did perform an ABG which demonstrates the patient's CO2 to be 78. Troponin is 0.062. BNP 23,300. Chest x-ray demonstrates cardiomegaly, pulmonary vascular congestion and bilateral pleural effusions. Patient is placed on a BiPAP due to the abnormal ABG results. Repeat ABG to be drawn in 2 hours. Patient does had significant difficulty keeping the mask on. Repeat ABG demonstrates that the patient's CO2 has gone up. He is repositioned in bed and respiratory rate is increased. Patient is a DO NOT RESUSCITATE and therefore we will manipulate BiPAP settings as needed. He was given a dose of Lasix. Spoke with Dr. Rodriges in regards to the patient's admission. Patient currently awaiting a bed on 3 S. in stable condition with a guarded prognosis - Lab Data Result diagrams: 05/31/22 07:32 06/01/22 06:41 Lab Results 05/29/22 05/29/22 05/29/22 Range/Units 11:06 11:06 11:06 WBC 12.3 H (3.8-10.6) k/uL RBC 4.68 (4.30-5.90) m/uL Hgb 13.7 (13.0-17.5) gm/dL Hct 41.8 (39.0-53.0) % MCV 89.4 (80.0-100.0) fL MCH 29.4 (25.0-35.0) pg MCHC 32.9 (31.0-37.0) g/dL RDW 13.6 (11.5-15.5) % Plt Count 162 (150-450) k/uL MPV 10.3 Neutrophils % 81 % Lymphocytes % 6 % Monocytes % 9 % Eosinophils % 0 % Basophils % 1 % Neutrophils # 9.9 H (1.3-7.7) k/uL Lymphocytes # 0.8 L (1.0-4.8) k/uL Monocytes # 1.0 (0-1.0) k/uL Eosinophils # 0.0 (0-0.7) k/uL Basophils # 0.1 (0-0.2) k/uL Hypochromasia Slight PT 11.2 (9.0-12.0) sec INR 1.1 (<1.2) APTT 26.3 (22.0-30.0) sec Sample Site ABG pH (7.35-7.45) ABG pCO2 (35-45) mmHg ABG pO2 (83-108) mmHg ABG HCO3 (21-25) mmol/L ABG Total CO2 (19-24) mmol/L ABG O2 Saturation (94-97) % ABG Base Excess mmol/L Christopher Test FiO2 % Sodium 133 L (137-145) mmol/L Potassium 5.6 H (3.5-5.1) mmol/L Chloride 100 (98-107) mmol/L Carbon Dioxide 27 (22-30) mmol/L Anion Gap 6 mmol/L BUN 104 H* (9-20) mg/dL Creatinine 1.80 H (0.66-1.25) mg/dL Est GFR (CKD-EPI)AfAm 38 (>60 ml/min/1.73 sqM) Est GFR (CKD-EPI)NonAf 33 (>60 ml/min/1.73 sqM) Glucose 209 H (74-99) mg/dL Plasma Lactic Acid [place] (0.7-2.0) mmol/L Calcium 8.1 L (8.4-10.2) mg/dL Magnesium 3.0 H (1.6-2.3) mg/dL Total Bilirubin 0.9 (0.2-1.3) mg/dL AST 78 H (17-59) U/L ALT 102 H (4-49) U/L Alkaline Phosphatase 172 H (38-126) U/L Troponin I (0.000-0.034) ng/mL NT-Pro-B Natriuret Pep pg/mL Total Protein 6.8 (6.3-8.2) g/dL Albumin 3.6 (3.5-5.0) g/dL 05/29/22 05/29/22 05/29/22 Range/Units 11:06 11:06 11:06 WBC (3.8-10.6) k/uL RBC (4.30-5.90) m/uL Hgb (13.0-17.5) gm/dL Hct (39.0-53.0) % MCV (80.0-100.0) fL MCH (25.0-35.0) pg MCHC (31.0-37.0) g/dL RDW (11.5-15.5) % Plt Count (150-450) k/uL MPV Neutrophils % % Lymphocytes % % Monocytes % % Eosinophils % % Basophils % % Neutrophils # (1.3-7.7) k/uL Lymphocytes # (1.0-4.8) k/uL Monocytes # (0-1.0) k/uL Eosinophils # (0-0.7) k/uL Basophils # (0-0.2) k/uL Hypochromasia PT (9.0-12.0) sec INR (<1.2) APTT (22.0-30.0) sec Sample Site ABG pH (7.35-7.45) ABG pCO2 (35-45) mmHg ABG pO2 (83-108) mmHg ABG HCO3 (21-25) mmol/L ABG Total CO2 (19-24) mmol/L ABG O2 Saturation (94-97) % ABG Base Excess mmol/L Christopher Test FiO2 % Sodium (137-145) mmol/L Potassium (3.5-5.1) mmol/L Chloride (98-107) mmol/L Carbon Dioxide (22-30) mmol/L Anion Gap mmol/L BUN (9-20) mg/dL Creatinine (0.66-1.25) mg/dL Est GFR (CKD-EPI)AfAm (>60 ml/min/1.73 sqM) Est GFR (CKD-EPI)NonAf (>60 ml/min/1.73 sqM) Glucose (74-99) mg/dL Plasma Lactic Acid [place] 0.9 (0.7-2.0) mmol/L Calcium (8.4-10.2) mg/dL Magnesium (1.6-2.3) mg/dL Total Bilirubin (0.2-1.3) mg/dL AST (17-59) U/L ALT (4-49) U/L Alkaline Phosphatase (38-126) U/L Troponin I 0.062 H* (0.000-0.034) ng/mL NT-Pro-B Natriuret Pep 69424 pg/mL Total Protein (6.3-8.2) g/dL Albumin (3.5-5.0) g/dL 05/29/22 Range/Units 11:45 WBC (3.8-10.6) k/uL RBC (4.30-5.90) m/uL Hgb (13.0-17.5) gm/dL Hct (39.0-53.0) % MCV (80.0-100.0) fL MCH (25.0-35.0) pg MCHC (31.0-37.0) g/dL RDW (11.5-15.5) % Plt Count (150-450) k/uL MPV Neutrophils % % Lymphocytes % % Monocytes % % Eosinophils % % Basophils % % Neutrophils # (1.3-7.7) k/uL Lymphocytes # (1.0-4.8) k/uL Monocytes # (0-1.0) k/uL Eosinophils # (0-0.7) k/uL Basophils # (0-0.2) k/uL Hypochromasia PT (9.0-12.0) sec INR (<1.2) APTT (22.0-30.0) sec Sample Site Right Brachial ABG pH 7.19 L* (7.35-7.45) ABG pCO2 78 H* (35-45) mmHg ABG pO2 81 L (83-108) mmHg ABG HCO3 30 H (21-25) mmol/L ABG Total CO2 32 H (19-24) mmol/L ABG O2 Saturation 93.9 L (94-97) % ABG Base Excess 1.8 mmol/L Christopher Test Yes FiO2 40 % Sodium (137-145) mmol/L Potassium (3.5-5.1) mmol/L Chloride (98-107) mmol/L Carbon Dioxide (22-30) mmol/L Anion Gap mmol/L BUN (9-20) mg/dL Creatinine (0.66-1.25) mg/dL Est GFR (CKD-EPI)AfAm (>60 ml/min/1.73 sqM) Est GFR (CKD-EPI)NonAf (>60 ml/min/1.73 sqM) Glucose (74-99) mg/dL Plasma Lactic Acid [place] (0.7-2.0) mmol/L Calcium (8.4-10.2) mg/dL Magnesium (1.6-2.3) mg/dL Total Bilirubin (0.2-1.3) mg/dL AST (17-59) U/L ALT (4-49) U/L Alkaline Phosphatase (38-126) U/L Troponin I (0.000-0.034) ng/mL NT-Pro-B Natriuret Pep pg/mL Total Protein (6.3-8.2) g/dL Albumin (3.5-5.0) g/dL 05/29/22 12:53 EKG demonstrates normal sinus rhythm with rate of 92. [place] interval 148. QRS 176. QTC of 497. Right bundle branch block. Left anterior fascicular block. No acute ST segment elevations Critical Care Time Critical Care Time: Yes Critical Care Time: 35 minutes for bipap management Disposition Clinical Impression: Acute pulmonary edema, Obesity, CHF exacerbation, BiPAP (biphasic positive airway pressure) dependence, Acute encephalopathy Disposition: ADMITTED IP TO THIS HOSP Condition: Serious Is patient prescribed a controlled substance at d/c from ED?: No Time of Disposition: 12:57 Decision to Admit Reason: Admit from EC Decision Date: 05/29/22 Decision Time: 12:57
[2022-05-29] MEDS: CLOPIDOGREL 75 MG TAB PO SCH (14:09)
[2022-05-29 15:19] LABS: ABG Base Excess 0.1 mmol/L; ABG HCO3 29 mmol/L (21-25); ABG Oxygen Saturation 96.3 % (94-97); ABG PO2 97 mmHg (83-108); ABG TCO2 32 mmol/L (19-24); Allen Test Performed? Yes
[2022-05-29 15:21] LABS: ABG PCO2 85 mmHg (35-45); ABG PH 7.14 (7.35-7.45)
[2022-05-29] MEDS ORDERED: DEXTROSE 50% SYRINGE 50 ML IVP PRN ×2 (17:29)
--- NOTE | 2022-05-29 17:50 | P.HPIM ---
History of Present Illness H&P Date: 05/29/22 Patient is a an 89-year-old male with known diabetes, hypertension, dyslipidemia, and coronary artery disease who presented to the hospital from his care home due to low oxygen levels and decreased responsiveness. On arrival to the ER his initial vital signs were within normal limits. O2 sat was 96% on a mask. Laboratory analysis was remarkable for sodium 133, potassium 5.6, BUN 104, creatinine 1.8, AST 78, ALT 102, troponin 0.062, and BNP 23,300. Initial ABG showed pH of 7.19 with pO2 78. Patient was transitioned to BiPAP. Chest x- ray showed cardiomegaly with pulmonary venous congestion and bilateral pleural effusions. He was given a dose of Lasix. Arrangements were made for admission. Patient seen and examined at bedside. At this time groans to sternal rub. All information is gathered from thorough records review including records sent over from his care home and admission in August 2020 from 09/20 through 09/23. Unable to obtain review of systems due to patient's altered mentation Vital signs reviewed General: Ill-appearing, moderate distress, appears at stated age Derm: warm, dry Head: atraumatic, normocephalic, symmetric Eyes pupils equal round reactive to light, no lip lesion anicteric sclera ENT: Nose and ears atraumatic, no thrush Neck: No thyromegaly, no cervical lymphadenopathy, trachea midline, supple Mouth: no lip lesion, mucus membranes moist Cardiovascular: S1-S2 irregular, systolic ejection murmur, positive posterior tibial pulse bilateral, 4+ edema, capillary refill less than 2 seconds Lungs: Decreased breath sounds bilateral no accessory muscle use, on BiPAP current settings are 12/5 the patient is only getting 150-350 mL per respiration. Abdominal: soft, nontender to palpation, no guarding, no appreciable organomegaly, normal bowel sounds Ext: no gross muscle atrophy, no contractures, Neuro: Equal round reactive to light, positive cough, positive gag, + withdrawal to pain in bilateral upper and lower extremities Psych: Lethargic ABG reviewed - IPAP increased to 18 with Vt increased to 400. D/W respiratory repeat ABG in 30 minutes Assessment/Plan: Acute exacerbation of systolic CHF Elevated Troponin, Type II RI Cardiorenal syndrome Hyperkalemia Transaminitis due to hepatic congestion HTN - Lasix BID - strit I and O daily weights - hold potassium, recheck BMP - serial troponins - not chronically on ACEI, BB, or Aldactone - resume home plavix, ASA, and lipitor - follow BP Hypercapnic respiratory failure due to obesity hypoventilation syndrome Acute encephalopathy respiraotry acidosis - bipap, setting adjusted as above - await repeat ABG - NPO until more awake - Pulm consult, spoke with Dr. Daljit CHUN 2 - hold metformin - SSI - Follow BS Chronic: Thrombocytopenia Aortic stenosis Obesity, class III Obesity hypoventilation syndrome TIA Dyslipidemia Spoke with Shane at public guardian office -- informed that patient is not doing well on max support without mechanical ventilation. She confirms that he is a DNR. She will alert family to poor prognosis, if able to find any in record.She is aware patient is likely to pass this evening due to respiroatory status. The patient is admitted with an anticipated greater than 2 midnight stay for evaluation of CHF. Surrogate decision-maker: Legal Guardian CODE STATUS:DNR DVT prophylaxis: Heparin Discussed with: Nursing, ED provider, Respiratory therapy Anticipated discharge date: pending clinical course Anticipated discharge place: pending clinical course A total of 75 minutes was spent on the care of this complex patient more than 50% of the time was spent in counseling and care coordination. Past Medical History Past Medical History: Coronary Artery Disease (CAD), Heart Failure, Diabetes Mellitus, Hyperlipidemia, Hypertension, Osteoarthritis (OA) Additional Past Medical History / Comment(s): obesity hypoventilation syndrome. Thrombocytopenia. Aortic stenosis. Obesity, class III. TIA History of Any Multi-Drug Resistant Organisms: None Reported Additional Past Surgical History / Comment(s): lung surg Past Anesthesia/Blood Transfusion Reactions: No Reported Reaction Past Psychological History: No Psychological Hx Reported Smoking Status: Former smoker Past Alcohol Use History: Rare Past Drug Use History: None Reported - Past Family History Father Family Medical History: Myocardial Infarction ([place]) Additional Family Medical History / Comment(s): emphysema Medications and Allergies Home Medications Medication Instructions Recorded Confirmed Type Aspirin 81 mg PO DAILY #100 chew 10/23/19 05/29/22 Rx Acetaminophen [Tylenol Arthritis] 650 mg PO Q6H PRN 07/31/20 05/29/22 History Atorvastatin [Lipitor] 40 mg PO HS 07/31/20 05/29/22 History Cyanocobalamin (Vitamin B-12) 1,000 mcg PO DAILY 07/31/20 05/29/22 History [Vitamin B-12] Potassium Chloride ER [K-Dur 20] 20 meq PO DAILY 07/31/20 05/29/22 History Multivitamins, Thera [Multivitamin 1 tab PO DAILY 09/20/20 05/29/22 History (formulary)] Clopidogrel Bisulfate [Plavix] 75 mg PO DAILY #30 tab 09/23/20 05/29/22 Rx Acetaminophen Tab [Tylenol] 650 mg PO BID 05/29/22 05/29/22 History Albuterol Nebulized [Ventolin 2.5 mg INHALATION RT-Q4H 05/29/22 05/29/22 History Nebulized] Amoxic-Pot Clav 875-125Mg 1 tab PO Q12HR 05/29/22 05/29/22 History [Augmentin 875-125] Cholecalciferol [Vitamin D3 (25 50 mcg PO DAILY 05/29/22 05/29/22 History Mcg = 1000 Iu)] Fluticasone Nasal [place] [Flonase 1 spray EA NOSTRIL DAILY@0800 05/29/22 05/29/22 History Nasal [place]] Folic Acid 0.8 mg PO DAILY@0800 05/29/22 05/29/22 History Furosemide [Lasix] 40 mg PO BID@0700,1600 PRN 05/29/22 05/29/22 History Gabapentin 300 mg PO HS 05/29/22 05/29/22 History LORazepam [Ativan] 0.5 mg PO HS 05/29/22 05/29/22 History Loratadine 10 mg PO DAILY 05/29/22 05/29/22 History Melatonin 5 mg PO HS PRN 05/29/22 05/29/22 History Menthol [Biofreeze] 1 applic TOPICAL Q8H PRN 05/29/22 05/29/22 History Thiamine [Vitamin B-1] 100 mg PO DAILY 05/29/22 05/29/22 History guaiFENesin [guaiFENesin ER] 600 mg PO BID@0800,2000 05/29/22 05/29/22 History guaiFENesin [guaiFENesin Oral 10 mg PO Q6H PRN 05/29/22 05/29/22 History Solution] metFORMIN HCL 500 mg PO DAILY 05/29/22 05/29/22 History traMADol HCL 50 mg PO Q8H PRN 05/29/22 05/29/22 History Allergies Allergy/AdvReac Type Severity Reaction Status Date / Time No Known Allergies Allergy Verified 05/29/22 11:33 Physical Exam Osteopathic Statement: *. No significant issues noted on an osteopathic structural exam other than those noted in the History and Physical/Consult. Vitals: Vital Signs Temp Pulse Resp BP Pulse Ox FiO2 05/29/22 15:37 87 24 109/77 96 05/29/22 15:32 50 05/29/22 14:42 86 150/117 97 05/29/22 12:55 86 20 101/56 94 L 05/29/22 12:02 50 05/29/22 10:48 90 131/66 05/29/22 10:47 97.8 F 89 18 131/66 96 Intake and Output 05/29/22 05/29/22 05/29/22 06:59 14:59 22:59 Other: Weight 136.078 kg Results CBC & Chem 7: 05/29/22 11:06 05/29/22 11:06 Labs: Abnormal Lab Results - Last 24 Hours (Table) 05/29/22 05/29/22 05/29/22 Range/Units 11:06 11:06 11:06 WBC 12.3 H (3.8-10.6) k/uL Neutrophils # 9.9 H (1.3-7.7) k/uL Lymphocytes # 0.8 L (1.0-4.8) k/uL ABG pH (7.35-7.45) ABG pCO2 (35-45) mmHg ABG pO2 (83-108) mmHg ABG HCO3 (21-25) mmol/L ABG Total CO2 (19-24) mmol/L ABG O2 Saturation (94-97) % Sodium 133 L (137-145) mmol/L Potassium 5.6 H (3.5-5.1) mmol/L BUN 104 H* (9-20) mg/dL Creatinine 1.80 H (0.66-1.25) mg/dL Glucose 209 H (74-99) mg/dL Calcium 8.1 L (8.4-10.2) mg/dL Magnesium 3.0 H (1.6-2.3) mg/dL AST 78 H (17-59) U/L ALT 102 H (4-49) U/L Alkaline Phosphatase 172 H (38-126) U/L Troponin I 0.062 H* (0.000-0.034) ng/mL 05/29/22 05/29/22 05/29/22 Range/Units 11:45 14:45 15:10 WBC (3.8-10.6) k/uL Neutrophils # (1.3-7.7) k/uL Lymphocytes # (1.0-4.8) k/uL ABG pH 7.19 L* 7.14 L* (7.35-7.45) ABG pCO2 78 H* 85 H* (35-45) mmHg ABG pO2 81 L (83-108) mmHg ABG HCO3 30 H 29 H (21-25) mmol/L ABG Total CO2 32 H 32 H (19-24) mmol/L ABG O2 Saturation 93.9 L (94-97) % Sodium (137-145) mmol/L Potassium (3.5-5.1) mmol/L BUN (9-20) mg/dL Creatinine (0.66-1.25) mg/dL Glucose (74-99) mg/dL Calcium (8.4-10.2) mg/dL Magnesium (1.6-2.3) mg/dL AST (17-59) U/L ALT (4-49) U/L Alkaline Phosphatase (38-126) U/L Troponin I 0.066 H* (0.000-0.034) ng/mL
[2022-05-29 18:17] LABS: ABG Base Excess 0.8 mmol/L; ABG HCO3 29 mmol/L (21-25); ABG Oxygen Saturation 94.2 % (94-97); ABG PO2 79 mmHg (83-108); ABG TCO2 32 mmol/L (19-24); Allen Test Performed? Yes
[2022-05-29 18:21] LABS: ABG PCO2 79 mmHg (35-45); ABG PH 7.18 (7.35-7.45)
[2022-05-29] MEDS: IPRATROPIUM-ALBUTEROL 3 ML NEB INHALATION SCH ×2 (18:25→19:09)
[2022-05-29 18:31] LABS: Calcium 8.2 mg/dL (8.4-10.2)
[2022-05-29 19:04] LABS: Glucose,Whole Blood 184 mg/dL (70-110)
[2022-05-29] MEDS: INSULIN ASPART (NovoLOG) 100 UNIT/ML VIAL SQ SCH (19:05)
[2022-05-29] MEDS: ALBUTEROL NEBULIZED 2.5 MG/3 ML INHALATION SCH ×2 (19:09→23:48)
[2022-05-29] MEDS ORDERED: CALCIUM GLUCONATE IN NACL 1 GM in SALINE 1 100ML.BAG IVPB ONE (19:49)
[2022-05-29] MEDS ORDERED: DEXTROSE 50% SYRINGE 50 ML IVP STA (19:49)
[2022-05-29] MEDS ORDERED: INSULIN REGULAR 100 UNIT/ML VIAL (IV) IV ONE (19:49)
[2022-05-29 19:56] LABS: Glucose,Whole Blood 178 mg/dL (70-110)
[2022-05-29] MEDS: FUROSEMIDE 10 MG/ML 10 ML VIAL IV SCH (20:14)
[2022-05-29 20:21] LABS: ABG Base Excess 0.6 mmol/L; ABG HCO3 29 mmol/L (21-25); ABG Oxygen Saturation 97.3 % (94-97); ABG PO2 101 mmHg (83-108); ABG TCO2 31 mmol/L (19-24); Allen Test Performed? Yes
[2022-05-29 20:23] LABS: ABG PCO2 73 mmHg (35-45)
[2022-05-29] MEDS: guaiFENesin 600 MG TABLET.ER PO SCH (21:23)
[2022-05-29] MEDS: GABAPENTIN 300 MG CAP PO SCH (21:24)
[2022-05-29] MEDS: LORazepam 0.5 MG TAB PO SCH (21:24)
[2022-05-29] MEDS: ATORVASTATIN 40 MG TAB PO SCH (21:24)
[2022-05-29] MEDS: LORazepam 2 MG/ML INJ IV PRN (21:56)
[2022-05-30] MEDS: IPRATROPIUM-ALBUTEROL 3 ML NEB INHALATION SCH ×6 (00:01→19:46)
[2022-05-30] MEDS: INSULIN ASPART (NovoLOG) 100 UNIT/ML VIAL SQ SCH ×5 (03:16→20:41)
[2022-05-30 05:57] LABS: Glucose,Whole Blood 149 mg/dL (70-110)
[2022-05-30] MEDS: LORazepam 2 MG/ML INJ IV PRN ×2 (06:22→21:45)
--- NOTE | 2022-05-30 08:44 | P.CRDCN ---
History of Present Illness Consult date: 05/30/22 Chief complaint: Shortness of breath/change in mental status History of present illness: The patient is an 89-year-old gentleman with a past medical history significant for severe cardiomyopathy with the last echo from 2020 showing an ejection f raction of 35% as well as known valvular heart disease was moderate aortic stenosis and moderate MR and moderate TR as well as diabetes and hypertension and dyslipidemia and underlying dementia. Currently the patient is residing at [facility]. We consulted to see the patient for further evaluation of shortness of breath. The patient was seen and evaluated bedside. He does have significant change in mental status and his poor historian and history was taken from the chart as well as from the nurse taking care of the patient. Apparently the patient was found to be hypoxic at the [facility] facility. His oxygen saturation was in the 80s. He was brought to the emergency dep artment for further evaluation. He was placed on BiPAP to keep his oxygen saturation above 90%. He was experiencing some increasing shortness of breath but no indication that he was experiencing increasing in the lower extremities edema and no symptoms of chest pain or chest discomfort and no dizziness or lightheadedness and no presyncope or syncope. He underwent a workup during the emergency department including chest x-ray showed findings consistent was failure with pulmonary vascular congestion as well as anti-proBNP which came in to be elevated at 20,000. The EKG showed sinus rhythm with sinus tachycardia likely related to respiratory distress. His troponin came in to be slightly el evated. The EKG did not show any ischemic changes. The patient subsequently was admitted to the hospital and was started on Lasix at 80 mg IV twice a day. His weight today which is about 24 hours since he was admitted has not changed as of yet. He continues to be hypoxic at this point he continues to require BiPAP to keep the oxygen saturation above 90%. Past Medical History Past Medical History: Coronary Artery Disease (CAD), Heart Failure, CVA/TIA, D iabetes Mellitus, Hyperlipidemia, Hypertension, Osteoarthritis (OA) Additional Past Medical History / Comment(s): obesity hypoventilation syndrome. Thrombocytopenia. Aortic stenosis. Obesity, class III. TIA History of Any Multi-Drug Resistant Organisms: None Reported Additional Past Surgical History / Comment(s): lung surg Past Anesthesia/Blood Transfusion Reactions: No Reported Reaction Past Psychological History: No Psychological Hx Reported Smoking Status: Former smoker Past Alcohol Use History: None Reported, Rare Past Drug Use History: None Reported - Past Family History Father Family Medical History: Myocardial Infarction ([place]) Additional Family Medical History / Comment(s): emphysema Medications and Allergies Home Medications Medication Instructions Recorded Confirmed Type Aspirin 81 mg PO DAILY #100 chew 10/23/19 05/29/22 Rx Acetaminophen [Tylenol Arthritis] 650 mg PO Q6H PRN 07/31/20 05/29/22 History Atorvastatin [Lipitor] 40 mg PO HS 07/31/20 05/29/22 History Cyanocobalamin (Vitamin B-12) 1,000 mcg PO DAILY 07/31/20 05/29/22 History [Vitamin B-12] Potassium Chloride ER [K-Dur 20] 20 meq PO DAILY 07/31/20 05/29/22 History Multivitamins, Thera [Multivitamin 1 tab PO DAILY 09/20/20 05/29/22 History (formulary)] Clopidogrel Bisulfate [Plavix] 75 mg PO DAILY #30 tab 09/23/20 05/29/22 Rx Acetaminophen Tab [Tylenol] 650 mg PO BID 05/29/22 05/29/22 History Albuterol Nebulized [Ventolin 2.5 mg INHALATION RT-Q4H 05/29/22 05/29/22 History Nebulized] Amoxic-Pot Clav 875-125Mg 1 tab PO Q12HR 05/29/22 05/29/22 History [Augmentin 875-125] Cholecalciferol [Vitamin D3 (25 50 mcg PO DAILY 05/29/22 05/29/22 History Mcg = 1000 Iu)] Fluticasone Nasal [place] [Flonase 1 spray EA NOSTRIL DAILY@0800 05/29/22 05/29/22 History Nasal [place]] Folic Acid 0.8 mg PO DAILY@0800 05/29/22 05/29/22 History Furosemide [Lasix] 40 mg PO BID@0700,1600 PRN 05/29/22 05/29/22 History Gabapentin 300 mg PO HS 05/29/22 05/29/22 History LORazepam [Ativan] 0.5 mg PO HS 05/29/22 05/29/22 History Loratadine 10 mg PO DAILY 05/29/22 05/29/22 History Melatonin 5 mg PO HS PRN 05/29/22 05/29/22 History Menthol [Biofreeze] 1 applic TOPICAL Q8H PRN 05/29/22 05/29/22 History Thiamine [Vitamin B-1] 100 mg PO DAILY 05/29/22 05/29/22 History guaiFENesin [guaiFENesin ER] 600 mg PO BID@0800,199905/29/22 05/29/22 History guaiFENesin [guaiFENesin Oral 10 mg PO Q6H PRN 05/29/22 05/29/22 History Solution] metFORMIN HCL 500 mg PO DAILY 05/29/22 05/29/22 History traMADol HCL 50 mg PO Q8H PRN 05/29/22 05/29/22 History Allergies Allergy/AdvReac Type Severity Reaction Status Date / Time No Known Allergies Allergy Verified 05/29/22 11:33 Physical Exam Vitals: Vital Signs Temp Pulse Pulse Resp BP BP Pulse Ox 05/30/22 08:05 80 05/30/22 07:58 76 05/30/22 04:17 75 05/30/22 04:08 05/30/22 04:07 75 05/30/22 03:12 97.8 F 73 19 128/74 93 L 05/30/22 02:00 84 22 05/30/22 00:19 88 05/30/22 00:01 84 92 L 05/30/22 00:00 98.0 F 80 22 122/79 95 05/29/22 20:30 05/29/22 20:00 97.6 F 84 24 125/76 94 L 05/29/22 19:22 83 05/29/22 19:09 82 05/29/22 18:49 98 F 81 22 100/61 94 L 05/29/22 15:37 87 24 109/77 96 05/29/22 15:32 05/29/22 14:42 86 150/117 97 05/29/22 12:55 86 20 101/56 94 L 05/29/22 12:02 05/29/22 10:48 90 131/66 05/29/22 10:47 97.8 F 89 18 131/66 96 FiO2 05/30/22 08:05 05/30/22 07:58 05/30/22 04:17 05/30/22 04:08 40 05/30/22 04:07 05/30/22 03:12 40 05/30/22 02:00 05/30/22 00:19 05/30/22 00:01 40 05/30/22 00:00 50 05/29/22 20:30 40 05/29/22 20:00 50 05/29/22 19:22 05/29/22 19:09 50 05/29/22 18:49 05/29/22 15:37 05/29/22 15:32 50 05/29/22 14:42 05/29/22 12:55 05/29/22 12:02 50 05/29/22 10:48 05/29/22 10:47 Intake and Output 05/29/22 05/30/22 05/30/22 22:59 06:59 14:59 Output Total 1000 800 Balance -1000 -800 Output: Urine 1000 800 Other: Voiding Method Indwelling Catheter Indwelling Catheter Weight 136.078 kg - Constitutional General appearance: no acute distress - Respiratory Respiratory: bilateral: diminished, wheezing - Cardiovascular Rhythm: regular Results 05/29/22 11:06 05/29/22 17:41 Cardiac Enzymes 05/29/22 05/29/22 05/29/22 Range/Units 11:06 11:06 14:45 AST 78 H (17-59) U/L Troponin I 0.062 H* 0.066 H* (0.000-0.034) ng/mL 05/29/22 Range/Units 17:41 AST (17-59) U/L Troponin I 0.061 H* (0.000-0.034) ng/mL Coagulation 05/29/22 Range/Units 11:06 PT 11.2 (9.0-12.0) sec APTT 26.3 (22.0-30.0) sec CBC 05/29/22 Range/Units 11:06 WBC 12.3 H (3.8-10.6) k/uL RBC 4.68 (4.30-5.90) m/uL Hgb 13.7 (13.0-17.5) gm/dL Hct 41.8 (39.0-53.0) % Plt Count 162 (150-450) k/uL Comprehensive Metabolic Panel 05/29/22 05/29/22 Range/Units 11:06 17:41 Sodium 133 L 134 L (137-145) mmol/L Potassium 5.6 H 6.0 H (3.5-5.1) mmol/L Chloride 100 99 (98-107) mmol/L Carbon Dioxide 27 25 (22-30) mmol/L BUN 104 H* 104 H* (9-20) mg/dL Creatinine 1.80 H 1.91 H (0.66-1.25) mg/dL Glucose 209 H 187 H (74-99) mg/dL Calcium 8.1 L 8.2 L (8.4-10.2) mg/dL AST 78 H (17-59) U/L ALT 102 H (4-49) U/L Alkaline Phosphatase 172 H (38-126) U/L Total Protein 6.8 (6.3-8.2) g/dL Albumin 3.6 (3.5-5.0) g/dL Current Medications Generic Name Dose Route Start Last Admin Trade Name Freq PRN Reason Stop Dose Admin Albuterol/Ipratropium 3 ml 05/29/22 16:00 05/30/22 07:56 Ipratropium-Albuterol 3 Ml Neb INHALATION 3 ml RT-Q4H ADRIAN Administration Aspirin 81 mg 05/30/22 09:00 Aspirin 81 Mg PO DAILY ADRIAN Atorvastatin Calcium 40 mg 05/29/22 21:00 05/29/22 21:24 Atorvastatin 40 Mg Tab PO Not Given HS ADRIAN Clopidogrel Bisulfate 75 mg 05/29/22 13:30 05/29/22 14:09 Clopidogrel 75 Mg Tab PO Not Given DAILY ADRIAN Dextrose/Water 25 ml 05/29/22 17:29 Dextrose 50% Syringe 50 Ml IVP PER PROTOCOL PRN Hypoglycemia Protocol Dextrose/Water 50 ml 05/29/22 17:29 Dextrose 50% Syringe 50 Ml IVP PER PROTOCOL PRN Hypoglycemia Protocol Fluticasone Propionate 1 spray 05/30/22 08:00 Fluticasone 50mcg/[place] Nasal 16gm EA NOSTRIL DAILY@0800 ADRIAN Furosemide 80 mg 05/29/22 21:00 05/29/22 20:14 Furosemide 10 Mg/Ml 10 Ml Vial IV 80 mg Q12HR ADRIAN Administration Gabapentin 300 mg 05/29/22 21:00 05/29/22 21:24 Gabapentin 300 Mg Cap PO Not Given HS ADRIAN Guaifenesin 600 mg 05/29/22 20:00 05/29/22 21:23 Guaifenesin 600 Mg Tablet.Er PO Not Given BID@0800,1999 [facility] Insulin Aspart 0 unit 05/29/22 17:30 05/30/22 05:56 Insulin Aspart (Novolog) 100 Unit/Ml Vial SQ Not Given ACHS [facility] Protocol Loratadine 10 mg 05/30/22 09:00 Loratadine 10 Mg Tab PO DAILY ADRIAN Lorazepam 0.5 mg 05/29/22 21:00 05/29/22 21:24 Lorazepam 0.5 Mg Tab PO Not Given HS ADRIAN Lorazepam 0.5 mg 05/29/22 21:35 05/30/22 06:22 Lorazepam 2 Mg/Ml Inj IV 0.5 mg Q6HR PRN Administration Anxiety Naloxone HCl 0.2 mg 05/29/22 12:58 Naloxone 0.4 Mg/Ml 1 Ml Vial IV Q2M PRN Opioid Reversal Tramadol HCl 50 mg 05/29/22 13:06 Tramadol 50 Mg Tab PO Q8H PRN Pain Intake and Output 05/29/22 05/30/22 05/30/22 22:59 06:59 14:59 Output Total 1000 800 Balance -1000 -800 Output: Urine 1000 800 Other: Voiding Method Indwelling Catheter Indwelling Catheter Weight 136.078 kg 05/29/22 11:06 05/29/22 17:41 Assessment and Plan Assessment: Assessment Acute hypoxic respiratory failure Acute exacerbation of heart failure with reduced ejection fraction Valvular heart disease Severe cardiomyopathy Hypertension Dyslipidemia Diabetes Plan Continue current dose of Lasix IV Continue monitor the kidney function and electrolytes No need to repeat the echo in the light of recent echo from 2020 Follow-up with the patient
[2022-05-30 10:23] LABS: Albumin 3.5 g/dL (3.5-5.0); Calcium 8.1 mg/dL (8.4-10.2); Magnesium 2.9 mg/dL (1.6-2.3); Phosphorus 6.1 mg/dL (2.5-4.5); Potassium 5.4 mmol/L (3.5-5.1); Total Protein 6.7 g/dL (6.3-8.2)
[2022-05-30] MEDS: CLOPIDOGREL 75 MG TAB PO SCH (10:23)
[2022-05-30] MEDS: LORATADINE 10 MG TAB PO SCH (10:23)
[2022-05-30] MEDS: ASPIRIN 81 MG PO SCH (10:23)
[2022-05-30] MEDS: guaiFENesin 600 MG TABLET.ER PO SCH ×2 (10:23→20:46)
[2022-05-30] MEDS: FLUTICASONE 50MCG/SPRAY NASAL 16GM EA NOSTRIL SCH (10:24)
[2022-05-30] MEDS: FUROSEMIDE 10 MG/ML 10 ML VIAL IV SCH ×2 (10:27→20:41)
[2022-05-30 10:41] LABS: Basophils # (A) 0.1 k/uL (0-0.2); Basophils % (A) 1 %; Eosinophils % (A) 0 %; HCT 41.8 % (39.0-53.0); Hypochromasia Moderate; Lymphocytes # (A) 0.3 k/uL (1.0-4.8); Lymphocytes % (A) 2 %; MCH 28.6 pg (25.0-35.0); MCHC 31.1 g/dL (31.0-37.0); MCV 91.7 fL (80.0-100.0); Mean Platelet Volume 10.3; Monocytes # (A) 0.9 k/uL (0-1.0); Monocytes % (A) 7 %; Neutrophils # (A) 11.4 k/uL (1.3-7.7); Neutrophils % (A) 89 %; Platelet Count 134 k/uL (150-450); RBC 4.56 m/uL (4.30-5.90); RDW 13.5 % (11.5-15.5); WBC 12.7 k/uL (3.8-10.6)
[2022-05-30 11:29] LABS: Glucose,Whole Blood 155 mg/dL (70-110)
--- NOTE | 2022-05-30 11:43 | P.CNPUL ---
History of Present Illness Consult date: 05/30/22 Requesting physician: Annemarie Rodriges Reason for consult: dyspnea, hypoxemia, abnormal CXR/CT Chief complaint: Shortness of breath History of present illness: This is an 89-year-old male patient with morbid obesity, chronic venous stasis, congestive heart failure, coronary artery disease, hypertension, hyperlipidemia, diabetes mellitus, daily fever, former smoker. He resides in a care home facility and had been having increasing shortness of breath cough and congestion for 2 days prior. He had been put on oxygen and antibiotics without much improvement. He was brought in by EMS yesterday after they patient was found cyanotic. Minimal air exchange. He was quite lethargic. He was arousing to verbal stimuli. Poor historian. Chest x-ray revealed evidence of cardiomegaly, pulmonary vascular congestion and bilateral pleural effusions. Evidence of congestive heart failure. White count 12.7. Hemoglobin 13.0. Sodium 136. Potassium 5.4. Bicarb 32. BUN 110. Creatinine 1.67. Glucose 154. Initial blood gases on 40% FiO2 revealed a PaO2 of 81, pCO2 of 78 and a pH is 7.12. He was on BiPAP 18/6 and increased to 50% FiO2. His follow-up blood gases revealed a PaO2 of 101, pCO2 of 73 and a pH is 7.20. He is seen today in consultation on the regular medical floor. He is arousable. Poor historian. Continued on BiPAP. He is initiated on DuoNeb inhalations. IV diuretics. Currently on a 1.8 L negative balance. Review of Systems ROS unobtainable: due to mental status Past Medical History Past Medical History: Coronary Artery Disease (CAD), Heart Failure, CVA/TIA, Diabetes Mellitus, Hyperlipidemia, Hypertension, Osteoarthritis (OA) Additional Past Medical History / Comment(s): obesity hypoventilation syndrome. Thrombocytopenia. Aortic stenosis. Obesity, class III. TIA History of Any Multi-Drug Resistant Organisms: None Reported Additional Past Surgical History / Comment(s): lung surg Past Anesthesia/Blood Transfusion Reactions: No Reported Reaction Past Psychological History: No Psychological Hx Reported Smoking Status: Former smoker Past Alcohol Use History: None Reported, Rare Past Drug Use History: None Reported - Past Family History Father Family Medical History: Myocardial Infarction ([place]) Additional Family Medical History / Comment(s): emphysema Medications and Allergies Home Medications Medication Instructions Recorded Confirmed Type Aspirin 81 mg PO DAILY #100 chew 10/23/19 05/29/22 Rx Acetaminophen [Tylenol Arthritis] 650 mg PO Q6H PRN 07/31/20 05/29/22 History Atorvastatin [Lipitor] 40 mg PO HS 07/31/20 05/29/22 History Cyanocobalamin (Vitamin B-12) 1,000 mcg PO DAILY 07/31/20 05/29/22 History [Vitamin B-12] Potassium Chloride ER [K-Dur 20] 20 meq PO DAILY 07/31/20 05/29/22 History Multivitamins, Thera [Multivitamin 1 tab PO DAILY 09/20/20 05/29/22 History (formulary)] Clopidogrel Bisulfate [Plavix] 75 mg PO DAILY #30 tab 09/23/20 05/29/22 Rx Acetaminophen Tab [Tylenol] 650 mg PO BID 05/29/22 05/29/22 History Albuterol Nebulized [Ventolin 2.5 mg INHALATION RT-Q4H 05/29/22 05/29/22 History Nebulized] Amoxic-Pot Clav 875-125Mg 1 tab PO Q12HR 05/29/22 05/29/22 History [Augmentin 875-125] Cholecalciferol [Vitamin D3 (25 50 mcg PO DAILY 05/29/22 05/29/22 History Mcg = 1000 Iu)] Fluticasone Nasal [place] [Flonase 1 spray EA NOSTRIL DAILY@0800 05/29/22 05/29/22 History Nasal [place]] Folic Acid 0.8 mg PO DAILY@0800 05/29/22 05/29/22 History Furosemide [Lasix] 40 mg PO BID@0700,1600 PRN 05/29/22 05/29/22 History Gabapentin 300 mg PO HS 05/29/22 05/29/22 History LORazepam [Ativan] 0.5 mg PO HS 05/29/22 05/29/22 History Loratadine 10 mg PO DAILY 05/29/22 05/29/22 History Melatonin 5 mg PO HS PRN 05/29/22 05/29/22 History Menthol [Biofreeze] 1 applic TOPICAL Q8H PRN 05/29/22 05/29/22 History Thiamine [Vitamin B-1] 100 mg PO DAILY 05/29/22 05/29/22 History guaiFENesin [guaiFENesin ER] 600 mg PO BID@0800,199905/29/22 05/29/22 History guaiFENesin [guaiFENesin Oral 10 mg PO Q6H PRN 05/29/22 05/29/22 History Solution] metFORMIN HCL 500 mg PO DAILY 05/29/22 05/29/22 History traMADol HCL 50 mg PO Q8H PRN 05/29/22 05/29/22 History Allergies Allergy/AdvReac Type Severity Reaction Status Date / Time No Known Allergies Allergy Verified 05/29/22 11:33 Physical Exam Vitals: Vital Signs Temp Pulse Pulse Resp BP BP Pulse Ox 05/30/22 08:26 87 18 108/72 93 L 05/30/22 08:05 80 05/30/22 07:58 76 05/30/22 04:17 75 05/30/22 04:08 05/30/22 04:07 75 05/30/22 03:12 97.8 F 73 19 128/74 93 L 05/30/22 02:00 84 22 05/30/22 00:19 88 05/30/22 00:01 84 92 L 05/30/22 00:00 98.0 F 80 22 122/79 95 05/29/22 20:30 05/29/22 20:00 97.6 F 84 24 125/76 94 L 05/29/22 19:22 83 05/29/22 19:09 82 05/29/22 18:49 98 F 81 22 100/61 94 L 05/29/22 15:37 87 24 109/77 96 05/29/22 15:32 05/29/22 14:42 86 150/117 97 05/29/22 12:55 86 20 101/56 94 L 05/29/22 12:02 FiO2 05/30/22 08:26 40 05/30/22 08:05 05/30/22 07:58 05/30/22 04:17 05/30/22 04:08 40 05/30/22 04:07 05/30/22 03:12 40 05/30/22 02:00 05/30/22 00:19 05/30/22 00:01 40 05/30/22 00:00 50 05/29/22 20:30 40 05/29/22 20:00 50 12/31/22 19:22 05/29/22 19:09 50 05/29/22 18:49 05/29/22 15:37 05/29/22 15:32 50 05/29/22 14:42 05/29/22 12:55 05/29/22 12:02 50 Intake and Output 05/29/22 05/30/22 05/30/22 22:59 06:59 14:59 Intake Total 10 Output Total 1000 800 500 Balance -1000 -800 -490 Intake: IV 10 Invasive Line 1 10 Output: Urine 1000 800 500 Uretheral ([place]) 500 Other: Voiding Method Indwelling Catheter Indwelling Catheter Indwelling Catheter Weight 136.078 kg GENERAL EXAM: Arousable, morbidly obese 89-year-old male patient, on BiPAP, fairly comfortable in no apparent distress. HEAD: Normocephalic. EYES: Normal reaction of pupils, equal size. NOSE: Clear with pink turbinates. THROAT: No erythema or exudates. NECK: No masses, no JVD. CHEST: No chest wall deformity. LUNGS: Equal air entry with crackles in the posterior bases. CVS: S1 and S2 normal with no audible murmur, regular rhythm. ABDOMEN: No hepatosplenomegaly, normal bowel sounds, no guarding or rigidity. SPINE: No scoliosis or deformity SKIN: No rashes CENTRAL NERVOUS SYSTEM: No focal deficits, tone is normal in all 4 extremities. EXTREMITIES: There is changes of chronic venous stasis, 1-2+ peripheral edema. No clubbing, no cyanosis. Peripheral pulses are intact. Results - Laboratory Findings CBC and BMP: 05/30/22 09:08 05/30/22 09:08 ABG ABG pH 7.20 (7.35-7.45) L 05/29/22 20:18 ABG pCO2 73 mmHg (35-45) H* 05/29/22 20:18 ABG pO2 101 mmHg (83-108) 05/29/22 20:18 ABG O2 Saturation 97.3 % (94-97) H 05/29/22 20:18 PT/INR, D-dimer PT 11.2 sec (9.0-12.0) 05/29/22 11:06 INR 1.1 (<1.2) 05/29/22 11:06 Abnormal lab findings: Abnormal Labs 05/29/22 05/29/22 05/29/22 11:06 11:06 11:06 WBC 12.3 H Plt Count Neutrophils # 9.9 H Lymphocytes # 0.8 L ABG pH ABG pCO2 ABG pO2 ABG HCO3 ABG Total CO2 ABG O2 Saturation Sodium 133 L Potassium 5.6 H Chloride Carbon Dioxide BUN 104 H* Creatinine 1.80 H Glucose 209 H POC Glucose (mg/dL) Hemoglobin A1c Calcium 8.1 L Phosphorus Magnesium 3.0 H AST 78 H ALT 102 H Alkaline Phosphatase 172 H Troponin I 0.062 H* 05/29/22 05/29/22 05/29/22 11:45 14:45 15:10 WBC Plt Count Neutrophils # Lymphocytes # ABG pH 7.19 L* 7.14 L* ABG pCO2 78 H* 85 H* ABG pO2 81 L ABG HCO3 30 H 29 H ABG Total CO2 32 H 32 H ABG O2 Saturation 93.9 L Sodium Potassium Chloride Carbon Dioxide BUN Creatinine Glucose POC Glucose (mg/dL) Hemoglobin A1c Calcium Phosphorus Magnesium AST ALT Alkaline Phosphatase Troponin I 0.066 H* 05/29/22 05/29/22 05/29/22 17:41 17:41 17:41 WBC Plt Count Neutrophils # Lymphocytes # ABG pH ABG pCO2 ABG pO2 ABG HCO3 ABG Total CO2 ABG O2 Saturation Sodium 134 L Potassium 6.0 H Chloride Carbon Dioxide BUN 104 H* Creatinine 1.91 H Glucose 187 H POC Glucose (mg/dL) Hemoglobin A1c 7.7 H Calcium 8.2 L Phosphorus Magnesium AST ALT Alkaline Phosphatase Troponin I 0.061 H* 05/29/22 05/29/22 05/29/22 19:02 19:54 20:18 WBC Plt Count Neutrophils # Lymphocytes # ABG pH 7.20 L ABG pCO2 73 H* ABG pO2 ABG HCO3 29 H ABG Total CO2 31 H ABG O2 Saturation 97.3 H Sodium Potassium Chloride Carbon Dioxide BUN Creatinine Glucose POC Glucose (mg/dL) 184 H 178 H Hemoglobin A1c Calcium Phosphorus Magnesium AST ALT Alkaline Phosphatase Troponin I 05/30/22 05/30/22 05/30/22 05:55 09:08 09:08 WBC 12.7 H Plt Count 134 L Neutrophils # 11.4 H Lymphocytes # 0.3 L ABG pH ABG pCO2 ABG pO2 ABG HCO3 ABG Total CO2 ABG O2 Saturation Sodium 136 L Potassium 5.4 H Chloride 97 L Carbon Dioxide 32 H BUN 110 H* Creatinine 1.67 H Glucose 154 H POC Glucose (mg/dL) 149 H Hemoglobin A1c Calcium 8.1 L Phosphorus 6.1 H Magnesium 2.9 H AST ALT 85 H Alkaline Phosphatase 155 H Troponin I 05/30/22 11:27 WBC Plt Count Neutrophils # Lymphocytes # ABG pH ABG pCO2 ABG pO2 ABG HCO3 ABG Total CO2 ABG O2 Saturation Sodium Potassium Chloride Carbon Dioxide BUN Creatinine Glucose POC Glucose (mg/dL) 155 H Hemoglobin A1c Calcium Phosphorus Magnesium AST ALT Alkaline Phosphatase Troponin I - Diagnostic Findings Chest x-ray: image reviewed Assessment and Plan Assessment: Acute on chronic hypoxemic respiratory failure secondary to systolic congestive heart failure in a patient with a known ejection fraction of 30-35% Acute on chronic hypercapnic respiratory failure in a patient who is morbidly obese and suspected obesity/hypoventilation syndrome/sleep apnea Morbid obesity with a BMI of 40 kg/m History of coronary artery disease Moderate aortic stenosis History of chronic obstructive pulmonary disease Former smoker Diabetes mellitus Hypertension Hyperlipidemia [facility] resident Poor overall functional performance based on the above-mentioned multiple comorbidities Plan: The patient was seen and evaluated Chest x-ray, labs and medications reviewed Continue IV diuretics Continue BiPAP support for now Decreased FiO2 to 35% Continue bronchodilators DO NOT RESUSCITATE/DO NOT INTUBATE CODE STATUS We'll continue to follow and make further recommendations based on his clinical status I have personally seen and examined the patient, performed the documentation and the assessment and plan as written. Number of minutes spent on the visit: 20.
[2022-05-30 12:10] LABS: ABG Base Excess 4.1 mmol/L; ABG HCO3 31 mmol/L (21-25); ABG Oxygen Saturation 80.7 % (94-97); ABG PCO2 64 mmHg (35-45); ABG PH 7.29 (7.35-7.45); ABG TCO2 33 mmol/L (19-24); Allen Test Performed? Yes
[2022-05-30 12:15] LABS: ABG PO2 47 mmHg (83-108)
--- NOTE | 2022-05-30 14:56 | XR ---
EXAMINATION TYPE: XR chest 1V portable DATE OF EXAM: 05/30/2022 COMPARISON: Yesterday HISTORY: Hypoxemia TECHNIQUE: Single view FINDINGS: Heart is enlarged. There is some pulmonary vascular congestion. There are chest leads. Ther e is slight blunting of the costophrenic angles. IMPRESSION: There is evidence for mild congestive heart failure which is improved compared to yesterd ay.
[2022-05-30 16:35] LABS: Glucose,Whole Blood 149 mg/dL (70-110)
[2022-05-30] MEDS ORDERED: CALCIUM GLUCONATE IN NACL 1 GM in SALINE 1 100ML.BAG IVPB ONE (16:40)
--- NOTE | 2022-05-30 16:48 | P.PN ---
Subjective Progress Note Date: 05/30/22 (delayed charting seen at 0955) Patient is a an 89-year-old male with known diabetes, hypertension, dyslipidemia, and coronary artery disease who presented to the hospital from his halfway due to low oxygen levels and decreased responsiveness. On arrival to the ER his initial vital signs were within normal limits. O2 sat was 96% on a mask. Laboratory analysis was remarkable for sodium 133, potassium 5.6, BUN 104, creatinine 1.8, AST 78, ALT 102, troponin 0.062, and BNP 23,300. Initial ABG showed pH of 7.19 with pO2 78. Patient was transitioned to BiPAP. Chest x- ray showed cardiomegaly with pulmonary venous congestion and bilateral pleural effusions. He was given a dose of Lasix. Arrangements were made for admission. He continued to be acidotic and his BiPAP settings were optimized. He was continued on scheduled Lasix. Cardiology and pulmonary were consulted. Patient seen and examined at bedside. He again is lethargic. He does open eyes to sternal rub. He tries to that my hand away but he is not conversational. No family present at bedside. General: Ill-appearing, no acute distress], appears at stated age Derm: warm, dry Head: atraumatic, normocephalic, symmetric Eyes: EOMI, no lid lag, anicteric sclera Mouth: no lip lesion, mucus membranes moist Cardiovascular: S1S2 reg, no murmur, positive posterior tibial pulse bilateral, Lungs: Worse breath sounds bilateral, no rhonchi, no rales , no accessory muscle use Abdominal: soft, nontender to palpation, no guarding, no appreciable organomegaly Ext: no gross muscle atrophy, 3+ edema, no contractures Neuro: CN II-XI grossly intact, moving all 4 extremities independently Psych: Lethargic Assessment/Plan: Acute exacerbation of systolic CHF Elevated Troponin, Type II LA TRAVIS due to Cardiorenal syndrome - improving Hyperkalemia Transaminitis due to hepatic congestion HTN - Lasix BID - strit I and O daily weights - Continue to hold potassium - serial troponins - not chronically on ACEI, BB, or Aldactone - plavix, ASA, and lipitor once awake enough to come off bipap - follow BP Hypercapnic respiratory failure due to obesity hypoventilation syndrome Acute encephalopathy respiraotry acidosis - bipap - Repeat ABG to see if we are able to decreased iPap - NPO until more awake - pulm recs apprecaited DM 2 - hold metformin - SSI - Follow BS Chronic: Thrombocytopenia Aortic stenosis Obesity, class III Obesity hypoventilation syndrome TIA Dyslipidemia Poor overall prognosis, patient is a DNR. Per nursing family is coming in today to see the patient. DVT prophylaxis: Heparin Discussed with: Nursing Anticipated discharge: Pending clinical course Anticipated discharge place: Pending clinical course A total of 45 minutes was spent on the care of this complex patient more than 5 0% of the time was spent in counseling and care coordination. Objective - Vital Signs Vital signs: Vital Signs Temp 97.9 F 05/30/22 16:16 Pulse 83 05/30/22 16:16 Resp 21 05/30/22 16:16 BP 132/74 05/30/22 16:16 Pulse Ox 97 05/30/22 16:16 FiO2 50 05/30/22 16:16 Intake & Output 05/29/22 05/30/22 05/30/22 18:59 06:59 18:59 Intake Total 20 Output Total 1800 1225 Balance -1800 -1205 Weight 136.078 kg 136.078 kg Intake: IV 20 Invasive Line 1 20 Output: Urine 1800 1225 Uretheral (Sandoval) 500 Other: Voiding Method Indwelling Catheter Indwelling Catheter # Bowel Movements 1 - Labs CBC & Chem 7: 05/30/22 09:08 05/30/22 09:08 Labs: Abnormal Lab Results - Last 24 Hours (Table) 05/29/22 05/29/22 05/29/22 Range/Units 17:41 17:41 17:41 WBC (3.8-10.6) k/uL Plt Count (150-450) k/uL Neutrophils # (1.3-7.7) k/uL Lymphocytes # (1.0-4.8) k/uL ABG pH (7.35-7.45) ABG pCO2 (35-45) mmHg ABG pO2 (83-108) mmHg ABG HCO3 (21-25) mmol/L ABG Total CO2 (19-24) mmol/L ABG O2 Saturation (94-97) % Sodium 134 L (137-145) mmol/L Potassium 6.0 H (3.5-5.1) mmol/L Chloride (98-107) mmol/L Carbon Dioxide (22-30) mmol/L BUN 104 H* (9-20) mg/dL Creatinine 1.91 H (0.66-1.25) mg/dL Glucose 187 H (74-99) mg/dL POC Glucose (mg/dL) (70-110) mg/dL Hemoglobin A1c 7.7 H (0.0-6.0) % Calcium 8.2 L (8.4-10.2) mg/dL Phosphorus (2.5-4.5) mg/dL Magnesium (1.6-2.3) mg/dL ALT (4-49) U/L Alkaline Phosphatase (38-126) U/L Troponin I 0.061 H* (0.000-0.034) ng/mL 05/29/22 05/29/22 05/29/22 Range/Units 18:13 19:02 19:54 WBC (3.8-10.6) k/uL Plt Count (150-450) k/uL Neutrophils # (1.3-7.7) k/uL Lymphocytes # (1.0-4.8) k/uL ABG pH 7.18 L* (7.35-7.45) ABG pCO2 79 H* (35-45) mmHg ABG pO2 79 L (83-108) mmHg ABG HCO3 29 H (21-25) mmol/L ABG Total CO2 32 H (19-24) mmol/L ABG O2 Saturation (94-97) % Sodium (137-145) mmol/L Potassium (3.5-5.1) mmol/L Chloride (98-107) mmol/L Carbon Dioxide (22-30) mmol/L BUN (9-20) mg/dL Creatinine (0.66-1.25) mg/dL Glucose (74-99) mg/dL POC Glucose (mg/dL) 184 H 178 H (70-110) mg/dL Hemoglobin A1c (0.0-6.0) % Calcium (8.4-10.2) mg/dL Phosphorus (2.5-4.5) mg/dL Magnesium (1.6-2.3) mg/dL ALT (4-49) U/L Alkaline Phosphatase (38-126) U/L Troponin I (0.000-0.034) ng/mL 12/05/30/22 05/30/22 Range/Units 20:18 05:55 09:08 WBC 12.7 H (3.8-10.6) k/uL Plt Count 134 L (150-450) k/uL Neutrophils # 11.4 H (1.3-7.7) k/uL Lymphocytes # 0.3 L (1.0-4.8) k/uL ABG pH 7.20 L (7.35-7.45) ABG pCO2 73 H* (35-45) mmHg ABG pO2 (83-108) mmHg ABG HCO3 29 H (21-25) mmol/L ABG Total CO2 31 H (19-24) mmol/L ABG O2 Saturation 97.3 H (94-97) % Sodium (137-145) mmol/L Potassium (3.5-5.1) mmol/L Chloride (98-107) mmol/L Carbon Dioxide (22-30) mmol/L BUN (9-20) mg/dL Creatinine (0.66-1.25) mg/dL Glucose (74-99) mg/dL POC Glucose (mg/dL) 149 H (70-110) mg/dL Hemoglobin A1c (0.0-6.0) % Calcium (8.4-10.2) mg/dL Phosphorus (2.5-4.5) mg/dL Magnesium (1.6-2.3) mg/dL ALT (4-49) U/L Alkaline Phosphatase (38-126) U/L Troponin I (0.000-0.034) ng/mL 05/30/22 05/30/22 05/30/22 Range/Units 09:08 11:27 12:07 WBC (3.8-10.6) k/uL Plt Count (150-450) k/uL Neutrophils # (1.3-7.7) k/uL Lymphocytes # (1.0-4.8) k/uL ABG pH 7.29 L (7.35-7.45) ABG pCO2 64 H (35-45) mmHg ABG pO2 47 L* (83-108) mmHg ABG HCO3 31 H (21-25) mmol/L ABG Total CO2 33 H (19-24) mmol/L ABG O2 Saturation 80.7 L (94-97) % Sodium 136 L (137-145) mmol/L Potassium 5.4 H (3.5-5.1) mmol/L Chloride 97 L (98-107) mmol/L Carbon Dioxide 32 H (22-30) mmol/L BUN 110 H* (9-20) mg/dL Creatinine 1.67 H (0.66-1.25) mg/dL Glucose 154 H (74-99) mg/dL POC Glucose (mg/dL) 155 H (70-110) mg/dL Hemoglobin A1c (0.0-6.0) % Calcium 8.1 L (8.4-10.2) mg/dL Phosphorus 6.1 H (2.5-4.5) mg/dL Magnesium 2.9 H (1.6-2.3) mg/dL ALT 85 H (4-49) U/L Alkaline Phosphatase 155 H (38-126) U/L Troponin I (0.000-0.034) ng/mL 05/30/22 Range/Units 16:33 WBC (3.8-10.6) k/uL Plt Count (150-450) k/uL Neutrophils # (1.3-7.7) k/uL Lymphocytes # (1.0-4.8) k/uL ABG pH (7.35-7.45) ABG pCO2 (35-45) mmHg ABG pO2 (83-108) mmHg ABG HCO3 (21-25) mmol/L ABG Total CO2 (19-24) mmol/L ABG O2 Saturation (94-97) % Sodium (137-145) mmol/L Potassium (3.5-5.1) mmol/L Chloride (98-107) mmol/L Carbon Dioxide (22-30) mmol/L BUN (9-20) mg/dL Creatinine (0.66-1.25) mg/dL Glucose (74-99) mg/dL POC Glucose (mg/dL) 149 H (70-110) mg/dL Hemoglobin A1c (0.0-6.0) % Calcium (8.4-10.2) mg/dL Phosphorus (2.5-4.5) mg/dL Magnesium (1.6-2.3) mg/dL ALT (4-49) U/L Alkaline Phosphatase (38-126) U/L Troponin I (0.000-0.034) ng/mL
[2022-05-30 20:33] LABS: Glucose,Whole Blood 147 mg/dL (70-110)
[2022-05-30] MEDS: GABAPENTIN 300 MG CAP PO SCH (20:46)
[2022-05-30] MEDS: LORazepam 0.5 MG TAB PO SCH (20:46)
[2022-05-30] MEDS: ATORVASTATIN 40 MG TAB PO SCH (20:46)
[2022-05-30] MEDS: HEPARIN SODIUM,PORCINE/PF 5,000 UNIT/0.5 ML SYRINGE SQ SCH (23:50)
[2022-05-31] MEDS: IPRATROPIUM-ALBUTEROL 3 ML NEB INHALATION SCH ×6 (00:07→19:57)
[2022-05-31] MEDS: LORazepam 2 MG/ML INJ IV PRN ×2 (04:03→18:26)
[2022-05-31 06:16] LABS: Glucose,Whole Blood 137 mg/dL (70-110)
[2022-05-31] MEDS: INSULIN ASPART (NovoLOG) 100 UNIT/ML VIAL SQ SCH ×4 (06:31→21:44)
--- NOTE | 2022-05-31 07:09 | P.PN ---
Subjective Progress Note Date: 05/31/22 Principal diagnosis: Heart failure The patient is an 89-year-old gentleman with a past medical history significant for severe cardiomyopathy with the last echo from 2020 showing an ejection fraction of 35% as well as known valvular heart disease was moderate aortic stenosis and moderate MR and moderate TR as well as diabetes and hypertension and dyslipidemia and underlying dementia. Currently the patient is residing at [facility]. We consulted to see the patient for further evaluation of shortness of breath. The patient was seen and evaluated bedside. He does have significant change in mental status and his poor historian and history was taken from the chart as well as from the nurse taking care of the patient. Apparently the patient was found to be hypoxic at the [facility] facility. His oxygen saturation was in the 80s. He was brought to the emergency department for further evaluation. He was placed on BiPAP to keep his oxygen saturation above 90%. He was experiencing some increasing shortness of breath but no indication that he was experiencing increasing in the lower extremities edema and no symptoms of chest pain or chest discomfort and no dizziness or lightheadedness and no presyncope or syncope. He underwent a workup during the emergency department including chest x-ray showed findings consistent was failure with pulmonary vascular congestion as well as anti-proBNP which came in to be elevated at 20,000. The EKG showed sinus rhythm with sinus tachycardia likely related to respiratory distress. His troponin came in to be slightly elevated. The EKG did not show any ischemic changes. The patient subsequently was admitted to the hospital and was started on Lasix at 80 mg IV twice a day. His weight today which is about 24 hours since he was admitted has not changed as of yet. He continues to be hypoxic at this point he continues to require BiPAP to keep the oxygen saturation above 90%. 06/01/2022 The patient was seen this morning. He is confused. He continues to be hypoxic and requiring 10 L of oxygen to maintain saturation above 90s. Currently is on Lasix IV at 80 mg twice a day. Kidney function still pending. On examination he continues to have diminished breathing sounds bilaterally with mild bilateral lower extremities edema. At this point I'll continue the current dose of Lasix IV, assuming his kidney function remained stable, and continue follow-up with the patient. Objective - Vital Signs Vital signs: Vital Signs Temp 97.3 F L 05/30/22 23:54 Pulse 86 05/31/22 03:57 Resp 20 05/31/22 04:35 BP 118/72 05/31/22 03:57 Pulse Ox 97 05/31/22 04:35 FiO2 50 05/31/22 04:35 Intake & Output 05/30/22 05/31/22 05/31/22 18:59 06:59 18:59 Intake Total 20 10 Output Total 1750 1450 Balance -1730 -1440 Intake: IV 20 10 Invasive Line 1 20 10 Output: Urine 1750 1450 Uretheral (Sandoval) 500 Other: Voiding Method Indwelling Catheter Indwelling Catheter # Bowel Movements 1 - Constitutional General appearance: Present: no acute distress - Labs CBC & Chem 7: 05/30/22 09:08 05/30/22 09:08 Labs: Abnormal Lab Results - Last 24 Hours (Table) 05/29/22 05/30/22 05/30/22 Range/Units 18:13 09:08 09:08 WBC 12.7 H (3.8-10.6) k/uL Plt Count 134 L (150-450) k/uL Neutrophils # 11.4 H (1.3-7.7) k/uL Lymphocytes # 0.3 L (1.0-4.8) k/uL ABG pH 7.18 L* (7.35-7.45) ABG pCO2 79 H* (35-45) mmHg ABG pO2 79 L (83-108) mmHg ABG HCO3 29 H (21-25) mmol/L ABG Total CO2 32 H (19-24) mmol/L ABG O2 Saturation (94-97) % Sodium 136 L (137-145) mmol/L Potassium 5.4 H (3.5-5.1) mmol/L Chloride 97 L (98-107) mmol/L Carbon Dioxide 32 H (22-30) mmol/L BUN 110 H* (9-20) mg/dL Creatinine 1.67 H (0.66-1.25) mg/dL Glucose 154 H (74-99) mg/dL POC Glucose (mg/dL) (70-110) mg/dL Calcium 8.1 L (8.4-10.2) mg/dL Phosphorus 6.1 H (2.5-4.5) mg/dL Magnesium 2.9 H (1.6-2.3) mg/dL ALT 85 H (4-49) U/L Alkaline Phosphatase 155 H (38-126) U/L 05/30/22 05/30/22 05/30/22 Range/Units 11:27 12:07 16:33 WBC (3.8-10.6) k/uL Plt Count (150-450) k/uL Neutrophils # (1.3-7.7) k/uL Lymphocytes # (1.0-4.8) k/uL ABG pH 7.29 L (7.35-7.45) ABG pCO2 64 H (35-45) mmHg ABG pO2 47 L* (83-108) mmHg ABG HCO3 31 H (21-25) mmol/L ABG Total CO2 33 H (19-24) mmol/L ABG O2 Saturation 80.7 L (94-97) % Sodium (137-145) mmol/L Potassium (3.5-5.1) mmol/L Chloride (98-107) mmol/L Carbon Dioxide (22-30) mmol/L BUN (9-20) mg/dL Creatinine (0.66-1.25) mg/dL Glucose (74-99) mg/dL POC Glucose (mg/dL) 155 H 149 H (70-110) mg/dL Calcium (8.4-10.2) mg/dL Phosphorus (2.5-4.5) mg/dL Magnesium (1.6-2.3) mg/dL ALT (4-49) U/L Alkaline Phosphatase (38-126) U/L 05/30/22 05/31/22 Range/Units 20:31 06:14 WBC (3.8-10.6) k/uL Plt Count (150-450) k/uL Neutrophils # (1.3-7.7) k/uL Lymphocytes # (1.0-4.8) k/uL ABG pH (7.35-7.45) ABG pCO2 (35-45) mmHg ABG pO2 (83-108) mmHg ABG HCO3 (21-25) mmol/L ABG Total CO2 (19-24) mmol/L ABG O2 Saturation (94-97) % Sodium (137-145) mmol/L Potassium (3.5-5.1) mmol/L Chloride (98-107) mmol/L Carbon Dioxide (22-30) mmol/L BUN (9-20) mg/dL Creatinine (0.66-1.25) mg/dL Glucose (74-99) mg/dL POC Glucose (mg/dL) 147 H 137 H (70-110) mg/dL Calcium (8.4-10.2) mg/dL Phosphorus (2.5-4.5) mg/dL Magnesium (1.6-2.3) mg/dL ALT (4-49) U/L Alkaline Phosphatase (38-126) U/L Assessment and Plan Assessment: Assessment Acute hypoxic respiratory failure Acute exacerbation of heart failure with reduced ejection fraction Valvular heart disease Severe cardiomyopathy Hypertension Dyslipidemia Diabetes Plan Continue current dose of Lasix IV Continue monitor the kidney function and electrolytes No need to repeat the echo in the light of recent echo from 2020 Follow-up with the patient
[2022-05-31 07:52] LABS: HCT 42.5 % (39.0-53.0); HGB 12.9 gm/dL (13.0-17.5); Hypochromasia Moderate; MCH 27.6 pg (25.0-35.0); MCHC 30.4 g/dL (31.0-37.0); MCV 90.8 fL (80.0-100.0); Mean Platelet Volume 9.6; Platelet Count 173 k/uL (150-450); RBC 4.69 m/uL (4.30-5.90); RDW 13.6 % (11.5-15.5); WBC 17.6 k/uL (3.8-10.6)
[2022-05-31 08:05] LABS: Albumin 3.8 g/dL (3.5-5.0); Calcium 8.3 mg/dL (8.4-10.2); Magnesium 2.9 mg/dL (1.6-2.3); Phosphorus 5.4 mg/dL (2.5-4.5); Total Bilirubin 0.9 mg/dL (0.2-1.3); Total Protein 6.9 g/dL (6.3-8.2)
[2022-05-31] MEDS: FLUTICASONE 50MCG/SPRAY NASAL 16GM EA NOSTRIL SCH (09:03)
[2022-05-31] MEDS: ASPIRIN 81 MG PO SCH (09:07)
[2022-05-31] MEDS: FUROSEMIDE 10 MG/ML 10 ML VIAL IV SCH ×2 (09:07→21:31)
[2022-05-31] MEDS: LORATADINE 10 MG TAB PO SCH (09:08)
[2022-05-31] MEDS: CLOPIDOGREL 75 MG TAB PO SCH (09:08)
[2022-05-31] MEDS: guaiFENesin 600 MG TABLET.ER PO SCH ×2 (09:08→21:30)
[2022-05-31] MEDS: HEPARIN SODIUM,PORCINE/PF 5,000 UNIT/0.5 ML SYRINGE SQ SCH ×3 (09:08→23:52)
[2022-05-31 11:29] LABS: Glucose,Whole Blood 149 mg/dL (70-110)
[2022-05-31 13:21] VITALS: BMI 40.6
--- NOTE | 2022-05-31 13:44 | P.PN ---
Subjective Progress Note Date: 05/31/22 This is an 89-year-old male patient with morbid obesity, chronic venous stasis, congestive heart failure, coronary artery disease, hypertension, hyperlipidemia, diabetes mellitus, daily fever, former smoker. [facility] and had been having increasing shortness of breath cough and congestion for 2 days prior. He had been put on oxygen and antibiotics without much improvement. He was brought in by EMS yesterday after they patient was found cyanotic. Minimal air exchange. He was quite lethargic. He was arousing to verbal stimuli. Poor historian. Chest x-ray revealed evidence of cardiomegaly, pulmonary vascular congestion and bilateral pleural effusions. Evidence of congestive heart failure. White count 12.7. Hemoglobin 13.0. Sodium 136. Potassium 5.4. Bicarb 32. BUN 110. Creatinine 1.67. Glucose 154. Initial blood gases on 40% FiO2 revealed a PaO2 of 81, pCO2 of 78 and a pH is 7.12. He was on BiPAP 18/6 and increased to 50% FiO2. His follow-up blood gases revealed a PaO2 of 101, pCO2 of 73 and a pH is 7.20. He is seen today in consultation on the regular medical floor. He is arousable. Poor historian. Continued on BiPAP. He is initiated on DuoNeb inhalations. IV diuretics. Currently on a 1.8 L negative balance. The patient is seen today 05/31/2022 in follow-up on the selective care unit. He is currently resting comfortably in bed. He is currently on 10 L high flow nasal cannula O2 saturations in the low 90s. He is alternating with BiPAP 14/660% FiO2. Chest x-ray reveals evidence of mild congestive heart failure. Improving. White count 17.6. Hemoglobin 12.9. Platelets 173. Sodium 142. Potassium 5.0. Bicarb 35. BUN 105. Creatinine 1.40. Glucose 147. AST 43. ALT 74. He is continued on Lasix 80 mg IV every 12 hours. Currently in a -3 L balance. Continued on bronchodilators. Heparin for DVT prophylaxis. Objective - Vital Signs Vital signs: Vital Signs Temp 98 F 05/31/22 12:00 Pulse 101 H 05/31/22 11:53 Resp 20 05/31/22 12:14 BP 148/66 05/31/22 12:00 Pulse Ox 95 05/31/22 12:00 FiO2 50 05/31/22 04:35 Intake & Output 05/30/22 05/31/22 05/31/22 18:59 06:59 18:59 Intake Total 20 10 Output Total 1750 1450 600 Balance -1730 -1440 -600 Weight 136.078 kg Intake: IV 20 10 Invasive Line 1 20 10 Output: Urine 1750 1450 600 Uretheral (Sandoval) 500 Other: Voiding Method Indwelling Catheter Indwelling Catheter Indwelling Catheter # Bowel Movements 1 - Exam GENERAL EXAM: Arousable, morbidly obese 89-year-old male patient, on 10 L high flow nasal cannula, fairly comfortable in no apparent distress. HEAD: Normocephalic. EYES: Normal reaction of pupils, equal size. NOSE: Clear with pink turbinates. THROAT: No erythema or exudates. NECK: No masses, no JVD. CHEST: No chest wall deformity. LUNGS: Equal air entry with crackles in the posterior bases. CVS: S1 and S2 normal with no audible murmur, regular rhythm. ABDOMEN: No hepatosplenomegaly, normal bowel sounds, no guarding or rigidity. SPINE: No scoliosis or deformity SKIN: No rashes CENTRAL NERVOUS SYSTEM: No focal deficits, tone is normal in all 4 extremities. EXTREMITIES: There is changes of chronic venous stasis, 1-2+ peripheral edema. No clubbing, no cyanosis. Peripheral pulses are intact. - Labs CBC & Chem 7: 05/31/22 07:32 05/31/22 07:32 Labs: Abnormal Lab Results - Last 24 Hours (Table) 05/30/22 05/30/22 05/31/22 Range/Units 16:33 20:31 06:14 WBC (3.8-10.6) k/uL Hgb (13.0-17.5) gm/dL MCHC (31.0-37.0) g/dL Carbon Dioxide (22-30) mmol/L BUN (9-20) mg/dL Creatinine (0.66-1.25) mg/dL Glucose (74-99) mg/dL POC Glucose (mg/dL) 149 H 147 H 137 H (70-110) mg/dL Calcium (8.4-10.2) mg/dL Phosphorus (2.5-4.5) mg/dL Magnesium (1.6-2.3) mg/dL ALT (4-49) U/L Alkaline Phosphatase (38-126) U/L 05/31/22 05/31/22 05/31/22 Range/Units 07:32 07:32 11:27 WBC 17.6 H (3.8-10.6) k/uL Hgb 12.9 L (13.0-17.5) gm/dL MCHC 30.4 L (31.0-37.0) g/dL Carbon Dioxide 35 H (22-30) mmol/L BUN 105 H* (9-20) mg/dL Creatinine 1.40 H (0.66-1.25) mg/dL Glucose 147 H (74-99) mg/dL POC Glucose (mg/dL) 149 H (70-110) mg/dL Calcium 8.3 L (8.4-10.2) mg/dL Phosphorus 5.4 H (2.5-4.5) mg/dL Magnesium 2.9 H (1.6-2.3) mg/dL ALT 74 H (4-49) U/L Alkaline Phosphatase 163 H (38-126) U/L Assessment and Plan Assessment: Acute on chronic hypoxemic respiratory failure secondary to systolic congestive heart failure in a patient with a known ejection fraction of 30-35% Acute on chronic hypercapnic respiratory failure in a patient who is morbidly obese and suspected obesity/hypoventilation syndrome/sleep apnea Morbid obesity with a BMI of 40 kg/m History of coronary artery disease Moderate aortic stenosis History of chronic obstructive pulmonary disease Former smoker Diabetes mellitus Hypertension Hyperlipidemia [facility] resident Poor overall functional performance based on the above-mentioned multiple comorbidities Plan: The patient was seen and evaluated Chest x-ray, labs and medications reviewed Continue IV diuretics, remains in a negative balance Continue oxygen at 10 L high flow nasal cannula alternating with BiPAP Continue bronchodilators DO NOT RESUSCITATE/DO NOT INTUBATE CODE STATUS We'll continue to follow I have personally seen and examined the patient, performed the documentation and the assessment and plan as written. Number of minutes spent on the visit: 20.
--- NOTE | 2022-05-31 14:08 | CA ---
Transthoracic Echo Report Name: Miguel Angel Melchro Age: 89 Gender: M : [id number] Exam Date: 05/31/2022 09:25 Exam Location: [facility] Ht (in): 72 Wt (lb): 300 Ordering Physician: Annemarie Rodriges DO Attending/Referring Phys: [id number], Zahira Band Cutter Devi Campoverde, CHRISSY Procedure CPT: Indications: Heart failure Cardiac Hx: Morbid Obesity Technical Quality: Very technically difficult study Contrast 1: Lumason Total Dose (mL): 4 Contrast 2: Total Dose (mL): MEASUREMENTS (Male / Female) Normal Values 2D ECHO LV Diastolic Diameter PLAX 6.8 cm 4.2 - 5.9 / 3.9 - 5.3 cm LV Systolic Diameter PLAX 4.7 cm IVS Diastolic Thickness 1.8 cm 0.6 - 1.0 / 0.6 - 0.9 cm LVPW Diastolic Thickness 1.4 cm 0.6 - 1.0 / 0.6 - 0.9 cm LV Relative Wall Thickness 0.5 DOPPLER TR Peak Velocity 258.6 cm/s TR Peak Gradient 26.7 mmHg FINDINGS Left Ventricle Left ventricular dilatation. Moderately reduced global left ventricular systolic function. Left ventricular ejection fraction is estimated at 30%. Right Ventricle Right ventricular dilatation. Right Atrium Right atrium not well visualized. Left Atrium Left atrium not well visualized. Mitral Valve Structurally normal mitral valve. Mild mitral regurgitation. Aortic Valve Aortic valve sclerosis. Tricuspid Valve Tricuspid valve not well visualized. Pulmonic Valve Pulmonic valve not well visualized. Pericardium Normal pericardium. Aorta Aortic root and proximal ascending aorta not well visualized. CONCLUSIONS Impaired LV function was EF of around 30% Technically difficult study for interpretation Previewed by: Dr. Marlon Cyr MD (Electronically Signed) Final Date: 31 May 2022 14:07
--- NOTE | 2022-05-31 15:56 | P.PN ---
Progress Note - Text Progress Note Date: 05/31/22 Hospital course: Patient is a an 89-year-old male with known diabetes, hypertension, dy slipidemia, and coronary artery disease who presented to the hospital from his halfway due to low oxygen levels and decreased responsiveness. On arrival to the ER his initial vital signs were within normal limits. O2 sat was 96% on a mask. Laboratory analysis was remarkable for sodium 133, potassium 5.6, BUN 104, creatinine 1.8, AST 78, ALT 102, troponin 0.062, and BNP 23,300. Initial ABG showed pH of 7.19 with pO2 78. Patient was transitioned to BiPAP. Chest x- ray showed cardiomegaly with pulmonary venous congestion and bilateral pleural effusions. He was given a dose of Lasix. Arrangements were made for admission. He continued to be acidotic and his BiPAP settings were optimized. He was continued on scheduled Lasix. Cardiology and pulmonary were consulted. Patient seen and examined at bedside. He again is lethargic. He does open eyes to sternal rub. He tries to that my hand away but he is not conversational. No family present at bedside. 05/31/2022: I assumed care of patient today Patient is slightly restless. Has a niece at the bedside. Some blood in the Sandoval catheter. Not eating much. Had half a toast earlier. Ensure ordered. Patient only answering occasional question. Bit of traumatic hematuria with Sandoval catheter. Flush bladder. Prognosis guarded. Discussed with niece at the bedside. Active Medications Albuterol/Ipratropium (Ipratropium-Albuterol 3 Ml Neb) 3 ml INHALATION RT-Q4H [facility] Last Admin: 05/31/22 11:40 Dose: 3 ml Aspirin (Aspirin 81 Mg) 81 mg PO DAILY [facility] Last Admin: 05/31/22 09:07 Dose: 81 mg Atorvastatin Calcium (Atorvastatin 40 Mg Tab) 40 mg PO HS [facility] Last Admin: 05/30/22 20:46 Dose: 40 mg Clopidogrel Bisulfate (Clopidogrel 75 Mg Tab) 75 mg PO DAILY [facility] Last Admin: 05/31/22 09:08 Dose: 75 mg Dextrose/Water (Dextrose 50% Syringe 50 Ml) 25 ml IVP PER PROTOCOL PRN; Protocol PRN Reason: Hypoglycemia Dextrose/Water (Dextrose 50% Syringe 50 Ml) 50 ml IVP PER PROTOCOL PRN; Pr otocol PRN Reason: Hypoglycemia Fluticasone Propionate (Fluticasone 50mcg/[place] Nasal 16gm) 1 spray EA NOSTRIL DAILY@0800 [facility] Last Admin: 05/31/22 09:03 Dose: Not Given Furosemide (Furosemide 10 Mg/Ml 10 Ml Vial) 80 mg IV Q12HR [facility] Last Admin: 05/31/22 09:07 Dose: 80 mg Gabapentin (Gabapentin 300 Mg Cap) 300 mg PO [facility] Last Admin: 05/30/22 20:46 Dose: 300 mg Guaifenesin (Guaifenesin 600 Mg Tablet.Er) 600 mg PO BID@0800,2000 [facility] Last Admin: 05/31/22 09:08 Dose: 600 mg Heparin Sodium (Porcine) (Heparin Sodium,Porcine/Pf 5,000 Unit/0.5 Ml Syringe) 5,000 unit SQ Q8HR [facility] Last Admin: 05/31/22 09:08 Dose: 5,000 unit Insulin Aspart (Insulin Aspart (Novolog) 100 Unit/Ml Vial) 0 unit SQ ACHS [facility]; Protocol Last Admin: 05/31/22 12:13 Dose: Not Given Loratadine (Loratadine 10 Mg Tab) 10 mg PO DAILY [facility] Last Admin: 05/31/22 09:08 Dose: 10 mg Lorazepam (Lorazepam 0.5 Mg Tab) 0.5 mg PO [facility] Last Admin: 05/30/22 20:46 Dose: 0.5 mg Lorazepam (Lorazepam 2 Mg/Ml Inj) 0.5 mg IV Q6HR PRN PRN Reason: Anxiety Last Admin: 05/31/22 04:03 Dose: 0.5 mg Naloxone HCl (Naloxone 0.4 Mg/Ml 1 Ml Vial) 0.2 mg IV Q2M PRN PRN Reason: Opioid Reversal Tramadol HCl (Tramadol 50 Mg Tab) 50 mg PO Q8H PRN PRN Reason: Pain On examination: VITAL SIGNS: [98, 100, 22, 1 48 x 66, 95% on 10 L] GENERAL APPEARANCE: BMI 40.7, somewhat restless. HEENT: Normal external appearance of nose and ear. Oral cavity normal EYES: Pupils equal. Conjunctiva normal. NECK: JVD unable to assess. Mass not palpable. RESPIRATORY: Respiratory effort increased Lungs decreased breath sounds mild wheezing CARDIOVASCULAR: First and second sounds normal. No edema. ABDOMEN: Soft. Liver and spleen not palpable. No tenderness. No mass palpable. PSYCHIATRY: May answer occasional question. Some anxiety INVESTIGATIONS, reviewed in the clinical context: 2-D echocardiogram: EF 30%. Right ventricle dilated. Technical difficulties. 05/31/2022: WBC 17.6 hemoglobin 12.9 platelets 173 potassium 5 BUN 105 creatinine 1.4 AST 74 ALT was 63 Assessment/Plan: -Acute exacerbation of systolic CHF , EF 35%, slow to respond IV Lasix 80 mg every 12 -Elevated Troponin, Type II [place] Aspirin -TRAVIS due to Cardiorenal syndrome -slow to respond -Hyperkalemia : Some improvement -Transaminitis due to hepatic congestion -HTN Currently on diuretics -Acute on chronic Hypercapnic respiratory failure due to obesity hypoventilation syndrome BiPAP -Acute encephalopathy, for delirium multifactorial slow to respond Treat underlying conditions -DM 2, chronically on oral hypoglycemic Hold metformin. Follow Accu-Cheks -Hyperlipidemia Lipitor -Chronic thrombocytopenia Currently platelets good -Hematuria likely traumatic from Sandoval catheter Flush Sandoval catheter. -DO NOT RESUSCITATE
[2022-05-31 16:54] LABS: Glucose,Whole Blood 177 mg/dL (70-110)
[2022-05-31 20:22] LABS: Glucose,Whole Blood 197 mg/dL (70-110)
[2022-05-31] MEDS: traMADol 50 MG TAB PO PRN (21:30)
[2022-05-31] MEDS: GABAPENTIN 300 MG CAP PO SCH (21:30)
[2022-05-31] MEDS: LORazepam 0.5 MG TAB PO SCH (21:30)
[2022-05-31] MEDS: ATORVASTATIN 40 MG TAB PO SCH (21:30)
[2022-06-01] MEDS: IPRATROPIUM-ALBUTEROL 3 ML NEB INHALATION SCH ×6 (00:51→19:00)
[2022-06-01 03:52] VITALS: TEMP 97.6
[2022-06-01] MEDS: LORazepam 2 MG/ML INJ IV PRN ×3 (05:30→21:00)
[2022-06-01] MEDS ORDERED: METOPROLOL TARTRATE 25 MG TAB PO STA (06:12)
[2022-06-01 06:24] LABS: Glucose,Whole Blood 147 mg/dL (70-110)
[2022-06-01] MEDS: INSULIN ASPART (NovoLOG) 100 UNIT/ML VIAL SQ SCH ×4 (06:27→21:00)
[2022-06-01] MEDS: HEPARIN SODIUM,PORCINE/PF 5,000 UNIT/0.5 ML SYRINGE SQ SCH ×2 (08:05→17:04)
[2022-06-01] MEDS: ASPIRIN 81 MG PO SCH (08:06)
[2022-06-01] MEDS: CLOPIDOGREL 75 MG TAB PO SCH (08:06)
[2022-06-01] MEDS: guaiFENesin 600 MG TABLET.ER PO SCH ×2 (08:06→20:59)
[2022-06-01] MEDS: LORATADINE 10 MG TAB PO SCH (08:06)
[2022-06-01] MEDS: FUROSEMIDE 10 MG/ML 10 ML VIAL IV SCH (08:07)
[2022-06-01] MEDS: FLUTICASONE 50MCG/SPRAY NASAL 16GM EA NOSTRIL SCH (08:07)
[2022-06-01 08:20] LABS: Calcium 8.2 mg/dL (8.4-10.2); Potassium 4.6 mmol/L (3.5-5.1)
[2022-06-01 11:46] LABS: Glucose,Whole Blood 218 mg/dL (70-110)
--- NOTE | 2022-06-01 14:11 | P.PN ---
Subjective Progress Note Date: 06/01/22 HISTORY OF PRESENT ILLNESS The patient is an 89-year-old gentleman with a past medical history significant for severe cardiomyopathy with the last echo from 2020 showing an ejection fraction of 35% as well as known valvular heart disease was moderate aortic stenosis and moderate MR and moderate TR as well as diabetes and hypertension and dyslipidemia and underlying dementia. Currently the patient is residing at [facility]. We consulted to see the patient for further evaluation of shortness of breath. The patient was seen and evaluated bedside. He does have significant change in mental status and his poor historian and history was taken from the chart as well as from the nurse taking care of the patient. Apparently the patient was found to be hypoxic at the [facility] care facility. His oxygen saturation was in the 80s. He was brought to the emergency department for further evaluation. He was placed on BiPAP to keep his oxygen saturation above 90%. He was experiencing some increasing shortness of breath but no indication that he was experiencing increasing in the lower extremities edema and no symptoms of chest pain or chest discomfort and no dizziness or lightheadedness and no presyncope or syncope. He underwent a workup during the emergency department including chest x-ray showed findings consistent was failure with pulmonary vascular congestion as well as anti-proBNP which came in to be elevated at 20,000. The EKG showed sinus rhythm with sinus tachycardia li marianne related to respiratory distress. His troponin came in to be slightly elevated. The EKG did not show any ischemic changes. The patient subsequently was admitted to the hospital and was started on Lasix at 80 mg IV twice a day. His weight today which is about 24 hours since he was admitted has not changed as of yet. He continues to be hypoxic at this point he continues to require BiPAP to keep the oxygen saturation above 90%. 05/31/2022 The patient was seen this morning. He is confused. He continues to be hypoxic and requiring 10 L of oxygen to maintain saturation above 90s. Currently is on Lasix IV at 80 mg twice a day. Kidney function still pending. On examination he continues to have diminished breathing sounds bilaterally with mild bilateral lower extremities edema. At this point I'll continue the current dose of Lasix IV, assuming his kidney function remained stable, and continue follow-up with the patient. 06/01 Patient denies having any chest pain. He is currently on Lasix 80 mg IV twice daily. Heart rate in the 80s, blood pressure 120/73, pulse ox 95% on high flow nasal cannula 15 L. security monitor sinus rhythm. Repeat blood work reveals potassium 4.6, BUN 97 creatinine 1.23. Echocardiogram reveals EF of 30%, technically difficult study. Mild mitral re gurgitation. PHYSICAL EXAMINATION Gen: This is an 89-year-old male, resting in bed appears to be comfortable. No acute distress noted. VS: reviewed HEENT: Head is atraumatic, normocephalic. Pupils equal, round. Sclerae is anicteric. NECK: Supple. No JVD. No lymphadenopathy. LUNGS: Diminished bilaterally. No intercostal retractions. HEART: Regular rate and rhythm. No murmur. ABDOMEN: Soft. No tenderness. EXTREMITIES: No pedal edema. No calf tenderness. NEUROLOGICAL: Patient is awake, alert and oriented x3. Assessment Acute hypoxic respiratory failure Acute exacerbation of heart failure with reduced ejection fraction Valvular heart disease Severe cardiomyopathy Hypertension Dyslipidemia Diabetes Plan Transition IV Lasix to oral 80 mg twice daily Continue monitor the kidney function and electrolytes Follow-up with the patient Nurse practitioner note has been reviewed, I agree with documented findings and plan of care. Patient was seen and examined. Objective - Vital Signs Vital signs: Vital Signs Temp 97.6 F 06/01/22 03:50 Pulse 95 06/01/22 08:00 Resp 21 06/01/22 08:24 BP 119/64 06/01/22 08:00 Pulse Ox 89 L 06/01/22 08:00 FiO2 50 06/01/22 03:50 Intake & Output 05/31/22 06/01/22 06/01/22 18:59 06:59 18:59 Intake Total 10 Output Total 600 2100 Balance -600 -2090 Weight 136.078 kg 136 kg Intake: IV 10 Invasive Line 2 10 Output: Urine 600 2100 Other: Voiding Method Indwelling Catheter Indwelling Catheter Indwelling Catheter - Labs CBC & Chem 7: 05/31/22 07:32 06/01/22 06:41 Labs: Abnormal Lab Results - Last 24 Hours (Table) 05/31/22 05/31/22 05/31/22 Range/Units 11:27 16:48 20:21 Carbon Dioxide (22-30) mmol/L BUN (9-20) mg/dL Glucose (74-99) mg/dL POC Glucose (mg/dL) 149 H 177 H 197 H (70-110) mg/dL Calcium (8.4-10.2) mg/dL 06/01/22 06/01/22 Range/Units 06:23 06:41 Carbon Dioxide 34 H (22-30) mmol/L BUN 97 H (9-20) mg/dL Glucose 130 H (74-99) mg/dL POC Glucose (mg/dL) 147 H (70-110) mg/dL Calcium 8.2 L (8.4-10.2) mg/dL
--- NOTE | 2022-06-01 14:42 | P.PN ---
Subjective Progress Note Date: 06/01/22 This is an 89-year-old male patient with morbid obesity, chronic venous stasis, congestive heart failure, coronary artery disease, hypertension, hyperlipidemia, diabetes mellitus, daily fever, former smoker. He resides in a long term facility and had been having increasing shortness of breath cough and congestion for 2 days prior. He had been put on oxygen and antibiotics without much improvement. He was brought in by EMS yesterday after they patient was found cyanotic. Minimal air exchange. He was quite lethargic. He was arousing to verbal stimuli. Poor historian. Chest x-ray revealed evidence of cardiomegaly, pulmonary vascular congestion and bilateral pleural effusions. Evidence of congestive heart failure. White count 12.7. Hemoglobin 13.0. Sodium 136. Potassium 5.4. Bicarb 32. BUN 110. Creatinine 1.67. Glucose 154. Initial blood gases on 40% FiO2 revealed a PaO2 of 81, pCO2 of 78 and a pH is 7.12. He was on BiPAP 18/6 and increased to 50% FiO2. His follow-up blood gases revealed a PaO2 of 101, pCO2 of 73 and a pH is 7.20. He is seen today in consultation on the regular medical floor. He is arousable. Poor historian. Continued on BiPAP. He is initiated on DuoNeb inhalations. IV diuretics. Currently on a 1.8 L negative balance. The patient is seen today 05/31/2022 in follow-up on the selective care unit. He is currently resting comfortably in bed. He is currently on 10 L high flow nasal cannula O2 saturations in the low 90s. He is alternating with BiPAP 14/660% FiO2. Chest x-ray reveals evidence of mild congestive heart failure. Improving. White count 17.6. Hemoglobin 12.9. Platelets 173. Sodium 142. Potassium 5.0. Bicarb 35. BUN 105. Creatinine 1.40. Glucose 147. AST 43. ALT 74. He is continued on Lasix 80 mg IV every 12 hours. Currently in a -3 L balance. Continued on bronchodilators. Heparin for DVT prophylaxis. The patient is seen today 06/01/2022 in follow-up on the selective care unit. He is currently laying in bed. Quite restless. Moving all about. Sitter is at the bedside. Required 15 L high flow nasal cannula when off the BiPAP which is programmed at 14/6 and 50% FiO2. Echocardiogram revealed severely impaired left ventricular systolic function with ejection fraction of 30%. Sodium 142. Potas sium 4.6. Bicarb 34. BUN 97. Creatinine 1.23. GFR 52. Glucose 130. He is currently in a -2.6 L balance. Remains on oral diuretics. Bronchodilators. Heparin for DVT prophylaxis. Objective - Vital Signs Vital signs: Vital Signs Temp 97.6 F 06/01/22 03:50 Pulse 88 06/01/22 11:57 Resp 20 06/01/22 13:34 BP 128/73 06/01/22 11:43 Pulse Ox 95 06/01/22 11:43 FiO2 50 06/01/22 03:50 Intake & Output 05/31/22 06/01/22 06/01/22 18:59 06:59 18:59 Intake Total 10 180 Output Total 600 2100 300 Balance -600 -2089 -120 Weight 136.078 kg 136 kg Intake: IV 10 Invasive Line 2 10 Oral 180 Output: Urine 600 2100 300 Other: Voiding Method Indwelling Catheter Indwelling Catheter Indwelling Catheter - Exam GENERAL EXAM: Alert, confused, morbidly obese, restless 89-year-old male patient, on 15 L high flow nasal cannula, fairly comfortable in no apparent distress. HEAD: Normocephalic. EYES: Normal reaction of pupils, equal size. NOSE: Clear with pink turbinates. THROAT: No erythema or exudates. NECK: No masses, no JVD. CHEST: No chest wall deformity. LUNGS: Equal air entry with crackles in the posterior bases. CVS: S1 and S2 normal with no audible murmur, regular rhythm. ABDOMEN: No hepatosplenomegaly, normal bowel sounds, no guarding or rigidity. SPINE: No scoliosis or deformity SKIN: No rashes CENTRAL NERVOUS SYSTEM: No focal deficits, tone is normal in all 4 extremities. EXTREMITIES: There is changes of chronic venous stasis, 1-2+ peripheral edema. No clubbing, no cyanosis. Peripheral pulses are intact. - Labs CBC & Chem 7: 05/31/22 07:32 06/01/22 06:41 Labs: Abnormal Lab Results - Last 24 Hours (Table) 05/31/22 05/31/22 06/01/22 Range/Units 16:48 20:21 06:23 Carbon Dioxide (22-30) mmol/L BUN (9-20) mg/dL Glucose (74-99) mg/dL POC Glucose (mg/dL) 177 H 197 H 147 H (70-110) mg/dL Calcium (8.4-10.2) mg/dL 06/01/22 06/01/22 Range/Units 06:41 11:44 Carbon Dioxide 34 H (22-30) mmol/L BUN 97 H (9-20) mg/dL Glucose 130 H (74-99) mg/dL POC Glucose (mg/dL) 218 H (70-110) mg/dL Calcium 8.2 L (8.4-10.2) mg/dL Assessment and Plan Assessment: Acute on chronic hypoxemic respiratory failure secondary to systolic congestive heart failure in a patient with a known ejection fraction of 30% Acute on chronic hypercapnic respiratory failure in a patient who is morbidly obese and suspected obesity/hypoventilation syndrome/sleep apnea Morbid obesity with a BMI of 40 kg/m History of coronary artery disease Moderate aortic stenosis History of chronic obstructive pulmonary disease Former smoker Diabetes mellitus Hypertension Hyperlipidemia retirement resident Poor overall functional performance based on the above-mentioned multiple comorbidities Plan: The patient was seen and evaluated Echocardiogram, labs and medications reviewed Continue diuretics, remains in a negative balance Continue oxygen at 15 L high flow nasal cannula alternating with BiPAP Titrate the FiO2 as tolerated Prognosis remains quite guarded and poor Hospice consult placed DO NOT RESUSCITATE/DO NOT INTUBATE CODE STATUS We'll continue to follow I have personally seen and examined the patient, performed the documentation and the assessment and plan as written. Number of minutes spent on the visit: 10.
[2022-06-01] MEDS ORDERED: HALOPERIDOL LACTATE 5 MG/ML 1 ML VIAL IM PRN (15:56)
[2022-06-01] MEDS ORDERED: FUROSEMIDE 80 MG TAB PO SCH (16:00)
--- NOTE | 2022-06-01 16:39 | P.PN ---
Progress Note - Text Progress Note Date: 06/01/22 Hospital course: Patient is a an 89-year-old male with known diabetes, hypertension, d yslipidemia, and coronary artery disease who presented to the hospital from his care home due to low oxygen levels and decreased responsiveness. On arrival to the ER his initial vital signs were within normal limits. O2 sat was 96% on a mask. Laboratory analysis was remarkable for sodium 133, potassium 5.6, BUN 104, creatinine 1.8, AST 78, ALT 102, troponin 0.062, and BNP 23,300. Initial ABG showed pH of 7.19 with pO2 78. Patient was transitioned to BiPAP. Chest x- ray showed cardiomegaly with pulmonary venous congestion and bilateral pleural effusions. He was given a dose of Lasix. Arrangements were made for admission. He continued to be acidotic and his BiPAP settings were optimized. He was continued on scheduled Lasix. Cardiology and pulmonary were consulted. Patient seen and examined at bedside. He again is lethargic. He does open eyes to sternal rub. He tries to that my hand away but he is not conversational. No family present at bedside. 05/31/2022: I assumed care of patient today Patient is slightly restless. Has a niece at the bedside. Some blood in the Sandoval catheter. Not eating much. Had half a toast earlier. Ensure ordered. Patient only answering occasional question. Bit of traumatic hematuria with Sandoval catheter. Flush bladder. Prognosis guarded. Discussed with niece at the bedside. 06/01/2022: Has a bedside sitter. Has been restless. Did require a dose of Haldol earlier today. Patient actually did eat breakfast. With assistance. Swished over to oral Lasix. Remains on high flow 15 L. Altern[address] with BiPAP. Dr. Bocanegra placed a consult for hospice. Active Medications Albuterol/Ipratropium (Ipratropium-Albuterol 3 Ml Neb) 3 ml INHALATION RT-Q4H [facility] Last Admin: 06/01/22 15:38 Dose: Not Given Aspirin (Aspirin 81 Mg) 81 mg PO DAILY [facility] Last Admin: 06/01/22 08:06 Dose: 81 mg Atorvastatin Calcium (Atorvastatin 40 Mg Tab) 40 mg PO HS [facility] Last Admin: 05/31/22 21:30 Dose: 40 mg Clopidogrel Bisulfate (Clopidogrel 75 Mg Tab) 75 mg PO DAILY [facility] Last Admin: 06/01/22 08:06 Dose: 75 mg Dextrose/Water (Dextrose 50% Syringe 50 Ml) 25 ml IVP PER PROTOCOL PRN; Protocol PRN Reason: Hypoglycemia Dextrose/Water (Dextrose 50% Syringe 50 Ml) 50 ml IVP PER PROTOCOL PRN; Protocol PRN Reason: Hypoglycemia Fluticasone Propionate (Fluticasone 50mcg/[place] Nasal 16gm) 1 spray EA NOSTRIL DAILY@0800 [facility] Last Admin: 06/01/22 08:07 Dose: Not Given Furosemide (Furosemide 80 Mg Tab) 80 mg PO BID@0900,1600 [facility] Gabapentin (Gabapentin 300 Mg Cap) 300 mg PO HS [facility] Last Admin: 05/31/22 21:30 Dose: 300 mg Guaifenesin (Guaifenesin 600 Mg Tablet.Er) 600 mg PO BID@0800,2000 [facility] Last Admin: 06/01/22 08:06 Dose: 600 mg Insulin Aspart (Insulin Aspart (Novolog) 100 Unit/Ml Vial) 0 unit SQ ACHS [facility]; Protocol Last Admin: 06/01/22 12:20 Dose: 4 unit Loratadine (Loratadine 10 Mg Tab) 10 mg PO DAILY [facility] Last Admin: 06/01/22 08:06 Dose: 10 mg Lorazepam (Lorazepam 0.5 Mg Tab) 0.5 mg PO HS [facility] Last Admin: 05/31/22 21:30 Dose: 0.5 mg Lorazepam (Lorazepam 2 Mg/Ml Inj) 0.5 mg IV Q6HR PRN PRN Reason: Anxiety Last Admin: 06/01/22 11:37 Dose: 0.5 mg Naloxone HCl (Naloxone 0.4 Mg/Ml 1 Ml Vial) 0.2 mg IV Q2M PRN PRN Reason: Opioid Reversal Tramadol HCl (Tramadol 50 Mg Tab) 50 mg PO Q8H PRN PRN Reason: Pain Last Admin: 05/31/22 21:30 Dose: 50 mg On examination: VITAL SIGNS: Afebrile, 88, 20, 1 26 x 60, 94% on 15 L] GENERAL APPEARANCE: Tired, restless HEENT: Normal external appearance of nose and ear. Oral cavity normal EYES: Pupils equal. Conjunctiva normal. NECK: JVD unable to assess. Mass not palpable. RESPIRATORY: Respiratory effort increased Lungs decreased breath sounds mild wheezing CARDIOVASCULAR: First and second sounds normal. No edema. ABDOMEN: Soft. Liver and spleen not palpable. No tenderness. No mass palpable. PSYCHIATRY: Restless INVESTIGATIONS, reviewed in the clinical context: 06/01/2022: Depression 4.6 creatinine 1.23 2-D echocardiogram: EF 30%. Right ventricle dilated. Technical difficulties. 05/31/2022: WBC 17.6 hemoglobin 12.9 platelets 173 potassium 5 BUN 105 creatinine 1.4 AST 74 ALT was 63 Assessment/Plan: -Acute exacerbation of systolic CHF , EF 35%, Changed over to by mouth Lasix -Elevated Troponin, Type II [place] Aspirin -TRAVIS due to Cardiorenal syndrome -better -Hyperkalemia : Some improvement -Transaminitis due to hepatic congestion -HTN Currently on diuretics -Acute on chronic Hypercapnic respiratory failure due to obesity hypoventilation syndrome : Slow to respond BiPAP alternating with high flow 15 L nasal cannula. -Acute encephalopathy, with delirium multifactorial : Not improving Treat underlying conditions -DM 2, chronically on oral hypoglycemic Hold metformin. Follow Accu-Cheks -Hyperlipidemia Lipitor -Chronic thrombocytopenia Currently platelets good -Hematuria likely traumatic from Sandoval catheter Flush Sandoval catheter. -DO NOT RESUSCITATE Patient remains on high flow nasal cannula. Alternating with BiPAP. Change to oral Lasix. Did tolerate his breakfast. Prognosis guarded. Dr. Bocanegra placed a consult for hospice.
[2022-06-01 16:58] LABS: Glucose,Whole Blood 127 mg/dL (70-110)
[2022-06-01 20:30] LABS: Glucose,Whole Blood 130 mg/dL (70-110)
[2022-06-01] MEDS: GABAPENTIN 300 MG CAP PO SCH (20:59)
[2022-06-01] MEDS: traMADol 50 MG TAB PO PRN (20:59)
[2022-06-01] MEDS: ATORVASTATIN 40 MG TAB PO SCH (20:59)
[2022-06-01] MEDS: LORazepam 0.5 MG TAB PO SCH (21:00)
[2022-06-01 22:53] VITALS: BP 113/94; PULSE 88; RESP 18
[2022-06-02] MEDS ORDERED: ENOXAPARIN 40 MG/0.4 ML SYRINGE SQ SCH (09:00)
--- NOTE | 2022-06-02 16:27 | P.DS ---
Providers Date of admission: 05/29/22 12:58 Expected date of discharge: 06/01/22 Attending physician: Navid Orantes Consults: 05/29/22 12:58 Consult Physician Urgent Consulting Provider: [facility] Consult Reason/Comments: acute chf exacerbation Do you want consulting provider notified?: Yes 05/29/22 16:05 Consult Physician Routine Consulting Provider: Nolberto Bocanegra Reason/Comments: respiratory failure Do you want consulting provider notified?: Yes Primary care physician: [facility] Course: Hospital course: Patient is a an 89-year-old male with known diabetes, hypertension, dyslipidemia, and coronary artery disease who presented to the hospital from his correction due to low oxygen levels and decreased responsiveness. On arrival to the ER his initial vital signs were within normal limits. O2 sat was 96% on a mask. Laboratory analysis was remarkable for sodium 133, potassium 5.6, BUN 104, creatinine 1.8, AST 78, ALT 102, troponin 0.062, and BNP 23,300. Initial ABG showed pH of 7.19 with pO2 78. Patient was transitioned to BiPAP. Chest x- ray showed cardiomegaly with pulmonary venous congestion and bilateral pleural effusions. He was given a dose of Lasix. Arrangements were made for admission. He continued to be acidotic and his BiPAP settings were optimized. He was continued on scheduled Lasix. Cardiology and pulmonary were consulted. Patient seen and examined at bedside. He again is lethargic. He does open eyes to sternal rub. He tries to that my hand away but he is not conversational. No family present at bedside. 05/31/2022: I assumed care of patient today Patient is slightly restless. Has a niece at the bedside. Some blood in the Sandoval catheter. Not eating much. Had half a toast earlier. Ensure ordered. Patient only answering occasional question. Bit of traumatic hematuria with Sadnoval catheter. Flush bladder. Prognosis guarded. Discussed with niece at the bedside. 06/01/2022: Has a bedside sitter. Has been restless. Did require a dose of Haldol earlier today. Patient actually did eat breakfast. With assistance. Swished over to oral Lasix. Remains on high flow 15 L. Alternating with BiPAP. Dr. Bocanegra placed a consult for hospice. Late in the evening patient INVESTIGATIONS, reviewed in the clinical context: 06/01/2022: Depression 4.6 creatinine 1.23 2-D echocardiogram: EF 30%. Right ventricle dilated. Technical difficulties. 05/31/2022: WBC 17.6 hemoglobin 12.9 platelets 173 potassium 5 BUN 105 creatinine 1.4 AST 74 ALT was 63 Cause of : Hypertensive heart disease Assessment/Plan: -Acute exacerbation of systolic CHF , EF 35%, Changed over to by mouth Lasix -Elevated Troponin, Type II OR Aspirin -TRAVIS due to Cardiorenal syndrome -better -Hyperkalemia : Some improvement -Transaminitis due to hepatic congestion -HTN Currently on diuretics -Acute on chronic Hypercapnic respiratory failure due to obesity hypoventilation syndrome : Slow to respond BiPAP alternating with high flow 15 L nasal cannula. -Acute encephalopathy, with delirium multifactorial : Not improving Treat underlying conditions -DM 2, chronically on oral hypoglycemic Hold metformin. Follow Accu-Cheks -Hyperlipidemia Lipitor -Chronic thrombocytopenia Currently platelets good -Hematuria likely traumatic from Sandoval catheter Flush Sandoval catheter. -DO NOT RESUSCITATE Patient remains on high flow nasal cannula. Alternating with BiPAP. Change to oral Lasix. Did tolerate his breakfast. Prognosis guarded. Dr. Bocanegra placed a consult for hospice. Plan - Discharge Summary New Discharge Prescriptions: No Action Aspirin 81 mg PO DAILY #100 chew Acetaminophen [Tylenol Arthritis] 650 mg PO Q6H PRN PRN Reason: Pain Or Fever > 100.5 Potassium Chloride ER [K-Dur 20] 20 meq PO DAILY Cyanocobalamin (Vitamin B-12) [Vitamin B-12] 1,000 mcg PO DAILY Atorvastatin [Lipitor] 40 mg PO HS Clopidogrel Bisulfate [Plavix] 75 mg PO DAILY #30 tab guaiFENesin [guaiFENesin Oral Solution] 10 mg PO Q6H PRN PRN Reason: Cough Menthol [Biofreeze] 1 applic TOPICAL Q8H PRN PRN Reason: RIGHT SHOULDER PAIN Albuterol Nebulized [Ventolin Nebulized] 2.5 mg INHALATION RT-Q4H Acetaminophen Tab [Tylenol] 650 mg PO BID metFORMIN HCL 500 mg PO DAILY Loratadine 10 mg PO DAILY Folic Acid 0.8 mg PO DAILY@0800 Cholecalciferol [Vitamin D3 (25 Mcg = 1000 Iu)] 50 mcg PO DAILY Multivitamins, Thera [Multivitamin (formulary)] 1 tab PO DAILY traMADol HCL 50 mg PO Q8H PRN PRN Reason: Pain Melatonin 5 mg PO HS PRN PRN Reason: SLEEP guaiFENesin [guaiFENesin ER] 600 mg PO BID@0800,2000 Furosemide [Lasix] 40 mg PO BID@0700,1600 PRN PRN Reason: Hold if sbp below 105 Thiamine [Vitamin B-1] 100 mg PO DAILY Amoxic-Pot Clav 875-125Mg [Augmentin 875-125] 1 tab PO Q12HR Gabapentin 300 mg PO HS Fluticasone Nasal [place] [Flonase Nasal [place]] 1 spray EA NOSTRIL DAILY@0800 LORazepam [Ativan] 0.5 mg PO HS Discharge Medication List Aspirin 81 mg PO DAILY #100 chew 10/23/19 [Rx] Acetaminophen [Tylenol Arthritis] 650 mg PO Q6H PRN 07/31/20 [History] Atorvastatin [Lipitor] 40 mg PO HS 07/31/20 [History] Cyanocobalamin (Vitamin B-12) [Vitamin B-12] 1,000 mcg PO DAILY 07/31/20 [History] Potassium Chloride ER [K-Dur 20] 20 meq PO DAILY 07/31/20 [History] Multivitamins, Thera [Multivitamin (formulary)] 1 tab PO DAILY 09/20/20 [History] Clopidogrel Bisulfate [Plavix] 75 mg PO DAILY #30 tab 09/23/20 [Rx] Acetaminophen Tab [Tylenol] 650 mg PO BID 05/29/22 [History] Albuterol Nebulized [Ventolin Nebulized] 2.5 mg INHALATION RT-Q4H 05/29/22 [History] Amoxic-Pot Clav 875-125Mg [Augmentin 875-125] 1 tab PO Q12HR 05/29/22 [History] Cholecalciferol [Vitamin D3 (25 Mcg = 1000 Iu)] 50 mcg PO DAILY 05/29/22 [History] Fluticasone Nasal [place] [Flonase Nasal [place]] 1 spray EA NOSTRIL DAILY@0800 05/29/22 [History] Folic Acid 0.8 mg PO DAILY@0800 05/29/22 [History] Furosemide [Lasix] 40 mg PO BID@0700,1600 PRN 05/29/22 [History] Gabapentin 300 mg PO HS 05/29/22 [History] LORazepam [Ativan] 0.5 mg PO HS 05/29/22 [History] Loratadine 10 mg PO DAILY 05/29/22 [History] Melatonin 5 mg PO HS PRN 05/29/22 [History] Menthol [Biofreeze] 1 applic TOPICAL Q8H PRN 05/29/22 [History] Thiamine [Vitamin B-1] 100 mg PO DAILY 05/29/22 [History] guaiFENesin [guaiFENesin ER] 600 mg PO BID@0800,199905/29/22 [History] guaiFENesin [guaiFENesin Oral Solution] 10 mg PO Q6H PRN 05/29/22 [History] metFORMIN HCL 500 mg PO DAILY 05/29/22 [History] traMADol HCL 50 mg PO Q8H PRN 05/29/22 [History] Follow up Appointment(s)/Referral(s): Benigno Naik DO [Primary Care Provider] - 1-2 days Discharge Disposition: - Preliminary Cause of Preliminary Cause of : Hypertensive heart disease
== END 2022-06-01 22:50 | disposition expired ==
LOC: EC 10:42 → 3SCARD 12:58
PROVIDERS: ADMIT Hospitalist; ATTEND Hospitalist
PROC: 5A09357 Assistance with Respiratory Ventilation, Less than 24 Consecutive Hours, Continuous Positive Airway Pressure (ICD-10-PCS; principal; 2022-05-29)
DX: I13.0 Hypertensive heart and chronic kidney disease with heart failure and stage 1 through stage 4 chronic kidney disease, or unspecified chronic kidney disease (principal); I21.A1 Myocardial infarction type 2; I50.23 Acute on chronic systolic (congestive) heart failure; J96.21 Acute and chronic respiratory failure with hypoxia; J96.22 Acute and chronic respiratory failure with hypercapnia; E66.2 Morbid (severe) obesity with alveolar hypoventilation; E87.20 Acidosis, unspecified; F03.93 Unspecified dementia, unspecified severity, with mood disturbance; F03.94 Unspecified dementia, unspecified severity, with anxiety; Z68.41 Body mass index [BMI] 40.0-44.9, adult; F05 Delirium due to known physiological condition; G93.40 Encephalopathy, unspecified; N17.9 Acute kidney failure, unspecified; T83.83XA Hemorrhage due to genitourinary prosthetic devices, implants and grafts, initial encounter; Z20.822 Contact with and (suspected) exposure to COVID-19; I42.9 Cardiomyopathy, unspecified; Z66 Do not resuscitate; D69.6 Thrombocytopenia, unspecified; E11.22 Type 2 diabetes mellitus with diabetic chronic kidney disease; E78.5 Hyperlipidemia, unspecified; E87.5 Hyperkalemia; I08.3 Combined rheumatic disorders of mitral, aortic and tricuspid valves; N18.9 Chronic kidney disease, unspecified; R31.9 Hematuria, unspecified; I25.10 Atherosclerotic heart disease of native coronary artery without angina pectoris; I87.8 Other specified disorders of veins; R00.0 Tachycardia, unspecified; R74.01 Elevation of levels of liver transaminase levels; J44.9 Chronic obstructive pulmonary disease, unspecified; K76.1 Chronic passive congestion of liver; Z79.02 Long term (current) use of antithrombotics/antiplatelets; Z79.82 Long term (current) use of aspirin; Z79.84 Long term (current) use of oral hypoglycemic drugs; Z79.899 Other long term (current) drug therapy; Z86.73 Personal history of transient ischemic attack (TIA), and cerebral infarction without residual deficits; Z87.891 Personal history of nicotine dependence
CPT/HCPCS: 36415; 36600; 71045; 71046; 80048; 80053; 82805; 83036; 83605; 83735; 83880; 84100; 84484; 85025; 85027; 85610; 85730; 93005; 93306; 94640; 94660; 94760; 96365; 96366; 96374; 96375; 99291